=== PATIENT | male | born 1955 | race Caucasian/White ===

== ENCOUNTER → 2017-09-17 | Outpatient (CLI) | payer BC ==
[2017-09-17 13:16] LABS: ALANINE AMINOTRANSFERASE 39 U/L (21-72); ALBUMIN 4.4 g/dL (3.5-5.0); ALKALINE PHOSPHATASE 115 U/L (38-126); ANION GAP 11 (5-19); ASPARTATE AMINO TRANSFERASE 24 U/L (17-59); BILIRUBIN,DIRECT 0.5 mg/dL (0.0-0.4); BILIRUBIN,TOTAL 0.7 mg/dL (0.2-1.3); BLOOD UREA NITROGEN 19 mg/dL (7-20); CALCIUM 9.7 mg/dL (8.4-10.2); CARBON DIOXIDE 27 mmol/L (22-30); CHLORIDE 108 mmol/L (98-107); CREATININE RESULT 0.98 mg/dL (0.52-1.25); GLUCOSE 99 mg/dL (75-110); SODIUM 145.9 mmol/L (137-145); TOTAL PROTEIN 7.3 g/dL (6.3-8.2)
== END ==
LOC: LAB 12:18
PROVIDERS: ATTEND Registered Nurse
DX: E11.65 Type 2 diabetes mellitus with hyperglycemia (principal)
CPT/HCPCS: 36415; 80053; 83036

== ENCOUNTER 2017-10-19 07:54 | Emergency (ER) | payer BC ==
[2017-10-19] MEDS ORDERED: MORPHINE SULFATE 10 MG/ML INJ IV ONE ×2 (08:01→09:27)
[2017-10-19 08:31] LABS: ABSOLUTE BASOPHILS # (AUTO) 0.1 10^3/uL (0.0-0.2); ABSOLUTE EOSINOPHILS # (AUTO) 0.2 10^3/uL (0.0-0.6); ABSOLUTE LYMPHOCYTES (AUTO) 2.4 10^3/uL (0.5-4.7); ABSOLUTE MONOCYTES (AUTO) 0.9 10^3/uL (0.1-1.4); ABSOLUTE NEUT (AUTO) 3.8 10^3/uL (1.7-8.2); EOSINOPHILS % (AUTO) 2.3 % (0-6); HEMATOCRIT 43.4 % (37.9-51.0); HEMOGLOBIN 14.7 g/dL (13.5-17.0); LYMPHOCYTES % (AUTO) 32.7 % (13-45); MEAN CORPUSCULAR HEMOGLOBIN 31.6 pg (27.0-33.4); MEAN CORPUSCULAR HGB CONC 33.8 g/dL (32.0-36.0); MEAN CORPUSCULAR VOLUME 94 fl (80-97); MONOCYTES % (AUTO) 12.4 % (3-13); PLATELET COUNT 204 10^3/uL (150-450); RED BLOOD COUNT 4.64 10^6/uL (4.35-5.55); RED CELL DISTRIBUTION WIDTH 14.4 % (11.5-14.0); SEGMENTED NEUTROPHILS % (AUTO) 51.6 % (42-78); TOTAL CELLS COUNTED % (AUTO) 100 %; WHITE BLOOD COUNT 7.3 10^3/uL (4.0-10.5)
--- NOTE | 2017-10-19 08:52 | ER Document Report ---
ED General - General Chief Complaint: Fall Stated Complaint: FALL/BACK PAIN Time Seen by Provider: 10/19/17 08:00 Mode of Arrival: Ambulatory Information source: Patient Notes: 62-year-old male history of previous back fracture T11-T12 presents with complaints of slipping on ice falling on his back. Patient was found laying on the ice in the parking lot he states he was down for approximately 10 minutes. Patient's largest complaint is rib pain on the right side states he is able to move his extremities TRAVEL OUTSIDE OF THE [place] IN LAST 30 DAYS: No - HPI Onset: Just prior to arrival Onset/Duration: Sudden Quality of pain: Sharp Severity: Severe Pain Level: 5 Associated symptoms: Body/muscle aches Exacerbated by: Movement Relieved by: Denies Similar symptoms previously: No Recently seen / treated by doctor: No - Related Data Allergies/Adverse Reactions: butorphanol tartrate [From Stadol] Allergy (Unknown, Verified 10/19/17 08:33) nalbuphine HCl [From Nubain] Allergy (Unknown, Verified 10/19/17 08:33) pseudoephedrine HCl [From Sudafed] Allergy (Unknown, Verified 10/19/17 08:33) triprolidine HCl [From Actifed] Allergy (Unknown, Verified 10/19/17 08:33) Past Medical History - Social History Smoking Status: Never Smoker Cigarette use (# per day): No Chew tobacco use (# tins/day): No Smoking Education Provided: No Frequency of alcohol use: None Drug Abuse: None Family History: DM, Hypertension Patient has suicidal ideation: No Patient has homicidal ideation: No - Past Medical History Cardiac Medical History: Reports: Hx Coronary Artery Disease, Hx Hypercholesterolemia, Hx Hypertension Pulmonary Medical History: Denies: Hx Tuberculosis Endocrine Medical History: Reports: Hx Diabetes Mellitus Type 2 Renal/ Medical History: Reports: Hx Kidney Stones. Denies: Hx Peritoneal Dialysis GI Medical History: Reports: Hx Gastroesophageal Reflux Disease Psychiatric Medical History: Reports: Hx Depression Past Surgical History: Reports: Hx Appendectomy, Hx Cardiac Catheterization - 1 stent, Hx Coronary Stent, Hx Orthopedic Surgery - shoulder, knee, elbow - Immunizations Hx Diphtheria, Pertussis, Tetanus Vaccination: Yes Hx Pneumococcal Vaccination: 09/11/12 Review of Systems - Review of Systems Notes: REVIEW OF SYSTEMS: CONSTITUTIONAL : Denies fever, chills, or sweats. Denies recent illness. EENT: Denies eye, ear, throat, or mouth pain or symptoms. Denies nasal or sinus congestion or discharge. Denies throat, tongue, or mouth swelling or difficulty swallowing. CARDIOVASCULAR: Denies chest pain. Denies palpitations or racing or irregular heart beat. Denies ankle edema. RESPIRATORY: Denies cough, cold, or chest congestion. Denies shortness of breath, difficulty breathing, or wheezing. GASTROINTESTINAL: Denies abdominal pain or distention. Denies nausea, vomiting , or diarrhea. Denies blood in vomitus, stools, or per rectum. Denies black, tarry stools. Denies constipation. GENITOURINARY: Denies difficulty urinating, painful urination, burning, frequency, blood in urine, or discharge. MUSCULOSKELETAL: Admits to back pain right rib pain SKIN: Denies rash, lesions or sores. HEMATOLOGIC : Denies easy bruising or bleeding. LYMPHATIC: Denies swollen, enlarged glands. NEUROLOGICAL: Denies confusion or altered mental status. Denies passing out or loss of consciousness. Denies dizziness or lightheadedness. Denies headache. Denies weakness or paralysis or loss of use of either side. Denies problems with gait or speech. Denies sensory loss, numbness, or tingling. Denies seizures. PSYCHIATRIC: Denies anxiety or stress. Denies depression, suicidal ideation, or homicidal ideation. ALL OTHER SYSTEMS REVIEWED AND NEGATIVE. Dictation was performed using [employer] voice recognition software PHYSICAL EXAMINATION: GENERAL: Well-appearing, well-nourished and in no acute distress. HEAD: Atraumatic, normocephalic. EYES: Pupils equal round and reactive to light, extraocular movements intact, sclera anicteric, conjunctiva are normal. ENT: Nares patent, oropharynx clear without exudates. Moist mucous membranes. NECK: C-collar immediately placed LUNGS: Breath sounds clear to auscultation bilaterally and equal. No wheezes rales or rhonchi. HEART: Regular rate and rhythm without murmurs ABDOMEN: Soft, nontender, nondistended abdomen. No guarding, no rebound. No masses appreciated. Musculoskeletal: Patient is noted to have tenderness on palpation of the thoracic spine right-sided ribs NEUROLOGICAL: Cranial nerves grossly intact. Normal speech, normal gait. Normal sensory, motor exams PSYCH: Normal mood, normal affect. SKIN: Warm, Dry, normal turgor, no rashes or lesions noted. Course - Re-evaluation Re-evalutation: 10/19/17 08:51 Lab work imaging is pending patient was found by nurse tells leaving may have been down for approximately 10 minutes, the cold wet clothes were taken off the patient and multiple blankets were placed, trauma workup pending 10/19/17 10:02 CT imaging noted no significant abnormality, I discussed patient's pain, I will give him off from work for 1 week given his traumatic injury, he is otherwise well-appearing has no neurological deficits and stable for discharge After performing a Medical Screening Examination, I estimate there is LOW risk for INTRACRANIAL HEMORRHAGE, UNSTABLE SPINE FRACTURE, CENTRAL CORD SYNDROME, CAUDA EQUINA, THORACIC AORTIC DISSECTION, PNEUMOTHORAX, PERFORATED BOWEL, RUPTURED ABDOMINAL AORTIC ANEURYSM, ACUTE TENDON RUPTURE, COMPARTMENT SYNDROME, or OPEN FRACTURE, thus I consider the discharge disposition reasonable. Also, there is no evidence or peritonitis, sepsis, or toxicity. I have reevaluated this patient multiple times and no significant life threatening changes are noted. The patient and I have discussed the diagnosis and risks, and we agree with discharging home to follow-up with their primary doctor with the understanding that symptoms and presentations can change. We also discussed returning to the Emergency Department immediately if new or worsening symptoms occur. We have discussed the symptoms which are most concerning (e.g., bloody stool, fever, changing or worsening pain, vomiting) that necessitate immediate return. - Laboratory Result Diagrams: 10/19/17 08:18 10/19/17 08:18 Laboratory results interpreted by me: 10/19/17 10/19/17 08:18 08:18 RDW 14.4 H Chloride 108 H BUN 22 H - Diagnostic Test Radiology reviewed: Image reviewed, Reports reviewed Discharge - Discharge Clinical Impression: Rib pain on right side Fall Qualifiers: Encounter type: initial encounter Qualified Code(s): W19.XXXA - Unspecified fall, initial encounter Condition: Stable Disposition: HOME, SELF-CARE Instructions: Rib Contusion ([facility]) Additional Instructions: Follow up with your physician tomorrow for further care or return to the ED IMMEDIATELY if symptoms worsen or new concerns occur. If you cannot afford to follow up with your primary care physician a list of low cost clinics have been provided at the end of your discharge papers as well. Prescriptions: Oxycodone HCl/Acetaminophen [Percocet 5-325 mg Tablet] 1 - 2 tab PO Q4H PRN #20 tablet PRN Reason:
[2017-10-19 08:54] LABS: ALANINE AMINOTRANSFERASE 37 U/L (21-72); ALBUMIN 4.2 g/dL (3.5-5.0); ALKALINE PHOSPHATASE 102 U/L (38-126); ANION GAP 9 (5-19); ASPARTATE AMINO TRANSFERASE 29 U/L (17-59); BILIRUBIN,DIRECT 0.3 mg/dL (0.0-0.4); BILIRUBIN,TOTAL 0.4 mg/dL (0.2-1.3); BLOOD UREA NITROGEN 22 mg/dL (7-20); CALCIUM 9.7 mg/dL (8.4-10.2); CARBON DIOXIDE 28 mmol/L (22-30); CHLORIDE 108 mmol/L (98-107); GLUCOSE 100 mg/dL (75-110); POTASSIUM 4.1 mmol/L (3.6-5.0); SODIUM 144.8 mmol/L (137-145); TOTAL PROTEIN 7.2 g/dL (6.3-8.2)
--- NOTE | 2017-10-19 09:31 | RADIOLOGY REPORT (SQ) ---
EXAM DESCRIPTION: CT CERVICAL SPINE WITHOUT COMPLETED DATE/TIME: 10/19/2017 9:21 am REASON FOR STUDY: fall COMPARISON: CT cervical spine 09/29/2013 TECHNIQUE: Axial images acquired through the cervical spine without intravenous contrast. Images re viewed with lung, soft tissue and bone windows. Reconstructed coronal and sagittal MPR images review ed. Images stored on PACS. All CT scanners at this facility use dose modulation, iterative reconstruction, and/or weight based d osing when appropriate to reduce radiation dose to as low as reasonably achievable (ALARA). [facility]: Dose Right [facility]: CareDose [facility]: Dose Right [facility]: Teradose 4D [facility]: Smart [employer] RADIATION DOSE: CT Rad equipment meets quality standard of care and radiation dose reduction techniq ues were employed. CTDIvol: 25.3 mGy. DLP: 519 mGy-cm. mGy. LIMITATIONS: None. FINDINGS: ALIGNMENT: Anatomic. MINERALIZATION: Normal. VERTEBRAL BODIES: No fractures or dislocation. DISCS: No high-grade central canal narrowing. FACETS, LATERAL MASSES, POSTERIOR ELEMENTS: No fractures. No dislocation. No acute findings.There i s multilevel foraminal narrowing from facet and uncovertebral hypertrophy. HARDWARE: None in the spine. VISUALIZED RIBS: No fractures. LUNG APICES AND SOFT TISSUES: No significant or acute findings. OTHER: No other significant finding. IMPRESSION: NO ACUTE FINDINGS IN THE CERVICAL SPINE. TECHNICAL DOCUMENTATION: JOB ID: [id number] Quality ID # [id number]: Final reports with documentation of one or more dose reduction techniques (e.g., Au tomated exposure control, adjustment of the mA and/or kV according to patient size, use of iterative reconstruction technique) 2010 [employer]- All Rights Reserved
--- NOTE | 2017-10-19 09:42 | RADIOLOGY REPORT (SQ) ---
EXAM DESCRIPTION: CT CHEST WITH; CT ABD/PELVIS WITH IV ONLY COMPLETED DATE/TIME: 10/19/2017 9:21 am REASON FOR STUDY: fall injury, pain right-sided chest and abdomen COMPARISON: CT abdomen pelvis 01/08/2016 CT chest 04/27/2014 CONTRAST TYPE AND DOSE: contrast/concentration: Isovue 370.00 mg/ml; Total Contrast Delivered: 99.0 ml; Total Saline Delivered: 48.3 ml RENAL FUNCTION: Creatinine 0.98 TECHNIQUE: CT scan of the chest performed using helical scanning technique with dynamic intravenous contrast injection. Images reviewed with lung, soft tissue and bone windows. Reconstructed coronal a nd sagittal MPR images reviewed. All images stored on PACS. CT scan of the abdomen and pelvis performed with intravenous and without oral contrastusing helical s radha technique with dynamic intravenous contrast injection. Images reviewed with lung, soft tissu e and bone windows. Reconstructed coronal and sagittal MPR images reviewed. Delayed images for eval uation of the urinary system also acquired and evaluated. All images stored on PACS. All CT scanners at this facility use dose modulation, iterative reconstruction, and/or weight based d osing when appropriate to reduce radiation dose to as low as reasonably achievable (ALARA). [facility]: Dose Right [facility]: CareDose [facility]: Dose Right [facility]: Teradose 4D [facility]: [employer] RADIATION DOSE: CT Rad equipment meets quality standard of care and radiation dose reduction techniq ues were employed. CTDIvol: 20.4 - 21.0 mGy. DLP: 2721 mGy-cm. . LIMITATIONS: None. FINDINGS: CHEST: LUNGS AND PLEURA: No opacities, nodules, masses. No pneumothorax. No effusions. HILAR AND MEDIASTINAL STRUCTURES: No identified masses or abnormal nodes. HEART AND VASCULAR STRUCTURES: No aneurysm or dissection. No central pulmonary emboli. No pericardi al effusion. LAD stent versus very heavy [place] coronary artery calcification HARDWARE: None. THYROID AND OTHER SOFT TISSUES: No masses. No adenopathy. BONES: No significant finding. OTHER: No other significant finding. ABDOMEN AND PELVIS: LIVER: Normal size. No masses. No dilated ducts. SPLEEN: Normal size. No focal lesions. PANCREAS: No masses. No significant calcifications. No adjacent inflammation or peripancreatic fluid collections. Pancreatic duct not dilated. GALLBLADDER: No identified stones by CT criteria. No inflammatory changes to suggest cholecystitis. ADRENAL GLANDS: No significant masses or asymmetry. RIGHT KIDNEY AND URETER: No solid masses. 8 to 9 mm right midpole intrarenal nonobstructive stone, 8 10 Hounsfield units. No hydronephrosis or hydroureter. LEFT KIDNEY AND URETER: No solid masses. No significant calcification. No hydronephrosis or hydrouret er. AORTA AND VESSELS: No aneurysm. No dissection. Renal arteries, SMA, celiac without stenosis. Duplica franci inferior vena cava. RETROPERITONEUM: No retroperitoneal adenopathy, hemorrhage or masses. BOWEL AND PERITONEAL CAVITY: No masses or inflammatory changes. No free fluid or peritoneal masses. APPENDIX: Surgically absent ABDOMINAL WALL: No masses. No hernias. BONES: No significant or acute findings. PELVIS: No other significant finding. No free fluid. Urinary bladder unremarkable. No masses or ad enopathy. IMPRESSION: NORMAL CT OF THE CHEST WITH IV CONTRAST. NORMAL CT OF THE ABDOMEN AND PELVIS WITH ORAL AND INTRAVENOUS CONTRAST. TECHNICAL DOCUMENTATION: JOB ID: [id number] Quality ID # [id number]: Final reports with documentation of one or more dose reduction techniques (e.g., Au tomated exposure control, adjustment of the mA and/or kV according to patient size, use of iterative reconstruction technique) 2010 [employer]- All Rights Reserved
[2017-10-19 12:12] VITALS: BP 157/60
== END 2017-10-19 12:12 | disposition home or self-care (01) ==
LOC: ER 07:54
DX: T14.90XA Injury, unspecified, initial encounter (principal); R07.81 Pleurodynia; M54.9 Dorsalgia, unspecified; W00.0XXA Fall on same level due to ice and snow, initial encounter; Y92.481 Parking lot as the place of occurrence of the external cause; I25.10 Atherosclerotic heart disease of native coronary artery without angina pectoris; I10 Essential (primary) hypertension; E11.9 Type 2 diabetes mellitus without complications; Z88.5 Allergy status to narcotic agent; Z88.8 Allergy status to other drugs, medicaments and biological substances; Z95.5 Presence of coronary angioplasty implant and graft
CPT/HCPCS: 96376; 99283; 96374; 36415; 85025; 80053; 71260; 72125; 74177; J2270

== ENCOUNTER → 2018-01-20 | Outpatient (CLI) | payer BC ==
[2018-01-20 13:31] LABS: ALANINE AMINOTRANSFERASE 40 U/L (21-72); ALBUMIN 4.3 g/dL (3.5-5.0); ALKALINE PHOSPHATASE 98 U/L (38-126); ANION GAP 10 (5-19); ASPARTATE AMINO TRANSFERASE 26 U/L (17-59); BILIRUBIN,DIRECT 0.2 mg/dL (0.0-0.4); BILIRUBIN,TOTAL 0.5 mg/dL (0.2-1.3); BLOOD UREA NITROGEN 24 mg/dL (7-20); CALCIUM 9.9 mg/dL (8.4-10.2); CARBON DIOXIDE 31 mmol/L (22-30); CHLORIDE 106 mmol/L (98-107); CHOLESTEROL 141.56 mg/dL (0-200); GLUCOSE 97 mg/dL (75-110); SODIUM 147.2 mmol/L (137-145); TOTAL PROTEIN 6.8 g/dL (6.3-8.2); TRIGLYCERIDES 213 mg/dL (<150)
[2018-01-20 13:42] LABS: DIRECT LDL 68 mg/dL (<100)
[2018-01-20 13:44] LABS: VLDL CHOLESTEROL 42.6 mg/dL (10-31)
[2018-01-21 11:40] LABS: CREATININE URINE 194.3 mg/dL (Not Estab.)
[2018-01-21 12:07] LABS: MICROALBUMIN URINE <3.0 ug/mL (Not Estab.)
== END ==
LOC: LAB 12:24
PROVIDERS: ATTEND Registered Nurse
DX: E11.65 Type 2 diabetes mellitus with hyperglycemia (principal); E55.9 Vitamin D deficiency, unspecified
CPT/HCPCS: 36415; 80053; 80061; 82043; 82306; 82570; 83036

== ENCOUNTER → 2018-02-17 | Outpatient (CLI) | payer BC ==
[2018-02-17 20:18] LABS: HEMATOCRIT 48.4 % (37.9-51.0); HEMOGLOBIN 16.7 g/dL (13.5-17.0); MEAN CORPUSCULAR HEMOGLOBIN 32.8 pg (27.0-33.4); MEAN CORPUSCULAR HGB CONC 34.5 g/dL (32.0-36.0); MEAN CORPUSCULAR VOLUME 95 fl (80-97); PLATELET COUNT 254 10^3/uL (150-450); RED BLOOD COUNT 5.08 10^6/uL (4.35-5.55); RED CELL DISTRIBUTION WIDTH 14.6 % (11.5-14.0)
[2018-02-17 20:23] LABS: APPEARANCE,URINE CLEAR; BILIRUBIN,URINE NEGATIVE (NEGATIVE); COLOR,URINE YELLOW; GLUCOSE, URINE >=500 mg/dL (NEGATIVE); KETONES,URINE NEGATIVE (NEGATIVE); LEUKOCYTE ESTERASE,URINE NEGATIVE (NEGATIVE); NITRITE,URINE NEGATIVE (NEGATIVE); PROTEIN,URINE NEGATIVE (NEGATIVE); URINE SPECIFIC GRAVITY 1.025; UROBILINOGEN,URINE NEGATIVE mg/dL (<2.0)
[2018-02-17 20:24] LABS: ANION GAP 15 (5-19); BLOOD UREA NITROGEN 24 mg/dL (7-20); CALCIUM 10.3 mg/dL (8.4-10.2); CARBON DIOXIDE 29 mmol/L (22-30); CHLORIDE 104 mmol/L (98-107); GLUCOSE 104 mg/dL (75-110); POTASSIUM 4.8 mmol/L (3.6-5.0)
== END ==
LOC: LAB 19:43
PROVIDERS: ATTEND Internal Medicine Nephrology
DX: I12.9 Hypertensive chronic kidney disease with stage 1 through stage 4 chronic kidney disease, or unspecified chronic kidney disease (principal); N18.2 Chronic kidney disease, stage 2 (mild); E11.9 Type 2 diabetes mellitus without complications; M10.00 Idiopathic gout, unspecified site
CPT/HCPCS: 36415; 80048; 81001; 85027

== ENCOUNTER → 2018-03-10 | Outpatient (CLI) | payer BC ==
[2018-03-10 15:37] LABS: ANION GAP 15 (5-19); BLOOD UREA NITROGEN 18 mg/dL (7-20); CARBON DIOXIDE 29 mmol/L (22-30); CHLORIDE 102 mmol/L (98-107); GLUCOSE 162 mg/dL (75-110); POTASSIUM 4.7 mmol/L (3.6-5.0); SODIUM 145.5 mmol/L (137-145)
== END ==
LOC: LAB 15:02
PROVIDERS: ATTEND Internal Medicine Nephrology
DX: E87.6 Hypokalemia (principal); N18.2 Chronic kidney disease, stage 2 (mild)
CPT/HCPCS: 36415; 80048

== ENCOUNTER → 2018-03-24 | Outpatient (CLI) | payer BC | LOC: HHS 10:11 | DX: Z12.83 Encounter for screening for malignant neoplasm of skin (principal) ==

== ENCOUNTER → 2018-06-03 | Outpatient (CLI) | payer BC ==
[2018-06-03 19:28] LABS: ALANINE AMINOTRANSFERASE 42 U/L (21-72); ALBUMIN 4.2 g/dL (3.5-5.0); ALKALINE PHOSPHATASE 105 U/L (38-126); ANION GAP 15 (5-19); ASPARTATE AMINO TRANSFERASE 29 U/L (17-59); BILIRUBIN,DIRECT 0.2 mg/dL (0.0-0.4); BILIRUBIN,TOTAL 0.6 mg/dL (0.2-1.3); BLOOD UREA NITROGEN 24 mg/dL (7-20); CALCIUM 9.6 mg/dL (8.4-10.2); CARBON DIOXIDE 25 mmol/L (22-30); CHLORIDE 106 mmol/L (98-107); CHOLESTEROL 193.15 mg/dL (0-200); GLUCOSE 110 mg/dL (75-110); POTASSIUM 4.1 mmol/L (3.6-5.0); SODIUM 145.9 mmol/L (137-145); TOTAL PROTEIN 7.3 g/dL (6.3-8.2); TRIGLYCERIDES 179 mg/dL (<150)
[2018-06-03 19:39] LABS: DIRECT LDL 123 mg/dL (<100)
[2018-06-03 19:44] LABS: VLDL CHOLESTEROL 35.8 mg/dL (10-31)
== END ==
LOC: LAB 18:28
PROVIDERS: ATTEND Internal Medicine Endocrinology, Diabetes & Metabolism
DX: E11.65 Type 2 diabetes mellitus with hyperglycemia (principal)
CPT/HCPCS: 36415; 80053; 80061; 83036

== ENCOUNTER → 2018-08-30 | Outpatient (CLI) | payer BC ==
[2018-08-30 12:27] LABS: HEMATOCRIT 44.6 % (37.9-51.0); HEMOGLOBIN 15.3 g/dL (13.5-17.0); MEAN CORPUSCULAR HEMOGLOBIN 32.4 pg (27.0-33.4); MEAN CORPUSCULAR HGB CONC 34.3 g/dL (32.0-36.0); MEAN CORPUSCULAR VOLUME 94 fl (80-97); PLATELET COUNT 231 10^3/uL (150-450); RED BLOOD COUNT 4.73 10^6/uL (4.35-5.55); RED CELL DISTRIBUTION WIDTH 14.5 % (11.5-14.0); WHITE BLOOD COUNT 6.9 10^3/uL (4.0-10.5)
[2018-08-30 12:35] LABS: APPEARANCE,URINE CLEAR; BILIRUBIN,URINE NEGATIVE (NEGATIVE); COLOR,URINE YELLOW; GLUCOSE, URINE >=500 mg/dL (NEGATIVE); KETONES,URINE NEGATIVE (NEGATIVE); LEUKOCYTE ESTERASE,URINE NEGATIVE (NEGATIVE); NITRITE,URINE NEGATIVE (NEGATIVE); PROTEIN,URINE NEGATIVE (NEGATIVE)
[2018-08-30 12:45] LABS: ANION GAP 11 (5-19); BLOOD UREA NITROGEN 25 mg/dL (7-20); CALCIUM 9.7 mg/dL (8.4-10.2); CARBON DIOXIDE 26 mmol/L (22-30); CHLORIDE 109 mmol/L (98-107); GLUCOSE 83 mg/dL (75-110); POTASSIUM 4.6 mmol/L (3.6-5.0); SODIUM 145.5 mmol/L (137-145)
[2018-08-31 12:38] LABS: CREATININE URINE 139.5 mg/dL (Not Estab.); MICROALBUMIN URINE <3.0 ug/mL (Not Estab.)
== END ==
LOC: LAB 12:10
PROVIDERS: ATTEND Internal Medicine Nephrology
DX: I12.9 Hypertensive chronic kidney disease with stage 1 through stage 4 chronic kidney disease, or unspecified chronic kidney disease (principal); N18.2 Chronic kidney disease, stage 2 (mild); E87.6 Hypokalemia; M10.00 Idiopathic gout, unspecified site
CPT/HCPCS: 36415; 80048; 81001; 82043; 82570; 83735; 85027

== ENCOUNTER → 2018-09-16 | Outpatient (CLI) | payer BC ==
[2018-09-16 13:16] LABS: ALANINE AMINOTRANSFERASE 30 U/L (21-72); ALBUMIN 4.6 g/dL (3.5-5.0); ALKALINE PHOSPHATASE 100 U/L (38-126); ASPARTATE AMINO TRANSFERASE 26 U/L (17-59); BILIRUBIN,DIRECT 0.3 mg/dL (0.0-0.4); BILIRUBIN,TOTAL 0.5 mg/dL (0.2-1.3); TOTAL PROTEIN 7.5 g/dL (6.3-8.2); URIC ACID 5.3 mg/dL (3.5-8.5)
== END ==
LOC: LAB 12:19
PROVIDERS: ATTEND Nurse Practitioner
DX: E55.9 Vitamin D deficiency, unspecified (principal); E78.5 Hyperlipidemia, unspecified; M10.09 Idiopathic gout, multiple sites
CPT/HCPCS: 36415; 80076; 82306; 84153; 84550

== ENCOUNTER 2018-10-07 10:16 | Day surgery (SDC) | payer BC ==
[~2018-10-07 10:16] MED LIST: BALANCED SALT IRRIG SOLN COMB2 15 ML BOTTLE ONE; POVIDONE-IODINE 5% OPH PREP SOLN 30 ML ONE; TOBRAMYCIN SULFATE/DEXAMETH OPH OINTMENT 3.5 GM ONE
[2018-10-07] MEDS ORDERED: MIDAZOLAM 2 MG/2 ML INJ ONE ×2 (10:58→11:25)
[2018-10-07] MEDS ORDERED: PROPOFOL INJ 200 MG/20 ML VIAL IV ONE (10:58)
[2018-10-07] MEDS ORDERED: FENTANYL CITRATE INJ/PF 100 MCG/2 ML AMPUL ONE (10:58)
[2018-10-07] MEDS: BUPIVACAINE HCL 0.75% INJ/PF (7.5 MG/1 ML) 10 ML SDV ONE ×2 (11:27)
[2018-10-07] MEDS: LIDOCAINE 2% INJ-PF (20 MG/ML) 10 ML AMPUL ONE ×2 (11:27)
[2018-10-07] MEDS: THROMBIN (BOVINE) TOPICAL 5000 UNIT VIAL ONE ×2 (11:27)
[2018-10-07] MEDS: TETRACAINE HCL 0.5% OPH SOLN 4 ML ONE ×2 (11:27)
[2018-10-07] MEDS: NEO/POLYMYX B SULF/DEXAMETH OPH OINTMENT 3.5 GM ONE ×2 (12:04→12:25)
[2018-10-07] MEDS ORDERED: ACETAMINOPHEN 325 MG TABLET ONE (12:54)
--- NOTE | 2018-10-07 23:08 | [facility] OPERATIVE REPORT E ---
[facility] Operative Report NAME: CINTHYA CARR AGE: 63Y DATE OF SURGERY: 10/07/2018 ROOM: PREOPERATIVE DIAGNOSIS: BILATERAL UPPER LID DERMATOCHALASIA, FUNCTIONAL. OPERATION: Bilateral upper lid blepharoplasty, functional. ESTIMATED BLOOD LOSS: Less than 10 mL. SURGEON: PAUL CRAMER M.D. ANESTHESIA: 2% lidocaine with epinephrine as well as MAC. COMPLICATIONS: None. PROCEDURE: After obtaining appropriate informed consent, appropriate visual rankin were taken and the skin was found to be resting on the lashes, restricting his superior visual field. Photos were taken. The patient was brought back to the operating room, where the face was prepped with Betadine and sterile technique was used. The appropriate amount of skin was marked using a marking pen following the lid crease which was approximately 6 mm from the lash line, and then drawn out so the excess skin could be removed, being careful not to remove too much to cause any lag. After the appropriate markings were done, 2% lidocaine with epinephrine was injected into the lids to help with anesthesia. Following this, a 15 blade was used to cut along these pre-marked skin markings. Bleph scissors was used to excise the skin and part of the orbicularis. Hemostasis was achieved with cautery. Thrombin soaked sponges were applied to the incision. This was repeated on both upper lids. 6-0 silk was used to approximate the orbicularis skin in simple interrupted technique for 3 sutures across the wound. Following this, a 6-0 Nylon was used to run suture through the skin to approximate the incision. The appropriate amount of skin was taken. The patient tolerated the procedure well. Maxitrol ointment was placed on the incisions and the patient was brought back to postop recovery, where an ice pack was applied. DICTATING PHYSICIAN: PAUL CRAMER M.D. [id number] PHY#: [id number] ID: [id number] JOB#: [id number] ACCT: [id number] cc:PAUL CRAMER M.D. > MTDD
--- NOTE | 2018-10-07 23:08 | [facility] DISCHARGE SUMMARY E ---
[facility] Discharge Summary NAME: CINTHYA CARR AGE: 63Y ADMITTED: 10/07/2018 DISCHARGED: This 63-year-old male underwent bilateral upper lid blepharoplasty, functional. DIAGNOSIS: Bilateral upper lid dermatochalasis blocking his vision. He should be on a regular diet. No bending at the waist and no heavy lifting. He should apply his Maxitrol ointment to his lids twice daily and ice to his upper lids for 10 minutes every hour for the first 6 hours, followed by four times daily. I am going to see him for a 1-week postop and he is to call me if he has any questions or concerns. DICTATING PHYSICIAN: PAUL CRAMER M.D. [id number] Y#: 2013 [id number] ID: [id number] JOB#: [id number] ACCT: [id number] cc:PAUL CRAMER M.D. >
== END 2018-10-07 13:35 | disposition home or self-care (01) ==
LOC: SC 10:16
PROVIDERS: ATTEND Internal Medicine
DX: H02.831 Dermatochalasis of right upper eyelid (principal); H02.834 Dermatochalasis of left upper eyelid; H53.453 Other localized visual field defect, bilateral; E11.9 Type 2 diabetes mellitus without complications; I10 Essential (primary) hypertension; M19.90 Unspecified osteoarthritis, unspecified site; E78.00 Pure hypercholesterolemia, unspecified; M10.9 Gout, unspecified; Z87.891 Personal history of nicotine dependence; Z88.8 Allergy status to other drugs, medicaments and biological substances; Z79.82 Long term (current) use of aspirin; Z79.899 Other long term (current) drug therapy; Z79.02 Long term (current) use of antithrombotics/antiplatelets; Z79.84 Long term (current) use of oral hypoglycemic drugs
CPT/HCPCS: 15823; 82962; J2250; J3490 ×7; J3010; J2704; 103

== ENCOUNTER → 2019-01-19 | Outpatient (CLI) | payer BC ==
[2019-01-19 12:51] LABS: HEMOGLOBIN 15.9 g/dL (13.5-17.0); MEAN CORPUSCULAR HEMOGLOBIN 31.7 pg (27.0-33.4); MEAN CORPUSCULAR HGB CONC 33.9 g/dL (32.0-36.0); MEAN CORPUSCULAR VOLUME 94 fl (80-97); PLATELET COUNT 244 10^3/uL (150-450); RED BLOOD COUNT 5.02 10^6/uL (4.35-5.55); RED CELL DISTRIBUTION WIDTH 14.4 % (11.5-14.0); WHITE BLOOD COUNT 8.2 10^3/uL (4.0-10.5)
[2019-01-19 13:13] LABS: ALANINE AMINOTRANSFERASE 41 U/L (21-72); ALBUMIN 4.3 g/dL (3.5-5.0); ALKALINE PHOSPHATASE 88 U/L (38-126); ANION GAP 7 (5-19); ASPARTATE AMINO TRANSFERASE 29 U/L (17-59); BILIRUBIN,DIRECT 0.2 mg/dL (0.0-0.4); BILIRUBIN,TOTAL 0.8 mg/dL (0.2-1.3); BLOOD UREA NITROGEN 26 mg/dL (7-20); CALCIUM 10.3 mg/dL (8.4-10.2); CARBON DIOXIDE 26 mmol/L (22-30); CHLORIDE 108 mmol/L (98-107); CHOLESTEROL 212.24 mg/dL (0-200); GLUCOSE 79 mg/dL (75-110); POTASSIUM 4.4 mmol/L (3.6-5.0); SODIUM 140.8 mmol/L (137-145); TOTAL PROTEIN 7.3 g/dL (6.3-8.2); TRIGLYCERIDES 129 mg/dL (<150)
[2019-01-19 13:24] LABS: DIRECT LDL 137 mg/dL (<100)
== END ==
LOC: LAB 12:16
PROVIDERS: ATTEND Internal Medicine Endocrinology, Diabetes & Metabolism
DX: E11.65 Type 2 diabetes mellitus with hyperglycemia (principal)
CPT/HCPCS: 36415; 80053; 80061; 83036; 84443; 85027

== ENCOUNTER 2019-01-25 09:55 | Emergency (ER) | payer BC ==
[2019-01-25] MEDS ORDERED: ONDANSETRON HCL INJ/PF 4 MG/2 ML SDV ONE (10:18)
[2019-01-25] MEDS ORDERED: ONDANSETRON HCL INJ/PF 4 MG/2 ML SDV IV ONE (10:19)
--- NOTE | 2019-01-25 10:20 | ER Document Report ---
ED General - General Chief Complaint: Flank Pain Stated Complaint: FLANK PAIN/VOMITING Time Seen by Provider: 01/25/19 10:19 Primary Care Provider: GIBSON AGUILAR MD [Primary Care Provider] - Follow up as needed Mode of Arrival: Ambulatory Information source: Patient TRAVEL OUTSIDE OF THE [place] IN LAST 30 DAYS: No - HPI Notes: 63-year-old male presents to the ED with complaints of right flank pain that radiates down to right testicular area that started this morning around 2 AM, the pain comes and goes. When pain is severe, pain is 9 out of 10. Does have a history nephrolithiasis. Does not currently see a silver miner or urologist. Denies any trauma worse with time, nothing makes better. Denies fevers, chills, chest pain,palpitations, shortness of breath, dyspnea, nausea, vomiting, diarrhea, abdominal pain, hematuria,blurred vision, double vision, loss of vision, speech changes, LH, dizziness, syncope, headaches, wheezing, ST, URI, neck pain, weakness, bowel or bladder dysfunction, saddle anesthesia, numbness or tingling in bilateral upper or lower extremities equally, muscle paralysis, weakness in bilateral upper or lower extremities equally or rash. Denies IV drug use., is not tried any [id number] medication. - Related Data Allergies/Adverse Reactions: butorphanol tartrate [From Stadol] Allergy (Severe, Verified 01/25/19 09:57) Anaphylaxis pseudoephedrine HCl [From Sudafed] Allergy (Intermediate, Verified 01/25/19 09:57) Hives triprolidine HCl [From Actifed] Allergy (Intermediate, Verified 01/25/19 09:57) Hives nalbuphine HCl [From Nubain] Allergy (Unknown, Verified 01/25/19 09:57) Anaphylaxis TOMATO Allergy (Intermediate, Uncoded 01/25/19 09:57) Hives Past Medical History - General Information source: Patient - Social History Smoking Status: Never Smoker Family History: Reviewed & Not Pertinent, DM, Hypertension Patient has suicidal ideation: No Patient has homicidal ideation: No - Past Medical History Cardiac Medical History: Reports: Hx Coronary Artery Disease, Hx Hypercholesterolemia, Hx Hypertension - MEDICATED Denies: Hx Heart Attack Pulmonary Medical History: Denies: Hx Asthma, Hx Tuberculosis Neurological Medical History: Denies: Hx Cerebrovascular Accident, Hx Seizures Endocrine Medical History: Reports: Hx Diabetes Mellitus Type 2 Renal/ Medical History: Reports: Hx Kidney Stones. Denies: Hx Peritoneal Dialysis GI Medical History: Reports: Hx Gastroesophageal Reflux Disease, Hx Ulcer - YEARS AGO. Denies: Hx Hepatitis, Hx Hiatal Hernia Psychiatric Medical History: Reports: Hx Depression Infectious Medical History: Denies: Hx Hepatitis Past Surgical History: Reports: Hx Appendectomy, Hx Cardiac Catheterization - 1 stent, Hx Coronary Stent, Hx Orthopedic Surgery - shoulder, knee, elbow. Denies: Hx Open Heart Surgery, Hx Pacemaker - Immunizations Hx Diphtheria, Pertussis, Tetanus Vaccination: Yes Hx Pneumococcal Vaccination: 09/11/12 Review of Systems - Review of Systems Constitutional: No symptoms reported EENT: No symptoms reported Cardiovascular: No symptoms reported Respiratory: No symptoms reported Gastrointestinal: See HPI Genitourinary: No symptoms reported Male Genitourinary: No symptoms reported Musculoskeletal: No symptoms reported Skin: No symptoms reported Hematologic/Lymphatic: No symptoms reported Neurological/Psychological: No symptoms reported Physical Exam - Vital signs Vitals: Temp Pulse Resp BP Pulse Ox 98.1 F 68 20 153/84 H 99 01/25/19 10:00 01/25/19 10:00 01/25/19 10:00 01/25/19 10:00 01/25/19 10:00 - Notes Notes: PHYSICAL EXAMINATION: GENERAL: Well-appearing, well-nourished and in no acute distress. HEAD: Atraumatic, normocephalic. EYES: Pupils equal round and reactive to light, extraocular movements intact, sclera anicteric, conjunctiva are normal. ENT: Nares patent, oropharynx clear without exudates. Moist mucous membranes. NECK: Normal range of motion, supple without lymphadenopathy LUNGS: Breath sounds clear to auscultation bilaterally and equal. No wheezes rales or rhonchi. HEART: Regular rate and rhythm without murmurs ABDOMEN: Soft, nontender, nondistended abdomen. No guarding, no rebound. No masses appreciated. Right CVA tenderness appreciated. Both testicles descended Musculoskeletal: Normal range of motion, no pitting or edema. No cyanosis. NEUROLOGICAL: Cranial nerves grossly intact. Normal speech, normal gait. Normal sensory, motor exams PSYCH: Normal mood, normal affect. SKIN: Warm, Dry, normal turgor, no rashes or lesions noted. Course - Re-evaluation Re-evalutation: 01/25/19 10:51 Afebrile vitals stable and in moderate distress due to pain. Presents with findings consistent with acute nephrolithiasis. Urinalysis does show hematuria. Laboratory otherwise unremarkable. Pain was able to be controlled here in the emergency department. Patient is tolerating oral intake. Clinical history is not consistent with an acute abdominal aneurysm or dissection, [place], or pulmonary embolus. Patient unable to give a urine this time. C negative for anemia, no hepatic or renal dysfunction, electrolytes normal vitals have remained within normal limits. CT abdomen pelvis with IV contrast does show a 6 mm stone which is obstructive in the right ureteropelvic junction measuring 6 mm with mild associated right hydronephrosis. Dr. Mansoor Licea, silver miner on-call was consulted at 1415, discussed pertinent radiological, diagnostic and clinical findings, patient CMP unremarkable, creatinine within normal range, and patient is able to tolerate p.o. medication, states that patient would be appropriate to go home follow-up with nephrology as well as PCP for further management of his nephrolithiasis, will discharge home with Zofran, patient cannot drive, drink or operate machinery while taking [place] as it can cause sedation and impairment of cognitive function. patient will be discharged with recommendations to follow-up with urology, pain medications, and return precautions. They are in agreement with this plan and verbalized indications return to emergency department. - Vital Signs Vital signs: Temp Pulse Resp BP Pulse Ox 98.1 F 68 16 119/75 100 01/25/19 10:00 01/25/19 10:00 01/25/19 13:00 01/25/19 12:00 01/25/19 13:00 - Laboratory Result Diagrams: 01/25/19 10:14 01/25/19 10:14 Laboratory results interpreted by me: 01/25/19 01/25/19 10:14 10:14 RDW 14.3 H BUN 24 H Glucose 156 H Discharge - Discharge Clinical Impression: Right nephrolithiasis, Hydrocele, Hydronephrosis Condition: Stable Disposition: HOME, SELF-CARE Instructions: Kidney Stone ([facility]), Hydrocele ([facility]), Oral Narcotic Medication ([facility]), Flomax ([facility]), Ciprofloxacin ([facility]) Additional Instructions: Kidney Stone You are passing or have passed a kidney stone. These stones are usually du e to increased calcium or uric acid concentrations in your urine. Stones within the kidney itself are not painful. The pain occurs as the stone leaves the kidney to pass down the long tube, called the ureter, leading to the bladder. If the stone is small, it will usually pass by itself. Most patients can pass the stone at home. You will usually receive medications for pain, nausea or vomiting, and sometimes a medication to assist in passing the kidney stone. However, if the pain is very severe or if vomiting prevents you from taking oral pain medications, you may need to return for further treatment. Drink three or four quarts of fluids per day. You will be given pain medication (if needed) and urine strainers. Strain all your urine to see if the stone passes. If your doctor has asked you to bring the stone in for analysis, return with the stone once it has passed. Return if pain or vomiting become severe, if you develop a high fever, if you are unable to pass your urine, or if other unusual symptoms occur. Follow-up with primary care provider as well as urologist next 24-48 hours, do not drive, drink or operate heavy machinery while taking medication as it can cause sedation and impairment of cognitive function. Take Flomax as directed, please use strainer to urinate to see if he passed stone increase oral hydration. Your symptoms should improve over the course of the next one week. If you continue to have pain for greater than one week or your pain is not controlled with the pain medications that you have been sent home with you need to return to the emergency department. Please also return if you develop fever, persistent vomiting, or any other symptoms that are concerning to you. You should take ibuprofen 600 mg every 6 hours and use the oral norco as prescribed only for pain not controlled by ibuprofen. You are also been sent home with a medication called Flomax to help pass the stone. You've been given Zofran to assist with nausea. Please follow-up with urology in the next 2-3 days. Prescriptions: Hydrocodone/Acetaminophen [[place] 5-325 Tablet] 1 each PO Q6HP PRN #12 tablet PRN Reason: Ciprofloxacin HCl [Cipro 500 mg Tablet] 500 mg PO BID #14 tablet Ondansetron [Zofran Odt 4 mg Tablet] 1 - 2 tab PO Q4H PRN #15 tab.rapdis PRN Reason: For Nausea/Vomiting Tamsulosin HCl [Flomax 0.4 mg Cap.sr] 0.4 mg PO DAILY #20 cap.sr.24h Forms: Return to Work Referrals: GIBSON AGUILAR MD [Primary Care Provider] - Follow up as needed MANSOOR LICEA MD [ACTIVE STAFF] - Follow up in 3-5 days PRISCILLA JEFFERS MD [COMMUNITY BASED STAFF] - Follow up in 3-5 days
[2019-01-25] MEDS ORDERED: FENTANYL CITRATE INJ/PF 100 MCG/2 ML AMPUL IV ONE (10:25)
[2019-01-25] MEDS ORDERED: KETOROLAC TROMETHAMINE INJ/PF 30 MG/1 ML SDV IV ONE (10:25)
[2019-01-25 10:36] LABS: ABSOLUTE EOSINOPHILS # (AUTO) 0.1 10^3/uL (0.0-0.6); ABSOLUTE MONOCYTES (AUTO) 0.7 10^3/uL (0.1-1.4); ABSOLUTE NEUT (AUTO) 4.4 10^3/uL (1.7-8.2); BASOPHILS % (AUTO) 0.7 % (0-2); EOSINOPHILS % (AUTO) 1.5 % (0-6); HEMATOCRIT 45.2 % (37.9-51.0); HEMOGLOBIN 15.4 g/dL (13.5-17.0); LYMPHOCYTES % (AUTO) 27.6 % (13-45); MEAN CORPUSCULAR HEMOGLOBIN 32.5 pg (27.0-33.4); MEAN CORPUSCULAR HGB CONC 34.2 g/dL (32.0-36.0); MEAN CORPUSCULAR VOLUME 95 fl (80-97); MONOCYTES % (AUTO) 9.3 % (3-13); PLATELET COUNT 247 10^3/uL (150-450); RED BLOOD COUNT 4.76 10^6/uL (4.35-5.55); RED CELL DISTRIBUTION WIDTH 14.3 % (11.5-14.0); SEGMENTED NEUTROPHILS % (AUTO) 60.9 % (42-78); TOTAL CELLS COUNTED % (AUTO) 100 %; WHITE BLOOD COUNT 7.2 10^3/uL (4.0-10.5)
[2019-01-25] MEDS ORDERED: NORMAL SALINE 1000 ML 1,000 ML IV ONE (10:50)
[2019-01-25 10:59] LABS: ALANINE AMINOTRANSFERASE 32 U/L (21-72); ALBUMIN 4.2 g/dL (3.5-5.0); ALKALINE PHOSPHATASE 119 U/L (38-126); ANION GAP 11 (5-19); ASPARTATE AMINO TRANSFERASE 23 U/L (17-59); BILIRUBIN,DIRECT 0.3 mg/dL (0.0-0.4); BILIRUBIN,TOTAL 0.5 mg/dL (0.2-1.3); BLOOD UREA NITROGEN 24 mg/dL (7-20); CALCIUM 9.9 mg/dL (8.4-10.2); CARBON DIOXIDE 25 mmol/L (22-30); CHLORIDE 107 mmol/L (98-107); GLUCOSE 156 mg/dL (75-110); LIPASE 134.1 U/L (23-300); POTASSIUM 4.4 mmol/L (3.6-5.0); SODIUM 142.5 mmol/L (137-145); TOTAL PROTEIN 7.1 g/dL (6.3-8.2)
--- NOTE | 2019-01-25 12:06 | RADIOLOGY REPORT (SQ) ---
EXAM DESCRIPTION: U/S SCROTUM W/DOPPLER COMPLETED DATE/TIME: 01/25/2019 11:45 am REASON FOR STUDY: pain to right testicle from flank COMPARISON: None. TECHNIQUE: Static and realtime hamlin scale imaging of the scrotum and testes. Selected color Doppler and spectral images recorded to document blood flow. LIMITATIONS: None. FINDINGS: RIGHT: TESTICLE: Normal size. Normal echotexture. Normal blood flow. No mass. EPIDIDYMIS: Normal. HYDROCELE OR VARICOCELE: Small hydrocele. HERNIA OR EXTRA-TESTICULAR MASS: No. OTHER: No other significant finding. LEFT: TESTICLE: Normal size. Normal echotexture. Normal blood flow. No mass. EPIDIDYMIS: Normal. HYDROCELE OR VARICOCELE: Small hydrocele. HERNIA OR EXTRA-TESTICULAR MASS: No. OTHER: No other significant finding. IMPRESSION: SMALL HYDROCELES. OTHERWISE UNREMARKABLE SCROTAL ULTRASOUND. NO EVIDENCE OF TESTICULAR MASS OR TORSION. TECHNICAL DOCUMENTATION: JOB ID: [id number] [employer]- All Rights Reserved Reading location - IP/workstation name: [email or web address]
[2019-01-25] MEDS ORDERED: PROCHLORPERAZINE EDISYLATE INJ 10 MG/2 ML VIAL IV ONE (13:11)
[2019-01-25] MEDS ORDERED: HYDROMORPHONE HCL INJ/PF 2 MG/ML AMPULE IV ONE ×2 (13:12→18:04)
[2019-01-25] MEDS ORDERED: NORMAL SALINE 1000 ML 1,000 ML IV PRN ×2 (13:12→14:39)
--- NOTE | 2019-01-25 13:16 | RADIOLOGY REPORT (SQ) ---
EXAM DESCRIPTION: CT ABD/PELVIS WITH IV ONLY COMPLETED DATE/TIME: 01/25/2019 12:58 pm REASON FOR STUDY: right flank/RLQ pain, radiates to right testicular COMPARISON: 10/19/2017 TECHNIQUE: CT scan of the abdomen and pelvis performed using helical scanning technique with dynamic intravenous contrast injection. No oral contrast. Images reviewed with lung, soft tissue, and bone windows. Reconstructed coronal and sagittal MPR images reviewed. Delayed images for evaluation of the urinary system also acquired. All images stored on PACS. All CT scanners at this facility use dose modulation, iterative reconstruction, and/or weight based d osing when appropriate to reduce radiation dose to as low as reasonably achievable (ALARA). [facility]: Dose Right [facility]: CareDose [facility]: Dose Right [facility]: Teradose 4D [facility]: [employer] CONTRAST TYPE AND DOSE: Contrast dose not reported. Please see written technologist documentation. RENAL FUNCTION: GFR > 60. RADIATION DOSE: CT Rad equipment meets quality standard of care and radiation dose reduction techniq ues were employed. CTDIvol: 19.8 - 20.8 mGy. DLP: 2357 mGy-cm.. LIMITATIONS: None. FINDINGS: LOWER CHEST: No significant findings. No nodules or infiltrates. LIVER: Normal size. No masses. No dilated ducts. SPLEEN: Normal size. No focal lesions. PANCREAS: No masses. No significant calcifications. No adjacent inflammation or peripancreatic fluid collections. Pancreatic duct not dilated. GALLBLADDER: No identified stones by CT criteria. No inflammatory changes to suggest cholecystitis. ADRENAL GLANDS: No significant masses or asymmetry. RIGHT KIDNEY AND URETER: No solid masses. There is an obstructive calculus at the right ureteropelvi c junction measuring 6 mm with mild associated right hydronephrosis. LEFT KIDNEY AND URETER: No solid masses. No significant calcifications. No hydronephrosis or hydr oureter. AORTA AND VESSELS: No aneurysm. No dissection. Renal arteries, SMA, celiac without stenosis. RETROPERITONEUM: No retroperitoneal adenopathy, hemorrhage or masses. BOWEL AND PERITONEAL CAVITY: No masses or inflammatory changes. No free fluid or peritoneal masses. APPENDIX: Surgically absent. PELVIS: No mass. No free fluid. Normal bladder. ABDOMINAL WALL: No masses. No hernias. BONES: No significant or acute findings. OTHER: No other significant finding. IMPRESSION: There is an obstructive calculus at the right ureteropelvic junction measuring 6 mm with mild associated right hydronephrosis. TECHNICAL DOCUMENTATION: JOB ID: [id number] Quality ID # [id number]: Final reports with documentation of one or more dose reduction techniques (e.g., Au tomated exposure control, adjustment of the mA and/or kV according to patient size, use of iterative reconstruction technique) 2010 [employer]- All Rights Reserved Reading location - IP/workstation name: [email or web address]
[2019-01-25 16:46] LABS: APPEARANCE,URINE CLOUDY; BILIRUBIN,URINE NEGATIVE (NEGATIVE); COLOR,URINE YELLOW; GLUCOSE, URINE NEGATIVE (NEGATIVE); KETONES,URINE NEGATIVE (NEGATIVE); LEUKOCYTE ESTERASE,URINE NEGATIVE (NEGATIVE); NITRITE,URINE NEGATIVE (NEGATIVE); PROTEIN,URINE NEGATIVE (NEGATIVE); URINE SPECIFIC GRAVITY 1.055; UROBILINOGEN,URINE NEGATIVE mg/dL (<2.0)
[2019-01-25 18:28] VITALS: BP 124/99
== END 2019-01-25 18:28 | disposition home or self-care (01) ==
LOC: ER 09:55
DX: N13.2 Hydronephrosis with renal and ureteral calculous obstruction (principal); R31.9 Hematuria, unspecified; N43.3 Hydrocele, unspecified; I25.10 Atherosclerotic heart disease of native coronary artery without angina pectoris; I10 Essential (primary) hypertension; E11.9 Type 2 diabetes mellitus without complications; Z95.5 Presence of coronary angioplasty implant and graft; Z95.0 Presence of cardiac pacemaker; Z88.5 Allergy status to narcotic agent; Z88.8 Allergy status to other drugs, medicaments and biological substances; Z91.018 Allergy to other foods
CPT/HCPCS: 96376; 99284; 96361; 96374; 96375; 36415; 83690; 85025; 80053; 81001; 76870; 93976; 74177; J3010; J1885; J1170; J0780; J2405; J7030

== ENCOUNTER → 2019-02-28 | Outpatient (CLI) | payer BC ==
[2019-02-28 08:45] LABS: APPEARANCE,URINE CLEAR; BILIRUBIN,URINE NEGATIVE (NEGATIVE); COLOR,URINE YELLOW; GLUCOSE, URINE NEGATIVE (NEGATIVE); KETONES,URINE NEGATIVE (NEGATIVE); LEUKOCYTE ESTERASE,URINE NEGATIVE (NEGATIVE); NITRITE,URINE NEGATIVE (NEGATIVE); PROTEIN,URINE NEGATIVE (NEGATIVE); URINE SPECIFIC GRAVITY 1.021; UROBILINOGEN,URINE NEGATIVE mg/dL (<2.0)
[2019-02-28 08:46] LABS: ABSOLUTE BASOPHILS # (AUTO) 0.1 10^3/uL (0.0-0.2); ABSOLUTE EOSINOPHILS # (AUTO) 0.1 10^3/uL (0.0-0.6); ABSOLUTE LYMPHOCYTES (AUTO) 1.8 10^3/uL (0.5-4.7); ABSOLUTE MONOCYTES (AUTO) 0.8 10^3/uL (0.1-1.4); ABSOLUTE NEUT (AUTO) 5.3 10^3/uL (1.7-8.2); BASOPHILS % (AUTO) 0.7 % (0-2); EOSINOPHILS % (AUTO) 1.6 % (0-6); HEMATOCRIT 40.4 % (37.9-51.0); HEMOGLOBIN 13.9 g/dL (13.5-17.0); LYMPHOCYTES % (AUTO) 22.7 % (13-45); MEAN CORPUSCULAR HEMOGLOBIN 31.6 pg (27.0-33.4); MEAN CORPUSCULAR HGB CONC 34.4 g/dL (32.0-36.0); MEAN CORPUSCULAR VOLUME 92 fl (80-97); MONOCYTES % (AUTO) 9.9 % (3-13); PLATELET COUNT 230 10^3/uL (150-450); RED CELL DISTRIBUTION WIDTH 13.9 % (11.5-14.0); SEGMENTED NEUTROPHILS % (AUTO) 65.1 % (42-78); TOTAL CELLS COUNTED % (AUTO) 100 %; WHITE BLOOD COUNT 8.1 10^3/uL (4.0-10.5)
[2019-02-28 09:12] LABS: ALANINE AMINOTRANSFERASE 25 U/L (21-72); ALBUMIN 4.3 g/dL (3.5-5.0); ALKALINE PHOSPHATASE 72 U/L (38-126); ANION GAP 12 (5-19); ASPARTATE AMINO TRANSFERASE 21 U/L (17-59); BILIRUBIN,DIRECT 0.3 mg/dL (0.0-0.4); BILIRUBIN,TOTAL 0.9 mg/dL (0.2-1.3); BLOOD UREA NITROGEN 22 mg/dL (7-20); CALCIUM 9.7 mg/dL (8.4-10.2); CARBON DIOXIDE 25 mmol/L (22-30); CHLORIDE 105 mmol/L (98-107); GLUCOSE 94 mg/dL (75-110); POTASSIUM 4.1 mmol/L (3.6-5.0); SODIUM 142.1 mmol/L (137-145); TOTAL PROTEIN 7.3 g/dL (6.3-8.2)
== END ==
LOC: LAB 08:05
PROVIDERS: ATTEND Internal Medicine Nephrology
DX: E11.22 Type 2 diabetes mellitus with diabetic chronic kidney disease (principal); I12.9 Hypertensive chronic kidney disease with stage 1 through stage 4 chronic kidney disease, or unspecified chronic kidney disease; N18.3 Chronic kidney disease, stage 3 (moderate)
CPT/HCPCS: 36415; 80053; 81001; 84550; 85025

== ENCOUNTER → 2019-03-25 | Outpatient (CLI) | payer BC ==
--- NOTE | 2019-03-25 08:29 | RADIOLOGY REPORT (SQ) ---
EXAM DESCRIPTION: U/S RETROPERITON (RENAL/AORTA) COMPLETED DATE/TIME: 03/25/2019 7:41 am REASON FOR STUDY: HTN (I10), UNSPEC HYDRONEPHROSIS (N13.30) N13.30 UNSPECIFIED HYDRONEPHROSIS COMPARISON: CT abdomen pelvis dated 01/25/2019 TECHNIQUE: Dynamic and static grayscale images acquired of the kidneys and bladder and recorded on P ACS. Additional selected color Doppler and spectral images recorded. LIMITATIONS: None. FINDINGS: RIGHT KIDNEY: The right kidney measures 10.3 cm in length. Normal echogenicity. No so lid or suspicious masses. No hydronephrosis. No calcifications. LEFT KIDNEY: The left kidney measures 11.3 cm in length. Normal echogenicity. No solid or suspic ious masses. No hydronephrosis or hydroureter. There is a parapelvic cyst. No calcifications. BLADDER: No masses. OTHER FINDINGS: No other significant finding. IMPRESSION: Normal renal bladder ultrasound. Small left parapelvic cyst. No stones or hydronephros is on current study. TECHNICAL DOCUMENTATION: JOB ID: [id number] [employer]- All Rights Reserved Reading location - IP/workstation name: [email or web address]
== END ==
LOC: RAD 07:18
PROVIDERS: ATTEND Internal Medicine Nephrology
DX: N13.30 Unspecified hydronephrosis (principal)
CPT/HCPCS: 76770

== ENCOUNTER → 2019-07-21 | Outpatient (CLI) | payer BC ==
[2019-07-21 16:43] LABS: ALBUMIN 4.6 g/dL (3.5-5.0); ALKALINE PHOSPHATASE 79 U/L (38-126); ANION GAP 10 (5-19); ASPARTATE AMINO TRANSFERASE 27 U/L (17-59); BILIRUBIN,DIRECT 0.2 mg/dL (0.0-0.4); BILIRUBIN,TOTAL 0.7 mg/dL (0.2-1.3); BLOOD UREA NITROGEN 22 mg/dL (7-20); CALCIUM 9.6 mg/dL (8.4-10.2); CARBON DIOXIDE 26 mmol/L (22-30); CHLORIDE 107 mmol/L (98-107); CHOLESTEROL 190.62 mg/dL (0-200); GLUCOSE 98 mg/dL (75-110); POTASSIUM 4.5 mmol/L (3.6-5.0); TOTAL PROTEIN 7.5 g/dL (6.3-8.2); TRIGLYCERIDES 79 mg/dL (<150)
[2019-07-21 16:54] LABS: DIRECT LDL 123 mg/dL (<100)
== END ==
LOC: LAB 15:52
PROVIDERS: ATTEND Nurse Practitioner
DX: E11.65 Type 2 diabetes mellitus with hyperglycemia (principal)
CPT/HCPCS: 36415; 80053; 80061; 83036

== ENCOUNTER → 2019-08-30 | Outpatient (CLI) | payer BC ==
[2019-08-30 07:59] LABS: ABSOLUTE BASOPHILS # (AUTO) 0.1 10^3/uL (0.0-0.2); ABSOLUTE EOSINOPHILS # (AUTO) 0.2 10^3/uL (0.0-0.6); ABSOLUTE LYMPHOCYTES (AUTO) 2.3 10^3/uL (0.5-4.7); ABSOLUTE MONOCYTES (AUTO) 0.9 10^3/uL (0.1-1.4); BASOPHILS % (AUTO) 0.7 % (0-2); EOSINOPHILS % (AUTO) 2.5 % (0-6); HEMATOCRIT 44.4 % (37.9-51.0); HEMOGLOBIN 15.5 g/dL (13.5-17.0); LYMPHOCYTES % (AUTO) 30.6 % (13-45); MEAN CORPUSCULAR HEMOGLOBIN 33.5 pg (27.0-33.4); MEAN CORPUSCULAR HGB CONC 34.8 g/dL (32.0-36.0); MEAN CORPUSCULAR VOLUME 96 fl (80-97); PLATELET COUNT 204 10^3/uL (150-450); RED BLOOD COUNT 4.61 10^6/uL (4.35-5.55); RED CELL DISTRIBUTION WIDTH 13.7 % (11.5-14.0); SEGMENTED NEUTROPHILS % (AUTO) 54.2 % (42-78); TOTAL CELLS COUNTED % (AUTO) 100 %; WHITE BLOOD COUNT 7.4 10^3/uL (4.0-10.5)
[2019-08-30 08:12] LABS: APPEARANCE,URINE CLEAR; BILIRUBIN,URINE NEGATIVE (NEGATIVE); COLOR,URINE YELLOW; GLUCOSE, URINE NEGATIVE (NEGATIVE); KETONES,URINE NEGATIVE (NEGATIVE); LEUKOCYTE ESTERASE,URINE NEGATIVE (NEGATIVE); NITRITE,URINE NEGATIVE (NEGATIVE); PROTEIN,URINE NEGATIVE (NEGATIVE); URINE SPECIFIC GRAVITY 1.017; UROBILINOGEN,URINE NEGATIVE mg/dL (<2.0)
[2019-08-30 08:23] LABS: ALBUMIN 4.6 g/dL (3.5-5.0); ALKALINE PHOSPHATASE 82 U/L (38-126); ANION GAP 9 (5-19); ASPARTATE AMINO TRANSFERASE 28 U/L (17-59); BILIRUBIN,DIRECT 0.2 mg/dL (0.0-0.4); BILIRUBIN,TOTAL 0.7 mg/dL (0.2-1.3); BLOOD UREA NITROGEN 23 mg/dL (7-20); CALCIUM 9.8 mg/dL (8.4-10.2); CARBON DIOXIDE 26 mmol/L (22-30); CHLORIDE 108 mmol/L (98-107); GLUCOSE 74 mg/dL (75-110); POTASSIUM 4.7 mmol/L (3.6-5.0); TOTAL PROTEIN 7.7 g/dL (6.3-8.2)
== END ==
LOC: LB 07:41
PROVIDERS: ATTEND Internal Medicine Nephrology
DX: I12.9 Hypertensive chronic kidney disease with stage 1 through stage 4 chronic kidney disease, or unspecified chronic kidney disease (principal); N18.3 Chronic kidney disease, stage 3 (moderate); E11.22 Type 2 diabetes mellitus with diabetic chronic kidney disease
CPT/HCPCS: 36415; 80053; 81001; 84550; 85025

== ENCOUNTER → 2019-09-24 | Outpatient (CLI) | payer BC ==
[2019-09-24 06:52] LABS: APPEARANCE,URINE CLEAR; BILIRUBIN,URINE NEGATIVE (NEGATIVE); COLOR,URINE YELLOW; GLUCOSE, URINE NEGATIVE (NEGATIVE); KETONES,URINE NEGATIVE (NEGATIVE); LEUKOCYTE ESTERASE,URINE NEGATIVE (NEGATIVE); NITRITE,URINE NEGATIVE (NEGATIVE); PROTEIN,URINE NEGATIVE (NEGATIVE); UROBILINOGEN,URINE NEGATIVE mg/dL (<2.0)
[2019-09-25 08:37] LABS: CREATININE URINE 107.8 mg/dL (Not Estab.); MICROALBUMIN URINE <3.0 ug/mL (Not Estab.)
== END ==
LOC: LAB 05:38
PROVIDERS: ATTEND Nurse Practitioner
DX: E11.9 Type 2 diabetes mellitus without complications (principal); E78.5 Hyperlipidemia, unspecified; E55.9 Vitamin D deficiency, unspecified; K21.9 Gastro-esophageal reflux disease without esophagitis
CPT/HCPCS: 36415; 81001; 82043; 82306; 82550; 82570; 83735

== ENCOUNTER 2020-02-09 02:07 | Emergency (ER) | payer OTHER, BC ==
[2020-02-09] MEDS ORDERED: DIPHENHYDRAMINE HCL 50 MG/ML VIAL IV ONE (02:32)
[2020-02-09] MEDS ORDERED: FAMOTIDINE INJ/PF 20 MG/2 ML SDV IV ONE (02:32)
[2020-02-09] MEDS ORDERED: METOPROLOL TARTRATE PF/INJ 5 MG/5 ML SDV IV ONE (02:32)
--- NOTE | 2020-02-09 02:36 | ER Document Report ---
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 Patient took his Benadryl both pill and liquid form and Proventil inhaler and then he began to have 3 out of 10 left-sided chest pain on and off for the last +1-hour. He now has a 1 out of 10 chest pain upon my exam at 0 230 patient reports he is severely allergic to Sudafed Nubain Stadol and tomatoes. Patient also takes lisinopril 10 and metoprolol 12.5 orally daily. He also took tonight 1000 mg of Excedrin and Zofran and Rolaids because of headache symptoms. Patient's blood pressure was 195/126 on my exam in the room. Patient reports she had stents placed in 2010 and in 1978 was intubated at [facility] after receiving Stadol TRAVEL OUTSIDE OF THE [place] IN LAST 30 DAYS: No - HPI Onset: Just prior to arrival - Related Data Allergies/Adverse Reactions: butorphanol tartrate [From Stadol] Allergy (Severe, Verified 01/25/19 09:57) Anaphylaxis pseudoephedrine HCl [From Sudafed] Allergy (Intermediate, Verified 01/25/19 09:57) Hives triprolidine HCl [From Actifed] Allergy (Intermediate, Verified 01/25/19 09:57) Hives nalbuphine HCl [From Nubain] Allergy (Unknown, Verified 01/25/19 09:57) Anaphylaxis TOMATO Allergy (Intermediate, Uncoded 01/25/19 09:57) Hives Past Medical History - General Information source: Patient - Social History Smoking Status: Former Smoker - Quit in 1985 Cigarette use (# per day): No Chew tobacco use (# tins/day): No Smoking Education Provided: No Frequency of alcohol use: None Drug Abuse: None Lives with: Family Family History: Reviewed & Not Pertinent, DM, Hypertension Patient has suicidal ideation: No Patient has homicidal ideation: No - Past Medical History Cardiac Medical History: Reports: Hx Coronary Artery Disease, Hx Hypercholesterolemia, Hx Hypertension - MEDICATED Denies: Hx Heart Attack Pulmonary Medical History: Denies: Hx Asthma, Hx Tuberculosis Neurological Medical History: Denies: Hx Cerebrovascular Accident, Hx Seizures Endocrine Medical History: Reports: Hx Diabetes Mellitus Type 2 Renal/ Medical History: Reports: Hx Kidney Stones. Denies: Hx Peritoneal Dialysis GI Medical History: Reports: Hx Gastroesophageal Reflux Disease, Hx Ulcer - YEARS AGO. Denies: Hx Hepatitis, Hx Hiatal Hernia Psychiatric Medical History: Reports: Hx Depression Infectious Medical History: Denies: Hx Hepatitis Past Surgical History: Reports: Hx Appendectomy, Hx Cardiac Catheterization - 1 stent, Hx Coronary Stent, Hx Orthopedic Surgery - shoulder, knee, elbow. Denies: Hx Open Heart Surgery, Hx Pacemaker - Immunizations Hx Diphtheria, Pertussis, Tetanus Vaccination: Yes Hx Pneumococcal Vaccination: 09/11/12 Review of Systems - Review of Systems Constitutional: See HPI, Weakness EENT: See HPI, Nose congestion Cardiovascular: See HPI, Chest pain Respiratory: No symptoms reported Gastrointestinal: No symptoms reported Genitourinary: No symptoms reported Male Genitourinary: No symptoms reported Musculoskeletal: No symptoms reported Skin: No symptoms reported Hematologic/Lymphatic: No symptoms reported Neurological/Psychological: No symptoms reported Physical Exam - Vital signs Vitals: Resp Pulse Ox 18 100 02/09/20 02:21 02/09/20 02:21 Interpretation: Hypertensive - General General appearance: Alert - HEENT Head: Normocephalic, Atraumatic Eyes: Normal Pupils: PERRL Ears: Normal Nasal: Normal Mucous membranes: Normal Pharynx: Normal Neck: Normal - Respiratory Respiratory status: No respiratory distress Chest status: Nontender Breath sounds: Normal Chest palpation: Normal - Cardiovascular Rhythm: Regular Heart sounds: Normal auscultation Murmur: No - Abdominal Inspection: Normal Distension: No distension Bowel sounds: Normal Tenderness: Nontender Organomegaly: No organomegaly - Genitourinary Scrotum: Other - deferred - Back Back: Normal - Extremities General upper extremity: Normal inspection General lower extremity: Edema - Bilateral lower extremities; patient reports this is typical for him - Neurological Neuro grossly intact: Yes Cognition: Normal Orientation: AAOx4 Dina Coma Scale Eye Opening: Spontaneous Dina Coma Scale Verbal: Oriented [place] Coma Scale Motor: Obeys Commands Dina Coma Scale Total: 15 Speech: Normal Motor strength normal: LUE, RUE, LLE, RLE Sensory: Normal - Psychological Associated symptoms: Normal affect - Skin Skin Temperature: Warm Course - Vital Signs Vital signs: Temp Pulse Resp BP Pulse Ox 97.5 F 17 151/86 H 98 02/09/20 03:01 02/09/20 04:01 02/09/20 04:01 02/09/20 04:01 - Laboratory Result Diagrams: 02/09/20 02:57 02/09/20 02:57 Laboratory results interpreted by me: 02/09/20 02/09/20 02:57 03:57 Creatine Kinase 186 H Urine Ascorbic Acid 20 H - Diagnostic Test Radiology reviewed: Reports reviewed - EKG Interpretation by Me EKG shows normal: Sinus rhythm Rate: Normal Rhythm: NSR Critical Care Note - Critical Care Note Total time excluding time spent on procedures (mins): 90 Comments: I advised patient of his lab and x-ray findings Discharge - Discharge Clinical Impression: Chest pain at rest Allergic rhinitis Qualifiers: Allergic rhinitis trigger: unspecified Allergic rhinitis seasonality: unspecified Qualified Code(s): J30.9 - Allergic rhinitis, unspecified HTN (hypertension) Qualifiers: Hypertension type: unspecified Qualified Code(s): I10 - Essential (primary) hypertension Clinical Impression: (Ruled Out): CAD (coronary artery disease) Condition: Good Disposition: HOME, SELF-CARE Additional Instructions: Follow-up with your bail bondsman and personal doctor today return to ER as needed take medicines as directed and avoid odors if possible that cause similar symptoms. Referrals: GIBSON AGUILAR MD [Primary Care Provider] - Follow up as needed
[2020-02-09 03:09] LABS: ABSOLUTE BASOPHILS # (AUTO) 0.1 10^3/uL (0.0-0.2); ABSOLUTE EOSINOPHILS # (AUTO) 0.1 10^3/uL (0.0-0.6); ABSOLUTE LYMPHOCYTES (AUTO) 2.5 10^3/uL (0.5-4.7); ABSOLUTE MONOCYTES (AUTO) 0.8 10^3/uL (0.1-1.4); ABSOLUTE NEUT (AUTO) 4.9 10^3/uL (1.7-8.2); BASOPHILS % (AUTO) 0.6 % (0-2); EOSINOPHILS % (AUTO) 1.3 % (0-6); HEMATOCRIT 40.8 % (37.9-51.0); HEMOGLOBIN 14.1 g/dL (13.5-17.0); MEAN CORPUSCULAR HEMOGLOBIN 32.2 pg (27.0-33.4); MEAN CORPUSCULAR HGB CONC 34.5 g/dL (32.0-36.0); MEAN CORPUSCULAR VOLUME 93 fl (80-97); MONOCYTES % (AUTO) 9.9 % (3-13); PLATELET COUNT 219 10^3/uL (150-450); RED BLOOD COUNT 4.37 10^6/uL (4.35-5.55); RED CELL DISTRIBUTION WIDTH 13.9 % (11.5-14.0); SEGMENTED NEUTROPHILS % (AUTO) 58.2 % (42-78); TOTAL CELLS COUNTED % (AUTO) 100 %; WHITE BLOOD COUNT 8.3 10^3/uL (4.0-10.5)
--- NOTE | 2020-02-09 03:13 | RADIOLOGY REPORT (SQ) ---
EXAM DESCRIPTION: XR CHEST 1 VIEW COMPLETED DATE/TME: 02/09/2020 02:31 CLINICAL HISTORY: 65 years, Male, cp COMPARISON: 05/23/2016 chest NUMBER OF VIEWS: 1 TECHNIQUE: Portable chest LIMITATIONS: None. FINDINGS: The heart size is normal. Osteopenia. The lungs are clear. There is no pneumothorax. Postsurgical change right shoulder IMPRESSION: No acute cardiopulmonary process copyright 2010 [employer]- All Rights Reserved
[2020-02-09 03:17] LABS: INTERNATIONAL RATION (INR) 1.02; PROTHROMBIN TIME 13.4 SEC (11.4-15.4)
[2020-02-09 03:23] LABS: ALBUMIN 4.1 g/dL (3.5-5.0); ALKALINE PHOSPHATASE 77 U/L (38-126); ANION GAP 6 (5-19); ASPARTATE AMINO TRANSFERASE 30 U/L (17-59); BILIRUBIN,TOTAL 0.5 mg/dL (0.2-1.3); BLOOD UREA NITROGEN 20 mg/dL (7-20); CALCIUM 10.1 mg/dL (8.4-10.2); CARBON DIOXIDE 29 mmol/L (22-30); CHLORIDE 107 mmol/L (98-107); CREATINE KINASE 186 U/L (55-170); GLUCOSE 90 mg/dL (75-110); POTASSIUM 4.2 mmol/L (3.6-5.0); TOTAL PROTEIN 6.8 g/dL (6.3-8.2)
[2020-02-09 04:20] LABS: APPEARANCE,URINE CLEAR; BILIRUBIN,URINE NEGATIVE (NEGATIVE); COLOR,URINE YELLOW; GLUCOSE, URINE NEGATIVE (NEGATIVE); KETONES,URINE NEGATIVE (NEGATIVE); LEUKOCYTE ESTERASE,URINE NEGATIVE (NEGATIVE); NITRITE,URINE NEGATIVE (NEGATIVE); PROTEIN,URINE NEGATIVE (NEGATIVE); URINE SPECIFIC GRAVITY 1.023; UROBILINOGEN,URINE NEGATIVE mg/dL (<2.0)
[2020-02-09 07:06] VITALS: BP 137/80
--- NOTE | 2020-02-09 18:24 | EKG REPORT ---
SEVERITY:- NORMAL ECG - SINUS RHYTHM : Confirmed by: Zahida Deluca MD 09-Feb-2020 18:24:26
== END 2020-02-09 07:18 | disposition home or self-care (01) ==
LOC: ER 02:07
DX: J30.9 Allergic rhinitis, unspecified (principal); R07.9 Chest pain, unspecified; I10 Essential (primary) hypertension; Z79.899 Other long term (current) drug therapy; Z88.8 Allergy status to other drugs, medicaments and biological substances; Z87.891 Personal history of nicotine dependence; I25.10 Atherosclerotic heart disease of native coronary artery without angina pectoris; E11.9 Type 2 diabetes mellitus without complications
CPT/HCPCS: 99291; 99292; 96374; 96375; 36415; 82550; 85025; 85610; 80053; 81001; 84484; 71045; 93005; 93010; J1200; J3490; S0028

== ENCOUNTER → 2020-04-05 | Outpatient (CLI) | payer BC ==
--- NOTE | 2020-04-05 09:16 | RADIOLOGY REPORT (SQ) ---
EXAM DESCRIPTION: CT HEAD WITHOUT IMAGES COMPLETED DATE/TIME: 04/05/2020 7:42 am REASON FOR STUDY: HEADACHE (R51) R51 HEADACHE M79.662 PAIN IN LEFT LOWER LEG COMPARISON: 02/14/2014 TECHNIQUE: Axial images acquired through the brain without intravenous contrast. Images reviewed wi th bone, brain and subdural windows. Additional sagittal and coronal reconstructions were generated. Images stored on PACS. All CT scanners at this facility use dose modulation, iterative reconstruction, and/or weight based d osing when appropriate to reduce radiation dose to as low as reasonably achievable (ALARA). [facility]: Dose Right [facility]: CareDose [facility]: Dose Right [facility]: Teradose 4D [facility]: [employer] RADIATION DOSE: CT Rad equipment meets quality standard of care and radiation dose reduction techniq ues were employed. CTDIvol: 48.6 mGy. DLP: 954 mGy-cm. mGy. LIMITATIONS: None. FINDINGS: VENTRICLES: Prominent. CEREBRUM: No masses. No hemorrhage. No midline shift. Areas of low density in the white matter mos t likely due to chronic micro-vascular ischemic change. No evidence for acute infarction. CEREBELLUM: No masses. No hemorrhage. No alteration of density. No evidence for acute infarction. EXTRAAXIAL SPACES: Mild age-related involutional change. No fluid collections. No masses. ORBITS AND GLOBE: No intra- or extraconal masses. Normal contour of globe without masses. CALVARIUM: No fracture. PARANASAL SINUSES: No fluid or mucosal thickening. SOFT TISSUES: No mass or hematoma. OTHER: No other significant finding. IMPRESSION: MILD CHRONIC CHANGES OF ATROPHY AND MICROVASCULAR ISCHEMIA. NO ACUTE PROCESS. EVIDENCE OF ACUTE STROKE: NO. TECHNICAL DOCUMENTATION: JOB ID: [id number] Quality ID # [id number]: Final reports with documentation of one or more dose reduction techniques (e.g., Au tomated exposure control, adjustment of the mA and/or kV according to patient size, use of iterative reconstruction technique) 2010 [employer]- All Rights Reserved Reading location - IP/workstation name: [email or web address]
--- NOTE | 2020-04-05 13:53 | RADIOLOGY REPORT (SQ) ---
EXAM DESCRIPTION: VENOUS UNILATERAL LOWER IMAGES COMPLETED DATE/TIME: 04/05/2020 8:54 am REASON FOR STUDY: LLE PAIN R51 HEADACHE M79.662 PAIN IN LEFT LOWER LEG COMPARISON: 04/22/2014 TECHNIQUE: Dynamic and static hamlin scale and color images acquired of the left leg venous system. Se lected spectral images acquired with additional compression and augmentation maneuvers. The contralat eral common femoral vein and saphenofemoral junction were also imaged. Images stored on PACS. LIMITATIONS: None. FINDINGS: COMMON FEMORAL: Normal phasicity, compression and augmentation. No visualized echogenic ma terial on hamlin scale. No defects on color images. FEMORAL: Normal compression and augmentation. No visualized echogenic material on hamlin scale. No defe cts on color images. POPLITEAL: Normal compression, augmentation. No visualized echogenic material on hamlin scale. No defec ts on color images. CALF VESSELS: Normal compression, augmentation. No visualized echogenic material on hamlin scale. No de fects on color images. GSV and SSV: Normal compression, augmentation. No visualized echogenic material on hamlin scale. No def ects on color images. ANY DEEP VENOUS INSUFFICIENCY: Not evaluated. ANY EVIDENCE OF POPLITEAL CYST: No. OTHER: No other significant finding. CONTRALATERAL COMMON FEMORAL VEIN AND SAPHENOFEMORAL JUNCTION: Normal phasicity, compression and augmentation. No visualized echogenic material on hamlin scale. No de fects on color images. IMPRESSION: NO EVIDENCE OF DVT OR SVT IN THE LEFT LEG. TECHNICAL DOCUMENTATION: JOB ID: [id number] 2010 [employer]- All Rights Reserved Reading location - IP/workstation name: [email or web address]
== END ==
LOC: RAD 07:20
PROVIDERS: ATTEND Nurse Practitioner
DX: M79.662 Pain in left lower leg (principal); R51 Headache
CPT/HCPCS: 70450; 93971

== ENCOUNTER → 2020-07-17 | Outpatient (CLI) | payer BC ==
[2020-07-17 09:18] LABS: CREATINE KINASE 173 U/L (55-170)
[2020-07-17 09:29] LABS: DIRECT LDL 72 mg/dL (<100)
--- NOTE | 2020-07-17 14:12 | RADIOLOGY REPORT (SQ) ---
EXAM DESCRIPTION: C SP 3 VWS OR LESS IMAGES COMPLETED DATE/TIME: 07/17/2020 8:54 am REASON FOR STUDY: CERVICALGIA E78.5 HYPERLIPIDEMIA, UNSPECIFIED M54.2 CERVICALGIA COMPARISON: None. NUMBER OF VIEWS: Three views. TECHNIQUE: AP, lateral and odontoid radiographic images acquired of the cervical spine. LIMITATIONS: None. FINDINGS: MINERALIZATION: Normal. ALIGNMENT: Anatomic. VERTEBRAE: Vertebral bodies of normal height. DISCS: Mild multilevel disc space narrowing. No large osteophytes. HARDWARE: None in the spine. SOFT TISSUES: No masses or calcifications. Lung apices clear. OTHER: No other significant finding. IMPRESSION: NO SIGNIFICANT RADIOGRAPHIC FINDING IN THE CERVICAL SPINE. TECHNICAL DOCUMENTATION: JOB ID: [id number] [place]-72 2010 [employer]- All Rights Reserved Reading location - IP/workstation name: [email or web address]
--- NOTE | 2020-07-17 14:13 | RADIOLOGY REPORT (SQ) ---
EXAM DESCRIPTION: T SPINE AP/LAT IMAGES COMPLETED DATE/TIME: 07/17/2020 8:54 am REASON FOR STUDY: THORACALGIA/RADICULOPATHY E78.5 HYPERLIPIDEMIA, UNSPECIFIED M54.2 CERVICALGIA COMPARISON: None. NUMBER OF VIEWS: Two views. TECHNIQUE: AP and lateral radiographic images acquired of the thoracic spine. LIMITATIONS: None. FINDINGS: MINERALIZATION: Normal. ALIGNMENT: Normal. No scoliosis. VERTEBRAE: No fracture or bone lesion. Maintained height, normal segmentation. DISCS: Multilevel disc space narrowing with osteophytes. HARDWARE: None in the spine. MEDIASTINUM AND SOFT TISSUES: Normal heart size and aortic contour. No soft tissue abnormality. VISUALIZED LUNG BARBOUR: Clear. OTHER: No other significant finding. IMPRESSION: SPONDYLOSIS WITHOUT BONE LESION OR FRACTURE. TECHNICAL DOCUMENTATION: JOB ID: [id number] [place]-72 2010 [employer]- All Rights Reserved Reading location - IP/workstation name: [email or web address]
[2020-07-19 11:36] LABS: ABSOLUTE EOSINOPHILS # (AUTO) 0.1 10^3/uL (0.0-0.6); ABSOLUTE LYMPHOCYTES (AUTO) 2.2 10^3/uL (0.5-4.7); ABSOLUTE MONOCYTES (AUTO) 0.7 10^3/uL (0.1-1.4); ABSOLUTE NEUT (AUTO) 2.5 10^3/uL (1.7-8.2); BASOPHILS % (AUTO) 0.7 % (0-2); EOSINOPHILS % (AUTO) 2.1 % (0-6); HEMATOCRIT 41.7 % (37.9-51.0); HEMOGLOBIN 14.5 g/dL (13.5-17.0); LYMPHOCYTES % (AUTO) 39.9 % (13-45); MEAN CORPUSCULAR HEMOGLOBIN 32.4 pg (27.0-33.4); MEAN CORPUSCULAR HGB CONC 34.7 g/dL (32.0-36.0); MEAN CORPUSCULAR VOLUME 93 fl (80-97); MONOCYTES % (AUTO) 13.3 % (3-13); PLATELET COUNT 194 10^3/uL (150-450); RED BLOOD COUNT 4.47 10^6/uL (4.35-5.55); TOTAL CELLS COUNTED % (AUTO) 100 %; WHITE BLOOD COUNT 5.6 10^3/uL (4.0-10.5)
[2020-07-19 12:00] LABS: ALBUMIN 4.5 g/dL (3.5-5.0); ALKALINE PHOSPHATASE 106 U/L (38-126); ANION GAP 11 (5-19); ASPARTATE AMINO TRANSFERASE 32 U/L (17-59); BILIRUBIN,DIRECT 0.3 mg/dL (0.0-0.4); BILIRUBIN,TOTAL 0.5 mg/dL (0.2-1.3); BLOOD UREA NITROGEN 29 mg/dL (7-20); CALCIUM 9.6 mg/dL (8.4-10.2); CARBON DIOXIDE 27 mmol/L (22-30); CHLORIDE 104 mmol/L (98-107); GLUCOSE 90 mg/dL (75-110); POTASSIUM 4.6 mmol/L (3.6-5.0); TOTAL PROTEIN 7.2 g/dL (6.3-8.2)
== END ==
LOC: OD 08:12
PROVIDERS: ATTEND Pediatrics
DX: R51.9 Headache, unspecified (principal); M47.24 Other spondylosis with radiculopathy, thoracic region; R53.1 Weakness; H55.00 Unspecified nystagmus; E78.5 Hyperlipidemia, unspecified
CPT/HCPCS: 36415; 72040; 72070; 80053; 82550; 83721; 84443; 85025

== ENCOUNTER → 2020-07-24 | Outpatient (CLI) | payer BC ==
--- NOTE | 2020-07-24 12:53 | RADIOLOGY REPORT (SQ) ---
EXAM DESCRIPTION: SHOULDER LEFT 2 OR MORE VIEWS IMAGES COMPLETED DATE/TIME: 07/24/2020 12:08 pm REASON FOR STUDY: PAIN IN LEFT SHOULDER R20.2 PARESTHESIA OF SKIN M25.512 PAIN IN LEFT SHOULDER COMPARISON: None. NUMBER OF VIEWS: Three view. TECHNIQUE: Internal rotation, external rotation, and Y view images acquired of the left shoulder. LIMITATIONS: None. FINDINGS: MINERALIZATION: Normal. BONES: No acute fracture. No worrisome bone lesions. No significant osteophytes. GLENOHUMERAL JOINT: No significant findings. ACROMIOCLAVICULAR JOINT: No large osteophytes. SOFT TISSUES: No calcifications. VISUALIZED RIBS, SPINE, AND LUNG: No other significant finding. OTHER: No other significant finding. IMPRESSION: NEGATIVE STUDY OF THE LEFT SHOULDER. NO EXPLANATION FOR PAIN. TECHNICAL DOCUMENTATION: JOB ID: [id number] 2010 [employer]- All Rights Reserved Reading location - IP/workstation name: [email or web address]
== END ==
LOC: OD 11:36
PROVIDERS: ATTEND Nurse Practitioner
DX: M25.512 Pain in left shoulder (principal); R20.2 Paresthesia of skin

== ENCOUNTER → 2020-08-01 | Outpatient (CLI) | payer BC | LOC: OD 08:35 | PROVIDERS: ATTEND Nurse Practitioner | DX: Z53.29 Procedure and treatment not carried out because of patient's decision for other reasons (principal) ==

== ENCOUNTER → 2020-08-04 | Outpatient (CLI) | payer BC ==
[2020-08-04 10:19] LABS: ABSOLUTE EOSINOPHILS # (AUTO) 0.1 10^3/uL (0.0-0.6); ABSOLUTE LYMPHOCYTES (AUTO) 1.5 10^3/uL (0.5-4.7); ABSOLUTE MONOCYTES (AUTO) 0.6 10^3/uL (0.1-1.4); ABSOLUTE NEUT (AUTO) 4.1 10^3/uL (1.7-8.2); BASOPHILS % (AUTO) 0.6 % (0-2); EOSINOPHILS % (AUTO) 1.7 % (0-6); HEMATOCRIT 39.1 % (37.9-51.0); HEMOGLOBIN 13.4 g/dL (13.5-17.0); LYMPHOCYTES % (AUTO) 23.4 % (13-45); MEAN CORPUSCULAR HGB CONC 34.3 g/dL (32.0-36.0); MEAN CORPUSCULAR VOLUME 94 fl (80-97); MONOCYTES % (AUTO) 9.8 % (3-13); PLATELET COUNT 230 10^3/uL (150-450); RED BLOOD COUNT 4.19 10^6/uL (4.35-5.55); RED CELL DISTRIBUTION WIDTH 13.9 % (11.5-14.0); SEGMENTED NEUTROPHILS % (AUTO) 64.5 % (42-78); TOTAL CELLS COUNTED % (AUTO) 100 %; WHITE BLOOD COUNT 6.3 10^3/uL (4.0-10.5)
[2020-08-04 10:52] LABS: URIC ACID 3.4 mg/dL (3.5-8.5)
[2020-08-04 10:55] LABS: C-REACTIVE PROTEIN < 5.0 mg/L (<10.0)
[2020-08-04 11:04] LABS: ERYTHROCYTE SEDIMENTATION RATE 13 mm/hr (0-20)
== END ==
LOC: OD 09:23
PROVIDERS: ATTEND Nurse Practitioner
DX: M25.512 Pain in left shoulder (principal); E55.9 Vitamin D deficiency, unspecified; K21.9 Gastro-esophageal reflux disease without esophagitis
CPT/HCPCS: 36415; 82306; 83735; 84550; 85025; 85652; 86038; 86060; 86140; 86431

== ENCOUNTER → 2020-08-22 | Outpatient (CLI) | payer BC ==
--- NOTE | 2020-08-22 12:42 | RADIOLOGY REPORT (SQ) ---
EXAM DESCRIPTION: MRI LT UPPER JOINT WITHOUT IMAGES COMPLETED DATE/TIME: 08/22/2020 8:30 am REASON FOR STUDY: M75.122 COMPLETE ROTATR-CUFF TEAR/RUPTR OF LEFT SHOULDER, NOT TRAUMA M75.122 COMP LETE ROTATR-CUFF TEAR/RUPTR OF LEFT SHOULDER, NO COMPARISON: None. TECHNIQUE: Left shoulder images acquired and stored on PACS. Multiplanar imaging to include fat sens itive sequences such as T1, water sensitive sequences such as FST2/STIR, cartilage sensitive sequence s such as FSPD/gradient-echo sequences. LIMITATIONS: Motion artifact. Claustrophobia. Unable to complete all sequences. FINDINGS: BONE MARROW AND CORTEX: Subchondral cyst formation humeral head. JOINT OR BURSAL EFFUSION: No significant joint or bursal fluid. No suggestion of loose bodies. GLENO-HUMERAL ARTICULATION: Intact. ACROMION AND AC JOINT: Type 2 acromion. Moderate AC joint arthropathy. ROTATOR CUFF AND INTERVAL: Diffuse tendinosis. Partial-thickness intrasubstance tears of the posteri or supraspinatus/ anterior infraspinatus. No full-thickness tear. No rotator interval tear. No rotator interval thickening to suggest adhesive capsulitis. LABRUM AND BICEPS LABRAL COMPLEX: Intact as visualized. REMAINDER OF LABRUM AND IGHL : Intact as visualized. PERIARTICULAR AND ADJACENT SOFT TISSUES: No masses or abnormal nodes. OTHER: No other significant finding. IMPRESSION: Technical limitations. Partial-thickness intrasubstance tears of the posterior supraspi natus and anterior infraspinatus. AC joint arthropathy. TECHNICAL DOCUMENTATION: JOB ID: [id number] 2010 [employer]- All Rights Reserved Reading location - IP/workstation name: [email or web address]
--- OUTSIDE RECORDS SUMMARY | 2020-08-23 18:00 | XMS REPORT ---
:1955 [facility] [address] [place] [address] Care Team Providers Name Role Phone Amadeo PEPE Attending Clinician Unavailable Tiffanie JAMES Attending Clinician Unavailable Allergies, Adverse Reactions, Alerts Allergy Name Allergy Status Severity Reaction(s) Onset Inactive Treat ing Comments Type Date Date Clinician PSEUDOEPHEDRI Drug Active U Rash 2016- NE HCL allergy - 00:00: 00 Actifed Allergy to Active Hives substance Nubain Allergy to Active Anaphylaxis substance Stadol Allergy to Active Anaphylaxis substance Sudafed Allergy to Active Rash substance Tomato Allergy to Active Hives substance Medications Ordered Filled Start Stop Current Ordering Indication Dosage Frequency Signature Comments Components Medication Medication Date Date Medication? Clinician (SIG) Name Name Aspir-Marly No 1 Q1D Aspir-Marly 325 mg 325 mg tablet,lacey tablet,del yed release ayed Take 1 release tablet Take 1 every day tablet by oral every day route. by oral route. Carafate 1 No 1 Q1D Carafate 1 gram tablet gram Take 1 tablet tablet Take 1 every day tablet by oral every day route. by oral route. Dexilant 60 No 1capsul Q1D Dexilant mg capsule, e(s) 60 mg delayed capsule, release delayed Take 1 release capsule Take 1 every day capsule by oral every day route for by oral 56 days. route for 56 days. gabapentin No 1capsul TID gabapentin 100 mg e(s) 100 mg capsule capsule Take 1 Take 1 capsule 3 capsule 3 times a day times a by oral day by route. oral route. Lasix 20 mg No Lasix 20 tablet Take mg tablet one tab Take one , tab , , , Thursday. Thursday. Take 1/2 Take 1/2 tab Thursday, tab Thursday, Thursday, Thursday, Thursday, Thursday, Thursday Lipitor 80 No 1 Q1D Lipitor 80 mg tablet mg tablet Take 1 Take 1 tablet tablet every day every day by oral by oral route. route. lisinopril No 1 Q1D lisinopril 20 mg 20 mg tablet Take tablet 1 tablet Take 1 every day tablet by oral every day route. by oral route. metoprolol No 1 Q1D metoprolol succinate succinate ER 25 mg ER 25 mg tablet,exte tablet,ext nded ended release 24 release 24 hr Take 1 hr Take 1 tablet tablet every day every day by oral by oral route. route. nifedipine No 1capsul TID nifedipine 10 mg e(s) 10 mg capsule capsule Take 1 Take 1 capsule 3 capsule 3 times a day times a by oral day by route. oral route. Plavix 75 No 1 Q1D Plavix 75 mg tablet mg tablet Take 1 Take 1 tablet tablet every day every day by oral by oral route. route. Ranexa 500 No 1 Q1D Ranexa 500 mg mg tablet,exte tablet,ext nded ended release release Take 1 Take 1 tablet tablet every day every day by oral by oral route. route. Robaxin 500 No 2 TID Robaxin mg tablet 500 mg Take 2 tablet tablets 3 Take 2 times a day tablets 3 by oral times a route. day by oral route. tizanidine No 1 TID tizanidine 4 mg tablet 4 mg Take 1 tablet tablet 3 Take 1 times a day tablet 3 by oral times a route as day by needed. oral route as needed. Trulicity No Trulicity 1.5 mg/0.5 1.5 mg/0.5 mL mL subcutaneou subcutaneo s pen us pen injector injector INJECT 0.5 INJECT 0.5 MILLILITER MILLILITER (1.5 MG) BY (1.5 MG) SUBCUTANEOU BY S ROUTE SUBCUTANEO ONCE WEEKLY US ROUTE IN THE ONCE ABDOMEN, WEEKLY IN THIGH, OR THE UPPER ARM ABDOMEN, ROTATING THIGH, OR INJECTION UPPER ARM SITES ROTATING INJECTION SITES Uloric 40 No 1 Q1D Uloric 40 mg tablet mg tablet Take 1 Take 1 tablet tablet every day every day by oral by oral route. route. Vitamin D2 No 1capsul Q1D Vitamin D2 1,250 mcg e(s) 1,250 mcg (50,000 (50,000 unit) unit) capsule capsule Take 1 Take 1 capsule capsule every day every day by oral by oral route. route. Zofran 4 mg No 2 BID Zofran 4 tablet Take mg tablet 2 tablets Take 2 twice a day tablets by oral twice a route. day by oral route. Problems Condition Condition Condition Status Onset Resolution Last Treatin g Comments Name Details Category Date Date Treatment Clinician Date Pain of Pain of Problem Active 2019-10 left Left 1-03 shoulder Shoulder 00:00: joint Joint 00 Degeneratio Degeneratio Problem Active 2016-10 n of n of 2-06 thoracic Thoracic 00:00: interverteb Interverteb 00 ral disc ral Disc Thoracic Thoracic Problem Active 2016-10 back pain Back Pain 2- 00:00: 00 Burst Burst Problem Active 2016-10 fracture of Fracture of 0-19 vertebra Vertebra 00:00: 00 Hypercholes Hypercholes Problem Active terolemia terolemia Gout Gout Problem Active Nuclear Nuclear Problem Active sclerosis Sclerosis Hypertensiv Hypertensiv Problem Active e disorder e Disorder 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 Kidney Kidney Problem Active disease Disease Osteoarthri Osteoarthri Problem Active tis of knee tis of Knee Knee pain Knee Pain Problem Active Lower back Lower Back Problem Active injury Injury Diabetes Diabetes Problem Active mellitus Mellitus Procedures Procedure Date / Time Performed Performing Clinician Devic e RADIOLOGIC EXAM SHOULDER 2 VIEWS 2020-08-17 00:00:00 MRI, shoulder, w/o contrast 2020-08-17 00:00:00 OFFICE/OUTPATIENT VISIT, EST 2017-05-12 09:00:00 ROUTINE VENIPUNCTURE 2017-05-12 09:00:00 ASSAY OF BLOOD/URIC ACID 2017-05-12 09:00:00 OFFICE/OUTPATIENT VISIT, EST 2017-03-19 08:30:00 OFFICE/OUTPATIENT VISIT, EST 2017-01-28 10:00:00 GLYCOSYLATED HEMOGLOBIN TEST 2017-01-28 10:00:00 ROUTINE VENIPUNCTURE 2017-01-28 10:00:00 COMPREHEN METABOLIC PANEL 2017-01-28 10:00:00 URINALYSIS, AUTO, W/O SCOPE 2016-05-22 08:45:00 GLYCOSYLATED HEMOGLOBIN TEST 2016-05-22 08:45:00 OFFICE/OUTPATIENT VISIT, EST 2016-05-22 08:45:00 ROUTINE VENIPUNCTURE 2016-05-22 08:45:00 COMPREHEN METABOLIC PANEL 2016-05-22 08:45:00 ASSAY OF CK (CPK) 2016-01-15 08:45:00 ROUTINE VENIPUNCTURE 2016-01-15 08:45:00 ASSAY OF VITAMIN D 2016-01-15 08:45:00 Transitional Care Mgmt - W/in 7 2016-01-15 08:45:00 Days Of Discharge COMPREHEN METABOLIC PANEL 2016-01-15 08:45:00 ASSAY OF BLOOD LIPOPROTEIN 2016-01-15 08:45:00 RHEUMATOID FACTOR TEST 2015-07-24 12:30:00 OFFICE/OUTPATIENT VISIT, EST 2015-07-24 12:30:00 COMPLETE CBC W/AUTO DIFF WBC 2015-07-24 12:30:00 COMPREHEN METABOLIC PANEL 2015-07-24 12:30:00 ROUTINE VENIPUNCTURE 2015-07-24 12:30:00 RBC SED RATE, NONAUTOMATED 2015-07-24 12:30:00 APPLICATION OF PASTE BOOT 2015-07-04 08:30:00 OFFICE/OUTPATIENT VISIT, EST 2015-07-04 08:30:00 OFFICE/OUTPATIENT VISIT, EST 2015-06-27 08:15:00 GLYCOSYLATED HEMOGLOBIN TEST 2015-06-15 10:30:00 OFFICE/OUTPATIENT VISIT, EST 2015-06-15 10:30:00 ASSAY OF VITAMIN D 2015-06-15 10:30:00 GLUCOSE BLOOD TEST 2015-06-15 10:30:00 LIPID PANEL 2015-06-15 10:30:00 ROUTINE VENIPUNCTURE 2015-06-15 10:30:00 COMPREHEN METABOLIC PANEL 2015-06-15 10:30:00 ASSAY OF VITAMIN D 2015-02-16 08:30:00 ROUTINE VENIPUNCTURE 2015-02-16 08:30:00 ASSAY OF MAGNESIUM 2015-02-16 08:30:00 ASSAY OF CK (CPK) 2015-02-16 08:30:00 ASSAY OF SERUM POTASSIUM 2015-02-16 08:30:00 OFFICE/OUTPATIENT VISIT, EST 2014-12-11 08:30:00 ROUTINE VENIPUNCTURE 2014-09-27 13:30:00 ASSAY ALKALINE PHOSPHATASE 2014-09-27 13:30:00 COMPREHEN METABOLIC PANEL 2014-09-11 09:00:00 ASSAY OF BLOOD/URIC ACID 2014-09-11 09:00:00 GLYCOSYLATED HEMOGLOBIN TEST 2014-09-11 09:00:00 ASSAY OF PSA, TOTAL 2014-09-11 09:00:00 ROUTINE VENIPUNCTURE 2014-09-11 09:00:00 URINALYSIS, AUTO, W/O SCOPE 2014-09-11 09:00:00 OFFICE/OUTPATIENT VISIT, EST 2014-09-11 09:00:00 LIPID PANEL 2014-09-11 09:00:00 ASSAY OF VITAMIN D 2014-09-11 09:00:00 ASSAY OF CK (CPK) 2014-09-11 09:00:00 OFFICE/OUTPATIENT VISIT, EST 2014-08-24 12:30:00 OFFICE/OUTPATIENT VISIT, EST 2014-08-09 08:00:00 URINALYSIS, AUTO W/SCOPE 2014-07-24 11:00:00 ROUTINE VENIPUNCTURE 2014-07-24 11:00:00 ASSAY OF MAGNESIUM 2014-07-24 11:00:00 COMPLETE CBC, AUTOMATED 2014-07-24 11:00:00 BASIC METABOLIC PANEL 2014-07-24 11:00:00 ROUTINE VENIPUNCTURE 2014-06-09 09:15:00 OFFICE/OUTPATIENT VISIT, EST 2014-06-01 13:45:00 ROUTINE VENIPUNCTURE 2014-06-01 13:45:00 COMPREHEN METABOLIC PANEL 2014-06-01 13:45:00 ASSAY TEST FOR BLOOD, FECAL 2014-06-01 13:45:00 ASSAY OF SERUM POTASSIUM 2014-05-11 11:28:00 ROUTINE VENIPUNCTURE 2014-05-11 11:28:00 COMPLETE CBC, AUTOMATED 2014-05-11 11:28:00 BASIC METABOLIC PANEL 2014-05-10 10:45:00 APPLICATION OF PASTE BOOT 2014-05-10 10:45:00 OFFICE/OUTPATIENT VISIT, EST 2014-05-10 10:45:00 COMPLETE CBC W/AUTO DIFF WBC 2014-05-10 10:45:00 ROUTINE VENIPUNCTURE 2014-05-10 10:45:00 COMPREHEN METABOLIC PANEL 2014-02-07 09:00:00 OFFICE/OUTPATIENT VISIT, EST 2014-02-07 09:00:00 ROUTINE VENIPUNCTURE 2014-02-07 09:00:00 Colonoscopy 2011-10-12 00:00:00 Cardiac Surgery 2011-05-23 00:00:00 Hernia Repair 1986-10-12 00:00:00 Knee Surgery 1980-10-12 00:00:00 Shoulder Surgery 1979-10-12 00:00:00 Carpal Tunnel Surgery 1973-10-12 00:00:00 Elbow Surgery 1972-10-12 00:00:00 Carpal Tunnel Surgery 1971-10-12 00:00:00 Appendectomy 1963-10-12 00:00:00 Results Test Description Test Time Test Comments Text Results Atomic Results Result Comments LYTES PLUS 2017-05-26 09:20:00 Test Item Value Reference Range Comments K (test code = K) 4.4 MMOL/L 3.5-5.1 BUN (test code = BUN) 28 MG/DL 7-18 EGFRAA (test code = EGFRAA) 65.66 >60.00 CR (test code = CR) 1.4 MG/DL 0.4-1.3 ION GAP (test code = ION GAP) 15 4-16 CA (test code = CA) 9.1 MG/DL 8.5-10.1 EGFR (test code = EGFR) 54.18 >60.00 BUN/CREAT RATIO (test code = BUN/CREAT RATIO) 20 10 -14 CO2 (test code = CO2) 25.1 MMOL/L 21.0-32.0 CL (test code = CL) 104 MMOL/L 98-110 NA (test code = NA) 140 MMOL/L 135-145 GLU (test code = GLU) 160 MG/DL 70-110 25 OH VITAMIN D [id number] 09:43:00 Test Item Value Reference Range Comments VIT D (test code = VIT D) 41 NG/ML 30-100 DIRECT [id number] 09:43:00 Test Item Value Reference Range Comments DLDL (test code = DLDL) 72 MG/DL 100-130 URIC [id number] 09:43:00 Test Item Value Reference Range Comments URIC (test code = URIC) 3.6 MG/DL 2.6-7.2 [id number] 09:43:00 Test Item Value Reference Range Comments HA1C (test code = HA1C) 6.7 % 4.8-6.0 [id number] 09:43:00 Test Item Value Reference Range Comments MAG (test code = MAG) 2.3 MG/DL 1.8-2.4 CHEM [id number] 09:43:00 Test Item Value Reference Range Comments BILT (test code = BILT) 0.4 MG/DL 0.1-1.0 K (test code = K) 5.4 MMOL/L 3.5-5.1 CO2 (test code = CO2) 26.8 MMOL/L 21.0-32.0 BUN/CREAT RATIO (test code = BUN/CREAT RATIO) 13 10 -14 ALK PHOS (test code = ALK PHOS) 114 U/L 50-136 EGFRAA (test code = EGFRAA) 65.67 >60.00 TP (test code = TP) 7.6 G/DL 6.9-8.5 CR (test code = CR) 1.4 MG/DL 0.4-1.3 ALT (test code = ALT) 51 U/L 9-61 ION GAP (test code = ION GAP) 16 4-16 CA (test code = CA) 9.3 MG/DL 8.5-10.1 EGFR (test code = EGFR) 54.18 >60.00 CL (test code = CL) 110 MMOL/L 98-110 NA (test code = NA) 147 MMOL/L 135-145 GLU (test code = GLU) 134 MG/DL 70-110 ALB (test code = ALB) 4.1 G/DL 3.2-4.7 AST (test code = AST) 35 U/L 9-37 BUN (test code = BUN) 18 MG/DL 7-18 GLOB (test code = GLOB) 3.5 1.9-4.5 [id number] 09:43:00 Test Item Value Reference Range Comments CHOL (test code = CHOL) 133 MG/DL 140-200 CHEM [id number] 13:39:00 Test Item Value Reference Range Comments ALT (test code = ALT) 55 U/L 9-61 BILT (test code = BILT) 0.5 MG/DL 0.1-1.0 ION GAP (test code = ION GAP) 13 4-16 GLOB (test code = GLOB) 3.4 1.9-4.5 GLU (test code = GLU) 106 MG/DL 70-110 ALB (test code = ALB) 4.0 G/DL 3.2-4.7 K (test code = K) 4.9 MMOL/L 3.5-5.1 ALK PHOS (test code = ALK PHOS) 113 U/L 50-136 CA (test code = CA) 8.9 MG/DL 8.5-10.1 TP (test code = TP) 7.4 G/DL 6.9-8.5 EGFR (test code = EGFR) 59.04 >60.00 EGFRAA (test code = EGFRAA) 71.55 >60.00 AST (test code = AST) 33 U/L 9-37 CR (test code = CR) 1.3 MG/DL 0.4-1.3 CO2 (test code = CO2) 26.9 MMOL/L 21.0-32.0 NA (test code = NA) 144 MMOL/L 135-145 BUN/CREAT RATIO (test code = BUN/CREAT RATIO) 13 10 -14 BUN (test code = BUN) 17 MG/DL 7-18 CL (test code = CL) 109 MMOL/L 98-110 CHEM [id number] 09:19:00 Test Item Value Reference Range Comments AST (test code = AST) 32 U/L 9-37 BUN (test code = BUN) 20 MG/DL 7-18 EGFR (test code = EGFR) 54.20 >60.00 GLU (test code = GLU) 181 MG/DL 70-110 K (test code = K) 4.7 MMOL/L 3.5-5.1 ALK PHOS (test code = ALK PHOS) 144 U/L 50-136 EGFRAA (test code = EGFRAA) 65.69 >60.00 BILT (test code = BILT) 0.3 MG/DL 0.1-1.0 CO2 (test code = CO2) 26.0 MMOL/L 21.0-32.0 NA (test code = NA) 142 MMOL/L 135-145 GLOB (test code = GLOB) 3.3 1.9-4.5 BUN/CREAT RATIO (test code = BUN/CREAT RATIO) 14 10 -14 ALT (test code = ALT) 51 U/L 9-61 TP (test code = TP) 7.0 G/DL 6.9-8.5 CR (test code = CR) 1.4 MG/DL 0.4-1.3 CA (test code = CA) 9.3 MG/DL 8.5-10.1 ALB (test code = ALB) 3.7 G/DL 3.2-4.7 ION GAP (test code = ION GAP) 15 4-16 CL (test code = CL) 106 MMOL/L 98-110 Gamma Glutamyl [id number] 11:54:00 Test Item Value Reference Range Comments GGT (test code = 232108) 48 IU/L 0-65 LIVER [id number] 11:54:00 Test Item Value Reference Range Comments ALT (test code = ALT) 95 U/L 9-61 BILD (test code = BILD) 0.2 MG/DL 0.0-0.2 BILT (test code = BILT) 0.7 MG/DL 0.1-1.0 ALB (test code = ALB) 3.7 G/DL 3.2-4.7 TP (test code = TP) 7.1 G/DL 6.9-8.5 AST (test code = AST) 52 U/L 9-37 ALK PHOS (test code = ALK PHOS) 124 U/L 50-136 25 OH VITAMIN D [id number] 11:13:00 Test Item Value Reference Range Comments VIT D (test code = VIT D) 26 NG/ML 30-100 TOTAL [id number] 11:13:00 Test Item Value Reference Range Comments TT3 (test code = TT3) 1.05 NG/ML 0.70-1.70 LIPID [id number] 11:13:00 Test Item Value Reference Range Comments CHD (test code = CHD) 24.88 HDL (test code = HDL) 50 MG/DL 32-96 TGL (test code = TGL) 58 MG/DL 30-200 CHOL (test code = CHOL) 201 MG/DL 140-200 DLDL (test code = DLDL) 141 MG/DL 100-130 [id number] 11:13:00 Test Item Value Reference Range Comments TSH (test code = TSH) 1.87 UIU/ML 0.50-5.80 [id number] 11:13:00 Test Item Value Reference Range Comments HA1C (test code = HA1C) 8.0 % 4.8-6.0 FREE [id number] 11:13:00 Test Item Value Reference Range Comments FT4 (test code = FT4) 1.00 NG/DL 0.75-1.54 CK [id number] 11:13:00 Test Item Value Reference Range Comments CKT (test code = CKT) 191 U/L 39-308 CHEM [id number] 11:13:00 Test Item Value Reference Range Comments CO2 (test code = CO2) 23.9 MMOL/L 21.0-32.0 EGFRAA (test code = EGFRAA) 96.91 >60.00 CA (test code = CA) 9.1 MG/DL 8.5-10.1 GLOB (test code = GLOB) 3.5 1.9-4.5 ALK PHOS (test code = ALK PHOS) 102 U/L 50-136 ALT (test code = ALT) 90 U/L 9-61 CR (test code = CR) 1.0 MG/DL 0.4-1.3 K (test code = K) 4.8 MMOL/L 3.5-5.1 AST (test code = AST) 49 U/L 9-37 ALB (test code = ALB) 4.0 G/DL 3.2-4.7 BUN/CREAT RATIO (test code = BUN/CREAT RATIO) 22 10 -14 TP (test code = TP) 7.5 G/DL 6.9-8.5 CL (test code = CL) 107 MMOL/L 98-110 BUN (test code = BUN) 22 MG/DL 7-18 NA (test code = NA) 143 MMOL/L 135-145 BILT (test code = BILT) 0.4 MG/DL 0.1-1.0 GLU (test code = GLU) 129 MG/DL 70-110 EGFR (test code = EGFR) 79.96 >60.00 ION GAP (test code = ION GAP) 17 4-16 FLU A & [id number] 09:13:00 Test Item Value Reference Range Comments FLU AB (test code = FLU AB) Negative A&B\X0D0A\ Negative STREP (RAPID SCREEN)2016-11-25 09:13:00 Test Item Value Reference Range Comments RSS (test code = RSS) POSITIVE NEGATIVE TESTOSTERONE, [id number] 16:00:00 Test Item Value Reference Range Comments TEST (test code = TEST) 237.4 NG/DL 199.0-1586.0 PSA [id number] 09:14:00 Test Item Value Reference Range Comments PSA (test code = PSA) 0.4 NG/ML 0.0-4.0 URINALYSIS([id number])2016-05-22 09:14:00 Test Item Value Reference Range Comments UKET (test code = UKET) Negative Negative CLAR (test code = CLAR) Clear Clear COLOR (test code = COLOR) Yellow Yellow BRANDON (test code = BRANDON) Negative Negative UBIL (test code = UBIL) Negative MG/DL Negative TPU (test code = TPU) Negative Negative UUROBIL (test code = UUROBIL) 0.2 E.U./dL 0.2, 1.0 PH (test code = PH) 5.5 SPGR (test code = SPGR) 1.025 1.010-1.030 NIT (test code = NIT) Negative Negative UGLU (test code = UGLU) Negative Negative UBLD (test code = UBLD) Negative Negative CHEM [id number] 09:14:00 Test Item Value Reference Range Comments CL (test code = CL) 104 MMOL/L 98-110 ION GAP (test code = ION GAP) 12 4-16 ALT (test code = ALT) 57 U/L 9-61 GLU (test code = GLU) 138 MG/DL 70-110 K (test code = K) 4.3 MMOL/L 3.5-5.1 ALB (test code = ALB) 4.0 G/DL 3.2-4.7 BUN (test code = BUN) 21 MG/DL 7-18 EGFR (test code = EGFR) 80.14 >60.00 CO2 (test code = CO2) 28.8 MMOL/L 21.0-32.0 NA (test code = NA) 140 MMOL/L 135-145 ALK PHOS (test code = ALK PHOS) 106 U/L 50-136 BILT (test code = BILT) 0.5 MG/DL 0.1-1.0 GLOB (test code = GLOB) 3.1 1.9-4.5 CR (test code = CR) 1.0 MG/DL 0.4-1.3 TP (test code = TP) 7.1 G/DL 6.9-8.5 BUN/CREAT RATIO (test code = BUN/CREAT RATIO) 21 10 -14 CA (test code = CA) 9.2 MG/DL 8.5-10.1 EGFRAA (test code = EGFRAA) 97.13 >60.00 AST (test code = AST) 35 U/L 9-37 URIC [id number] 09:14:00 Test Item Value Reference Range Comments URIC (test code = URIC) 7.0 MG/DL 2.6-7.2 25 OH VITAMIN D [id number] 09:14:00 Test Item Value Reference Range Comments VIT D (test code = VIT D) 29 L NG/ML 30-100 [id number] 09:14:00 Test Item Value Reference Range Comments HA1C (test code = HA1C) 7.3 % 4.8-6.0 DIRECT [id number] 09:14:00 Test Item Value Reference Range Comments DLDL (test code = DLDL) 151 MG/DL 100-130 [id number] 09:14:00 Test Item Value Reference Range Comments MAG (test code = MAG) 2.2 MG/DL 1.8-2.4 [id number] 09:14:00 Test Item Value Reference Range Comments TSH (test code = TSH) 2.38 UIU/ML 0.50-5.80 DIRECT [id number] 09:49:00 Test Item Value Reference Range Comments DLDL (test code = DLDL) 96 MG/DL 100-130 CK [id number] 09:49:00 Test Item Value Reference Range Comments CKT (test code = CKT) 103 U/L 39-308 25 OH VITAMIN D [id number] 09:49:00 Test Item Value Reference Range Comments VIT D (test code = VIT D) 26 L NG/ML 30-100 [id number] [id number] 09:49:00 Test Item Value Reference Range Comments ION GAP (test code = ION GAP) 12 4-16 CR (test code = CR) 1.0 MG/DL 0.4-1.3 BILT (test code = BILT) 0.3 MG/DL 0.1-1.0 K (test code = K) 4.3 MMOL/L 3.5-5.1 GLU (test code = GLU) 163 MG/DL 70-110 EGFRAA (test code = EGFRAA) 97.23 >60.00 CA (test code = CA) 9.0 MG/DL 8.5-10.1 ALT (test code = ALT) 64 U/L 9-61 EGFR (test code = EGFR) 80.23 >60.00 TP (test code = TP) 6.9 G/DL 6.9-8.5 GLOB (test code = GLOB) 3.3 1.9-4.5 BUN/CREAT RATIO (test code = BUN/CREAT RATIO) 15 10 -14 ALB (test code = ALB) 3.6 G/DL 3.2-4.7 NA (test code = NA) 141 MMOL/L 135-145 AST (test code = AST) 25 U/L 9-37 CL (test code = CL) 107 MMOL/L 98-110 CO2 (test code = CO2) 26.0 MMOL/L 21.0-32.0 BUN (test code = BUN) 15 MG/DL 7-18 ALK PHOS (test code = ALK PHOS) 108 U/L 50-136 Uric A+ESTEVAN+RA Qn+CRP+[id number] 12:48:00 Test Item Value Reference Range Comments ESTEVAN Direct (test code = 179795) Negative Negative Antistreptolysin O Ab (test code = 672227) 135.8 IU/mL 0.0-2 00.0 C-Reactive Protein, Quant (test code = 197506) 1.3 mg/L 0 .0-4.9 Uric Acid, Serum (test code = 242677) 6.8 mg/dL 3.7-8.6 ESTEVAN Direct (test code = 7227078) Negative Negative RA Latex Turbid. (test code = 606888) 10.2 IU/mL 0.0-13.9 ESTEVAN Direct (test code = 14858346) Negative Negative CHEM 12:48:00 Test Item Value Reference Range Comments K (test code = K) 4.9 MMOL/L 3.5-5.1 GLOB (test code = GLOB) 3.4 1.9-4.5 ION GAP (test code = ION GAP) 12 4-16 ALT (test code = ALT) 47 U/L 9-61 ALB (test code = ALB) 3.5 G/DL 3.2-4.7 NA (test code = NA) 144 MMOL/L 135-145 AST (test code = AST) 24 U/L 9-37 EGFR (test code = EGFR) 65.11 >60.00 GLU (test code = GLU) 160 MG/DL 70-110 TP (test code = TP) 6.9 G/DL 6.9-8.5 CA (test code = CA) 9.1 MG/DL 8.5-10.1 CL (test code = CL) 108 MMOL/L 98-110 BILT (test code = BILT) 0.3 MG/DL 0.1-1.0 EGFRAA (test code = EGFRAA) 78.91 >60.00 CO2 (test code = CO2) 28.7 MMOL/L 21.0-32.0 ALK PHOS (test code = ALK PHOS) 110 U/L 50-136 BUN (test code = BUN) 17 MG/DL 7-18 CR (test code = CR) 1.2 MG/DL 0.4-1.3 BUN/CREAT RATIO (test code = BUN/CREAT RATIO) 14 10 -14 CBC W/DIFF [id number] 12:48:00 Test Item Value Reference Range Comments MCV (test code = MCV) 90 FL 79-95 BA# (test code = BA#) 0.0 K/uL 0.0-0.1 MPV (test code = MPV) 8.8 FL 7.5-10.7 LY# (test code = LY#) 2.1 # 1.1-2.7 MO% (test code = MO%) 9.7 % 4.6-12.4 EO# (test code = EO#) 0.1 K/uL 0.0-0.5 MCHC (test code = MCHC) 31.9 L G/DL 33.5-35.5 HCT (test code = HCT) 43.0 % 37.7-46.5 HGB (test code = HGB) 13.7 G/DL 12.9-16.1 MCH (test code = MCH) 28.7 PQ 26.8-33.2 PLT (test code = PLT) 220 K/UL 165-353 EO% (test code = EO%) 2.4 % 0.0-7.8 LY% (test code = LY%) 35.2 % 16.8-43.5 RDW (test code = RDW) 19.5 H % 12.0-15.1 NE% (test code = NE%) 52.2 % 43.3-71.9 RBC (test code = RBC) 4.77 CU/MM 4.27-5.49 MO# (test code = MO#) 0.6 # 0.3-0.8 WBC (test code = WBC) 6.0 K/UL 3.6-11.1 NE# (test code = NE#) 3.2 # 1.9-7.2 BA% (test code = BA%) 0.5 % 0.0-1.1 ESR (1090)2015-07-24 12:48:00 Test Item Value Reference Range Comments ESR (test code = ESR) 11 MM/HR 0-10 MRSA Screening [id number] 09:16:00 Test Item Value Reference Range Comments MRSA Screening Culture (test code = 249218) Negative LIPID [id number] 11:46:00 Test Item Value Reference Range Comments CHOL (test code = CHOL) 190 MG/DL 140-200 HDL (test code = HDL) 44 MG/DL 32-96 DLDL (test code = DLDL) 123 MG/DL 100-130 TGL (test code = TGL) 121 MG/DL 30-200 CHD (test code = CHD) 23.16 [id number] 11:46:00 Test Item Value Reference Range Comments HA1C (test code = HA1C) 7.2 % 4.8-6.0 CHEM [id number] 11:46:00 Test Item Value Reference Range Comments GLOB (test code = GLOB) 3.4 1.9-4.5 CO2 (test code = CO2) 26.6 MMOL/L 21.0-32.0 BUN (test code = BUN) 20 MG/DL 7-18 K (test code = K) 4.8 MMOL/L 3.5-5.1 AST (test code = AST) 21 U/L 9-37 GLU (test code = GLU) 132 MG/DL 70-110 BUN/CREAT RATIO (test code = BUN/CREAT RATIO) 20 10 -14 CL (test code = CL) 110 MMOL/L 98-110 BILT (test code = BILT) 0.4 MG/DL 0.1-1.0 ALB (test code = ALB) 3.8 G/DL 3.2-4.7 TP (test code = TP) 7.2 G/DL 6.9-8.5 ION GAP (test code = ION GAP) 15 4-16 CR (test code = CR) 1.0 MG/DL 0.4-1.3 EGFR (test code = EGFR) 80.38 >60.00 ALK PHOS (test code = ALK PHOS) 102 U/L 50-136 EGFRAA (test code = EGFRAA) 97.42 >60.00 NA (test code = NA) 147 MMOL/L 135-145 ALT (test code = ALT) 32 U/L 9-61 CA (test code = CA) 9.0 MG/DL 8.5-10.1 [id number] 11:46:00 Test Item Value Reference Range Comments GLU-G (test code = GLU-G) 120 70.00-115.00 25 OH VITAMIN D [id number] 11:46:00 Test Item Value Reference Range Comments VIT D (test code = VIT D) 33 N NG/ML 30-100 25 OH VITAMIN D [id number] 08:05:00 Test Item Value Reference Range Comments VIT D (test code = VIT D) 23 L NG/ML 30-100 CK [id number] 08:05:00 Test Item Value Reference Range Comments CKT (test code = CKT) 123 U/L 39-308 [id number] 08:05:00 Test Item Value Reference Range Comments MAG (test code = MAG) 2.1 MG/DL 1.8-2.4 [id number] 08:05:00 Test Item Value Reference Range Comments K (test code = K) 4.3 MMOL/L 3.5-5.1 ALK [id number] 13:51:00 Test Item Value Reference Range Comments ALK PHOS (test code = ALK PHOS) 102 U/L 50-136 CHEM [id number] 09:04:00 Test Item Value Reference Range Comments CA (test code = CA) 9.1 MG/DL 8.5-10.1 CR (test code = CR) 1.1 MG/DL 0.4-1.3 CL (test code = CL) 107 MMOL/L 98-110 AST (test code = AST) 24 U/L 9-37 BILT (test code = BILT) 0.4 MG/DL 0.1-1.0 EGFR (test code = EGFR) 72.19 >60.00 NA (test code = NA) 143 MMOL/L 135-145 TP (test code = TP) 7.2 G/DL 6.9-8.5 BUN/CREAT RATIO (test code = BUN/CREAT RATIO) 18 10 -14 GLOB (test code = GLOB) 3.6 1.9-4.5 ALK PHOS (test code = ALK PHOS) 169 U/L 50-136 CO2 (test code = CO2) 27.5 MMOL/L 21.0-32.0 K (test code = K) 4.3 MMOL/L 3.5-5.1 GLU (test code = GLU) 208 MG/DL 70-110 BUN (test code = BUN) 20 MG/DL 7-18 EGFRAA (test code = EGFRAA) 87.49 >60.00 ALB (test code = ALB) 3.6 G/DL 3.2-4.7 ION GAP (test code = ION GAP) 13 4-16 ALT (test code = ALT) 33 U/L 9-61 CK [id number] 09:04:00 Test Item Value Reference Range Comments CKT (test code = CKT) 103 U/L 39-308 LIPID [id number] 09:04:00 Test Item Value Reference Range Comments DLDL (test code = DLDL) 58 MG/DL 100-130 CHOL (test code = CHOL) 112 MG/DL 140-200 CHD (test code = CHD) 45.54 TGL (test code = TGL) 112 MG/DL 30-200 HDL (test code = HDL) 51 MG/DL 32-96 25 OH VITAMIN D [id number] 09:04:00 Test Item Value Reference Range Comments VIT D (test code = VIT D) 32 N NG/ML 30-100 [id number] 09:04:00 Test Item Value Reference Range Comments HA1C (test code = HA1C) 6.8 % 4.8-6.0 URINALYSIS([id number])2014-09-11 09:04:00 Test Item Value Reference Range Comments NIT (test code = NIT) Negative Negative PH (test code = PH) 5.0 COLOR (test code = COLOR) Yellow Yellow UBIL (test code = UBIL) Negative MG/DL Negative CLAR (test code = CLAR) Clear Clear UGLU (test code = UGLU) Negative Negative BRANDON (test code = BRANDON) Negative Negative UKET (test code = UKET) Negative Negative UUROBIL (test code = UUROBIL) 0.2 E.U./dL 0.2, 1.0 UBLD (test code = UBLD) Negative Negative SPGR (test code = SPGR) 1.025 1.010-1.030 TPU (test code = TPU) Negative Negative PSA [id number] 09:04:00 Test Item Value Reference Range Comments PSA (test code = PSA) 0.4 NG/ML 0.0-4.0 URIC [id number] 09:04:00 Test Item Value Reference Range Comments URIC (test code = URIC) 4.6 MG/DL 2.6-7.2 [id number] 11:10:00 Test Item Value Reference Range Comments MAG (test code = MAG) 2.2 MG/DL 1.8-2.4 LYTES [id number] 11:10:00 Test Item Value Reference Range Comments BUN (test code = BUN) 13 MG/DL 7-18 BUN/CREAT RATIO (test code = BUN/CREAT RATIO) 13 10 -14 CO2 (test code = CO2) 25.1 MMOL/L 21.0-32.0 CL (test code = CL) 108 MMOL/L 98-110 CA (test code = CA) 8.8 MG/DL 8.5-10.1 GLU (test code = GLU) 141 MG/DL 70-110 ION GAP (test code = ION GAP) 16 4-16 NA (test code = NA) 145 MMOL/L 135-145 K (test code = K) 4.4 MMOL/L 3.5-5.1 CR (test code = CR) 1.0 MG/DL 0.4-1.3 [id number] 11:10:00 Test Item Value Reference Range Comments MCV (test code = MCV) 93 FL 79-95 WBC (test code = WBC) 5.3 K/UL 3.6-11.1 MCHC (test code = MCHC) 33.5 G/DL 33.5-35.5 RBC (test code = RBC) 4.11 L CU/MM 4.27-5.49 HGB (test code = HGB) 12.7 L G/DL 12.9-16.1 PLT (test code = PLT) 219 K/UL 165-353 MCH (test code = MCH) 31.0 PQ 26.8-33.2 HCT (test code = HCT) 38.1 % 37.7-46.5 RDW (test code = RDW) 15.4 H % 12.0-15.1 [id number] 11:10:00 Test Item Value Reference Range Comments UCR (test code = UCR) 348.3 MG/DL 30.0-125.0 UALB (test code = UALB) 16.9 MG/L 1.3-20.0 UALB/UCR RATIO (test code = UALB/UCR RATIO) 5 MG/DL URINALYSIS([id number])2014-07-24 11:10:00 Test Item Value Reference Range Comments SPGR (test code = SPGR) 1.020 1.010-1.030 NIT (test code = NIT) Negative Negative CLAR (test code = CLAR) Clear Clear UGLU (test code = UGLU) Negative Negative PH (test code = PH) 7.0 UBLD (test code = UBLD) 3+ Negative UKET (test code = UKET) Trace Negative BRANDON (test code = BRANDON) Negative Negative UUROBIL (test code = UUROBIL) 1.0 E.U./dL 0.2, 1.0 COLOR (test code = COLOR) Yellow Yellow TPU (test code = TPU) Negative Negative UBIL (test code = UBIL) 1+ MG/DL Negative CBC, Platelet; No [id number] 09:56:00 Test Item Value Reference Range Comments Sendouts (test code = Sendouts) Sent to [facility] Sendouts (test code = Sendouts6) Sent to [facility] [id number] [id number] 14:35:00 Test Item Value Reference Range Comments CL (test code = CL) 104 MMOL/L 98-110 TP (test code = TP) 7.8 G/DL 6.9-8.5 ALT (test code = ALT) 18 U/L 9-61 EGFRAA (test code = EGFRAA) 56.83 >60.00 BUN/CREAT RATIO (test code = BUN/CREAT RATIO) 14 10 -14 ION GAP (test code = ION GAP) 14 4-16 CA (test code = CA) 8.9 MG/DL 8.5-10.1 BILT (test code = BILT) 0.6 MG/DL 0.1-1.0 EGFR (test code = EGFR) 46.89 >60.00 GLU (test code = GLU) 134 MG/DL 70-110 K (test code = K) 4.1 MMOL/L 3.5-5.1 AST (test code = AST) 29 U/L 9-37 CO2 (test code = CO2) 26.2 MMOL/L 21.0-32.0 ALK PHOS (test code = ALK PHOS) 128 U/L 50-136 ALB (test code = ALB) 4.1 G/DL 3.2-4.7 GLOB (test code = GLOB) 3.7 1.9-4.5 BUN (test code = BUN) 23 MG/DL 7-18 NA (test code = NA) 140 MMOL/L 135-145 CR (test code = CR) 1.6 MG/DL 0.4-1.3 OCCULT BLOOD AUTO [id number] 14:35:00 Test Item Value Reference Range Comments OCBS (test code = OCBS) Positive Negative [id number] 14:39:00 Test Item Value Reference Range Comments HGB (test code = HGB) 12.4 L G/DL 12.9-16.1 WBC (test code = WBC) 11.1 K/UL 3.6-11.1 MCHC (test code = MCHC) 32.7 G/DL 33.5-35.5 MCH (test code = MCH) 30.8 PQ 26.8-33.2 RDW (test code = RDW) 15.4 H % 12.0-15.1 PLT (test code = PLT) 470 H K/UL 165-353 HCT (test code = HCT) 38.0 % 37.7-46.5 MCV (test code = MCV) 94 FL 79-95 RBC (test code = RBC) 4.04 L CU/MM 4.27-5.49 [id number] 14:39:00 Test Item Value Reference Range Comments K (test code = K) 4.7 MMOL/L 3.5-5.1 CBC W/DIFF 11:12:00 Test Item Value Reference Range Comments HGB (test code = HGB) 12.9 L G/DL 12.9-16.1 MCHC (test code = MCHC) 32.5 G/DL 33.5-35.5 RBC (test code = RBC) 4.17 L CU/MM 4.27-5.49 MO% (test code = MO%) 8.5 % 4.6-12.4 LY# (test code = LY#) 3.0 H # 1.1-2.7 MPV (test code = MPV) 7.9 FL 7.5-10.7 PLT (test code = PLT) 595 H K/UL 165-353 BA% (test code = BA%) 0.5 % 0.0-1.1 EO% (test code = EO%) 1.9 % 0.0-7.8 NE# (test code = NE#) 6.9 # 1.9-7.2 NE% (test code = NE%) 61.8 % 43.3-71.9 MO# (test code = MO#) 0.9 H # 0.3-0.8 MCV (test code = MCV) 95 H FL 79-95 RDW (test code = RDW) 15.7 H % 12.0-15.1 HCT (test code = HCT) 39.7 % 37.7-46.5 EO# (test code = EO#) 0.2 K/uL 0.0-0.5 LY% (test code = LY%) 27.3 % 16.8-43.5 MCH (test code = MCH) 30.8 PQ 26.8-33.2 WBC (test code = WBC) 11.1 H K/UL 3.6-11.1 BA# (test code = BA#) 0.1 K/uL 0.0-0.1 LYTES [id number] 11:12:00 Test Item Value Reference Range Comments BUN/CREAT RATIO (test code = BUN/CREAT RATIO) 18 10 -14 GLU (test code = GLU) 116 MG/DL 70-110 CL (test code = CL) 105 MMOL/L 98-110 NA (test code = NA) 140 MMOL/L 135-145 K (test code = K) 5.2 MMOL/L 3.5-5.1 BUN (test code = BUN) 23 MG/DL 7-18 CR (test code = CR) 1.3 MG/DL 0.4-1.3 CA (test code = CA) 9.6 MG/DL 8.5-10.1 ION GAP (test code = ION GAP) 9 4-16 CO2 (test code = CO2) 30.8 MMOL/L 21.0-32.0 CHEM [id number] 10:00:00 Test Item Value Reference Range Comments EGFR (test code = EGFR) 65.42 >60.00 BUN/CREAT RATIO (test code = BUN/CREAT RATIO) 12 10 -14 CR (test code = CR) 1.2 MG/DL 0.4-1.3 K (test code = K) 4.3 MMOL/L 3.5-5.1 ALK PHOS (test code = ALK PHOS) 151 U/L 50-136 AST (test code = AST) 42 U/L 9-37 ALB (test code = ALB) 3.8 G/DL 3.2-4.7 GLOB (test code = GLOB) 4.5 1.9-4.5 EGFRAA (test code = EGFRAA) 79.29 >60.00 TP (test code = TP) 8.3 G/DL 6.9-8.5 CA (test code = CA) 9.6 MG/DL 8.5-10.1 BUN (test code = BUN) 14 MG/DL 7-18 ION GAP (test code = ION GAP) 13 4-16 CO2 (test code = CO2) 26.9 MMOL/L 21.0-32.0 BILT (test code = BILT) 0.5 MG/DL 0.1-1.0 GLU (test code = GLU) 170 MG/DL 70-110 CL (test code = CL) 104 MMOL/L 98-110 NA (test code = NA) 140 MMOL/L 135-145 ALT (test code = ALT) 67 U/L 9-61 Assessments Condition Name Status Diagnosis Date Treating Clinici an Full thickness rotator cuff tear Active 2020-08-17 09:3 8:15 Pain of left shoulder joint Active 2020-08-17 08:54:55 Cellulitis of left lower limb Active Type 2 diabetes mellitus without Active complications Essential (primary) hypertension Active Hyperlipidemia, unspecified Active Cellulitis of right lower limb Active Type 2 diabetes mellitus without Active complications Vitamin D deficiency, unspecified Active Abnormal results of liver function Active studies Type 2 diabetes mellitus without Active complications Hyperlipidemia, unspecified Active Idiopathic gout, multiple sites Active Essential (primary) hypertension Active Type 2 diabetes mellitus without Active complications Essential (primary) hypertension Active Hyperlipidemia, unspecified Active 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 Essential (primary) hypertension Active Syncope and collapse Active Dehydration Active Type 2 diabetes mellitus with Active unspecified complications Pain in right hip Active Abscess/Cellulitis - Leg (Except Foot) Active Abscess/Cellulitis - Leg (Except Foot) Active Pain - Knee/Lower Leg Active Diabetes Mellitus - Type II Active (Controlled) Deficiency - Vitamin D Active Hyperlipidemia (Unspecified) Active Hypertension - Benign (Essential) Active Onychomycosis Active Deficiency - Vitamin D Active Cramp - Limb Active Diabetes Mellitus - Type II Active (Controlled) Hypertension - Benign (Essential) Active Hyperlipidemia (Unspecified) Active Bronchitis - Unspecified Active Abnormal - Clinical Findings Active Diabetes Mellitus - Type II Active (Controlled) Long-Term Use - Other Medications Active (Current) Screening - Ca (Prostate) Active Hyperlipidemia (Unspecified) Active Deficiency - Vitamin D Active Hypertension - Benign (Essential) Active Pain - Limb Active Congestion - Nasal Active Pain - Limb Active Failure - Renal (Chronic)(Unspecified) Active Abnormal - Clinical Findings Active Abnormal - Liver Function Study Active Diabetes - Type II (Unspecified Active Complication) Screening - Ca (Colon) Active Pain - Limb Active Abnormal - Clinical Findings Active Abscess/Cellulitis - Leg (Except Foot) Active Pneumonia - Organism Unspecified Active Insufficiency - Renal Active Diabetes Mellitus - Type II Active (Controlled) Nuclear senile cataract Active Nuclear senile cataract Active Nuclear senile cataract Active Nuclear senile cataract Active Nuclear senile cataract Active Nuclear senile cataract Active Nuclear senile cataract Active Nuclear senile cataract Active Nuclear senile cataract Active Nuclear senile cataract Active Nuclear senile cataract Active Nuclear senile cataract Active Nuclear senile cataract Active Nuclear senile cataract Active Nuclear senile cataract Active Nuclear senile cataract Active Nuclear senile cataract Active Nuclear senile cataract Active Type 2 diabetes mellitus Active Type 2 diabetes mellitus Active Type 2 diabetes mellitus Active Type 2 diabetes mellitus Active Type 2 diabetes mellitus Active Type 2 diabetes mellitus Active Type 2 diabetes mellitus Active Type 2 diabetes mellitus Active Type 2 diabetes mellitus Active Type 2 diabetes mellitus Active Type 2 diabetes mellitus Active Type 2 diabetes mellitus Active Type 2 diabetes mellitus Active Type 2 diabetes mellitus Active Type 2 diabetes mellitus Active Type 2 diabetes mellitus Active Kidney disease Active Hyperlipidemia Active Coronary arteriosclerosis Active Kidney disease Active Hyperlipidemia Active Coronary arteriosclerosis Active Kidney disease Active Hyperlipidemia Active Coronary arteriosclerosis Active Kidney disease Active Hyperlipidemia Active Coronary arteriosclerosis Active Kidney disease Active Hyperlipidemia Active Coronary arteriosclerosis Active Kidney disease Active Hyperlipidemia Active Coronary arteriosclerosis Active Kidney disease Active Hyperlipidemia Active Coronary arteriosclerosis Active Kidney disease Active Hyperlipidemia Active Coronary arteriosclerosis Active Kidney disease Active Hyperlipidemia Active Coronary arteriosclerosis Active Kidney disease Active Hyperlipidemia Active Coronary arteriosclerosis Active Kidney disease Active Hyperlipidemia Active Coronary arteriosclerosis Active Kidney disease Active Hyperlipidemia Active Coronary arteriosclerosis Active Kidney disease Active Hyperlipidemia Active Coronary arteriosclerosis Active Kidney disease Active Hyperlipidemia Active Coronary arteriosclerosis Active Kidney disease Active Hyperlipidemia Active Coronary arteriosclerosis Active Kidney disease Active Hyperlipidemia Active Coronary arteriosclerosis Active Hyperlipidemia Active Kidney disease Active Hyperlipidemia Active Coronary arteriosclerosis Active long term care social worker methotrexate user Active Gouty arthropathy Active Hypertensive disorder Active long term care social worker methotrexate user Active Gouty arthropathy Active Hypertensive disorder Active shelter methotrexate user Active Gouty arthropathy Active Hypertensive disorder Active shelter methotrexate user Active Gouty arthropathy Active Hypertensive disorder Active long term care social worker methotrexate user Active Gouty arthropathy Active Hypertensive disorder Active long term care social worker methotrexate user Active Gouty arthropathy Active Hypertensive disorder Active shelter methotrexate user Active Gouty arthropathy Active Hypertensive disorder Active long term care social worker methotrexate user Active Gouty arthropathy Active Hypertensive disorder Active long term care social worker methotrexate user Active Gouty arthropathy Active Hypertensive disorder Active long term care social worker methotrexate user Active Gouty arthropathy Active Hypertensive disorder Active shelter methotrexate user Active Gouty arthropathy Active Hypertensive disorder Active long term care social worker methotrexate user Active Gouty arthropathy Active Hypertensive disorder Active shelter methotrexate user Active Gouty arthropathy Active Hypertensive disorder Active shelter methotrexate user Active Gouty arthropathy Active Hypertensive disorder Active shelter methotrexate user Active Gouty arthropathy Active Hypertensive disorder Active shelter methotrexate user Active Gouty arthropathy Active Hypertensive disorder Active Gouty arthropathy Active Gouty arthropathy Active Encounters Start End Encounter Admission Attending Care Care Encounter Date/Time Date/Time Type Type Clinicians Facility Department ID 2020-08-17 2020-08-17 Tawanda Herman [id number] 00:00:00 00:00:00 DO Leonel: [facility] [id number] [place] [address], Ph. 2017-05-12 2017-05-12 Outpatient Amadeo Arana [id number] 09:00:00 09:00:00 FNPC, [facility] [id number] Health [id number] Center, [id number] Inc. 2017-03-19 2017-03-19 Outpatient Amadeo Arana [id number] 08:30:00 08:30:00 FN, Formerly [facility] [id number] Health [id number] Center, [id number] Inc. 2017-01-28 2017-01-28 Outpatient Amadeo Arana [id number] 10:00:00 10:00:00 FNPC, [facility] [id number] Health [id number] Center, [id number] Inc. 2016-05-22 2016-05-22 Outpatient Amadeo Arana [id number] 08:45:00 08:45:00 FN, [facility]ly [facility] [id number] Health [id number] Center, [id number] Inc. 2016-01-15 2016-01-15 Outpatient Amadeo Arana [id number] 08:45:00 08:45:00 [facility], [facility] [id number] Health [id number] Center, [id number] Inc. 2015-07-24 2015-07-24 Outpatient Amadeo Arana [id number] 12:30:00 12:30:00 FN, [facility] [id number] Health [id number] Center, [id number] Inc. 2015-07-04 2015-07-04 Outpatient Amadeo Arana [id number] 08:30:00 08:30:00 [facility], [facility] [id number] Health [id number] Center, [id number] Inc. 2015-06-27 2015-06-27 Outpatient Amadeo Arana [id number] 08:15:00 08:15:00 FN[facility], [facility] [id number] Health [id number] Center, [id number] Inc. 2015-06-15 2015-06-15 Outpatient Amadeo Arana [id number] 10:30:00 10:30:00 [facility], [facility] [id number] Health [id number] Center, [id number] Inc. 2015-02-16 2015-02-16 Outpatient Amadeo Arana [id number] 08:30:00 08:30:00 FNPC, [facility] [id number] Health [id number] Center, [id number] Inc. 2014-12-11 2014-12-11 Outpatient Amadeo Arana [id number] 08:30:00 08:30:00 [facility], [facility] [id number] Health [id number] Center, [id number] Inc. 2014-09-27 2014-09-27 Outpatient Amadeo Arana [id number] 13:30:00 13:30:00 [facility], [facility] [id number] Health [id number] Center, [id number] Inc. 2014-09-11 2014-09-11 Outpatient Amadeo Arana [id number] 09:00:00 09:00:00 [facility], [facility] [id number] A Health [id number] Center, [id number] Inc. 2014-08-24 2014-08-24 Outpatient Amadeo Arana [id number] 12:30:00 12:30:00 [facility], [facility] [id number] Health [id number] [place], [id number] Inc. 2014-08-09 2014-08-09 Outpatient Amadeo Arana [id number] 08:00:00 08:00:00 [facility], [facility] [id number]- B Health [id number] Center, [id number] Inc. 2014-07-24 2014-07-24 Outpatient Amadeo Arana [id number] 11:00:00 11:00:00 [facility] [id number] Health [id number] [place], [id number] Inc. 2014-06-09 2014-06-09 Outpatient Amadeo Arana [id number] 09:15:00 09:15:00 [facility] [id number] [facility] [id number] [place], [id number] Inc. 2014-06-01 2014-06-01 Outpatient Tiffanie JAMES, JOANIE Arana [id number] 13:45:00 13:45:00 [facility] [id number] [facility] [id number] [employer], [id number] Inc. 2014-05-11 2014-05-11 Outpatient Amadeo Arana [id number] 11:28:00 11:28:00 [facility] [id number]- A [facility] [id number] [place], [id number] Inc. 2014-05-10 2014-05-10 Outpatient Amadeo Arana [id number] 10:45:00 10:45:00 [facility] [id number]- [id number] [facility] [id number] [place], [id number] Inc. 2014-02-07 2014-02-07 Outpatient Tiffanie JAMES, JOANIE Arana [id number] 09:00:00 09:00:00 [facility] [id number] [facility] [id number] [place], [id number] Inc. Immunizations Ordered Immunization Filled Immunization Date Status Commen ts Refusal Reason Name Name influenza, 2016-07-12 Completed unspecified 00:00:00 formulation influenza, 2014-07-12 Completed unspecified 00:00:00 formulation Plan of Treatment Planned Activity Planned Date Details Comments Future Appointment 2020-09-17 08:10:00 Vince Pop, [address] [place] [address]; [address], [place] [address] Social History Smoking Status Start Date Stop Date Former Smoker Vital Signs Vital Name Observation Time Observation Value Comments Height 2020-08-17 00:00:00 66 [in_i] BMI (Body Mass Index) 2020-08-17 00:00:00 38.1 kg/m2 Body Weight 2020-08-17 00:00:00 236 [lb_av] Hospital Discharge Instructions 1. Pain of left shoulder joint XR, shoulder 2. Full thickness rotator cuff tear tizanidine 4mg tablet MRI, shoulder, w/o contrast Discussion Note: None recorded. Patient educational handouts: No information available.
== END ==
LOC: RAD 07:55
PROVIDERS: ATTEND Family Medicine
DX: M75.112 Incomplete rotator cuff tear or rupture of left shoulder, not specified as traumatic (principal)

== ENCOUNTER → 2020-08-22 | Outpatient (CLI) | payer BC ==
--- OUTSIDE RECORDS SUMMARY | 2020-08-23 18:22 | XMS REPORT ---
:1955 [facility] [address] [place] [address] Care Team Providers Name Role Phone Amadeo [...] 00:00:00 MRI, shoulder, w/o contrast 2020-08-17 00:00:00 ROUTINE VENIPUNCTURE 2017-05-12 09:00:00 ASSAY OF BLOOD/URIC ACID 2017-05-12 09:00:00 OFFICE/OUTPATIENT VISIT, EST 2017-05-12 09:00:00 OFFICE/OUTPATIENT VISIT, EST 2017-03-19 08:30:00 [...] 160 MG/DL 70-110 25 [place] VITAMIN D [id number] 09:43:00 Test Item Value Reference Range Comments VIT D (test code = VIT D) 41 NG/ML 30-100 DIRECT [id number] 09:43:00 Test Item Value Reference Range Comments DLDL (test code = DLDL) 72 MG/DL 100-130 URIC [id number] 09:43:00 Test Item Value Reference Range Comments URIC (test code = URIC) 3.6 MG/DL 2.6-7.2 GLY.[id number] 09:43:00 Test Item Value Reference Range Comments HA1C (test code = HA1C) 6.7 % 4.8-6.0 [id number] 09:43:00 Test Item Value Reference Range Comments MAG (test code = MAG) 2.3 MG/DL 1.8-2.4 CHEM [id number] 09:43:00 Test Item Value Reference Range Comments [...] GLOB (test code = GLOB) 3.5 1.9-4.5 [id number] 09:43:00 Test Item Value Reference Range Comments CHOL (test code = CHOL) 133 MG/DL 140-200 CHEM [id number] 13:39:00 Test Item Value Reference Range Comments [...] code = CL) 109 MMOL/L 98-110 CHEM [id number] 09:19:00 Test Item Value Reference Range Comments [...] = CL) 106 MMOL/L 98-110 Gamma Glutamyl [id number] 11:54:00 Test Item Value Reference Range Comments GGT (test code = 053531) 48 IU/L 0-65 LIVER [id number] 11:54:00 Test Item Value Reference Range Comments [...] 124 U/L 50-136 25 OH VITAMIN D [id number] 11:13:00 Test Item Value Reference Range Comments VIT D (test code = VIT D) 26 NG/ML 30-100 TOTAL [id number] 11:13:00 Test Item Value Reference Range Comments TT3 (test code = TT3) 1.05 NG/ML 0.70-1.70 LIPID [id number] 11:13:00 Test Item Value Reference Range Comments CHD (test code = CHD) 24.88 HDL (test code = HDL) 50 MG/DL 32-96 TGL (test code = TGL) 58 MG/DL 30-200 CHOL (test code = CHOL) 201 MG/DL 140-200 DLDL (test code = DLDL) 141 MG/DL 100-130 [id number] 11:13:00 Test Item Value Reference Range Comments TSH (test code = TSH) 1.87 UIU/ML 0.50-5.80 GLY.[id number] 11:13:00 Test Item Value Reference Range Comments HA1C (test code = HA1C) 8.0 % 4.8-6.0 FREE T4.2017-01-28 11:13:00 Test Item Value Reference Range Comments FT4 (test code = FT4) 1.00 NG/DL 0.75-1.54 CK [id number] 11:13:00 Test Item Value Reference Range Comments CKT (test code = CKT) 191 U/L 39-308 CHEM [id number] 11:13:00 Test Item Value Reference Range Comments [...] ION GAP) 17 4-16 FLU A & [id number] 09:13:00 Test Item Value Reference Range Comments FLU AB (test code = FLU AB) Negative A&B\X0D0A\ Negative STREP (RAPID SCREEN)2016-11-25 09:13:00 Test Item Value Reference Range Comments RSS (test code = RSS) POSITIVE NEGATIVE TESTOSTERONE, [id number] 16:00:00 Test Item Value Reference Range Comments TEST (test code = TEST) 237.4 NG/DL 199.0-1586.0 PSA [id number] 09:14:00 Test Item Value Reference Range Comments PSA (test code = PSA) 0.4 NG/ML 0.0-4.0 URINALYSIS([id number])2016-05-22 09:14:00 Test Item Value Reference Range Comments [...] (test code = UBLD) Negative Negative CHEM [id number] 09:14:00 Test Item Value Reference Range Comments [...] code = AST) 35 U/L 9-37 URIC [id number] 09:14:00 Test Item Value Reference Range Comments URIC (test code = URIC) 7.0 MG/DL 2.6-7.2 25 OH VITAMIN D [id number] 09:14:00 Test Item Value Reference Range Comments VIT D (test code = VIT D) 29 L NG/ML 30-100 GLY.[id number] 09:14:00 Test Item Value Reference Range Comments HA1C (test code = HA1C) 7.3 % 4.8-6.0 DIRECT [id number] 09:14:00 Test Item Value Reference Range Comments DLDL (test code = DLDL) 151 MG/DL 100-130 [id number] 09:14:00 Test Item Value Reference Range Comments MAG (test code = MAG) 2.2 MG/DL 1.8-2.4 [id number] 09:14:00 Test Item Value Reference Range Comments TSH (test code = TSH) 2.38 UIU/ML 0.50-5.80 DIRECT [id number] 09:49:00 Test Item Value Reference Range Comments DLDL (test code = DLDL) 96 MG/DL 100-130 CK [id number] 09:49:00 Test Item Value Reference Range Comments CKT (test code = CKT) 103 U/L 39-308 25 OH VITAMIN D [id number] 09:49:00 Test Item Value Reference Range Comments VIT D (test code = VIT D) 26 L NG/ML 30-100 CHEM [id number] 09:49:00 Test Item Value Reference Range Comments [...] ALK PHOS) 108 U/L 50-136 Uric A+ESTEVAN+RA Qn+CRP+[id number] 12:48:00 Test Item Value Reference Range Comments ESTEVAN Direct (test code = 521418) Negative Negative Antistreptolysin O Ab (test code = 369848) 135.8 IU/mL 0.0-2 00.0 C-Reactive Protein, Quant (test code = 379295) 1.3 mg/L 0 .0-4.9 Uric Acid, Serum (test code = 892092) 6.8 mg/dL 3.7-8.6 ESTEVAN Direct (test code = 2635386) Negative Negative RA Latex Turbid. (test code = 163119) 10.2 IU/mL 0.0-13.9 ESTEVAN Direct (test code = 72604590) Negative Negative CHEM 12:48:00 Test Item Value [...] BUN/CREAT RATIO) 14 10 -14 CBC W/DIFF [id number] 12:48:00 Test Item Value Reference Range Comments [...] = ESR) 11 MM/HR 0-10 MRSA Screening [id number] 09:16:00 Test Item Value Reference Range Comments MRSA Screening Culture (test code = 536771) Negative LIPID [id number] 11:46:00 Test Item Value Reference Range Comments CHOL (test code = CHOL) 190 MG/DL 140-200 HDL (test code = HDL) 44 MG/DL 32-96 DLDL (test code = DLDL) 123 MG/DL 100-130 TGL (test code = TGL) 121 MG/DL 30-200 CHD (test code = CHD) 23.16 GLY.[id number] 11:46:00 Test Item Value Reference Range Comments HA1C (test code = HA1C) 7.2 % 4.8-6.0 CHEM [id number] 11:46:00 Test Item Value Reference Range Comments [...] (test code = CA) 9.0 MG/DL 8.5-10.1 PFCPCGM-[id number] 11:46:00 Test Item Value Reference Range Comments GLU-G (test code = GLU-G) 120 70.00-115.00 25 OH VITAMIN D [id number] 11:46:00 Test Item Value Reference Range Comments VIT D (test code = VIT D) 33 N NG/ML 30-100 25 OH VITAMIN D [id number] 08:05:00 Test Item Value Reference Range Comments VIT D (test code = VIT D) 23 L NG/ML 30-100 CK [id number] 08:05:00 Test Item Value Reference Range Comments CKT (test code = CKT) 123 U/L 39-308 [id number] 08:05:00 Test Item Value Reference Range Comments MAG (test code = MAG) 2.1 MG/DL 1.8-2.4 [id number] 08:05:00 Test Item Value Reference Range Comments K (test code = K) 4.3 MMOL/L 3.5-5.1 ALK [id number] 13:51:00 Test Item Value Reference Range Comments ALK PHOS (test code = ALK PHOS) 102 U/L 50-136 CHEM [id number] 09:04:00 Test Item Value Reference Range Comments [...] code = ALT) 33 U/L 9-61 CK [id number] 09:04:00 Test Item Value Reference Range Comments CKT (test code = CKT) 103 U/L 39-308 LIPID [id number] 09:04:00 Test Item Value Reference Range Comments DLDL (test code = DLDL) 58 MG/DL 100-130 CHOL (test code = CHOL) 112 MG/DL 140-200 CHD (test code = CHD) 45.54 TGL (test code = TGL) 112 MG/DL 30-200 HDL (test code = HDL) 51 MG/DL 32-96 25 OH VITAMIN D [id number] 09:04:00 Test Item Value Reference Range Comments VIT D (test code = VIT D) 32 N NG/ML 30-100 GLY.[id number] 09:04:00 Test Item Value Reference Range Comments HA1C (test code = HA1C) 6.8 % 4.8-6.0 URINALYSIS([id number])2014-09-11 09:04:00 Test Item Value Reference Range Comments [...] (test code = TPU) Negative Negative PSA [id number] 09:04:00 Test Item Value Reference Range Comments PSA (test code = PSA) 0.4 NG/ML 0.0-4.0 URIC [id number] 09:04:00 Test Item Value Reference Range Comments URIC (test code = URIC) 4.6 MG/DL 2.6-7.2 [id number] 11:10:00 Test Item Value Reference Range Comments MAG (test code = MAG) 2.2 MG/DL 1.8-2.4 LYTES [id number] 11:10:00 Test Item Value Reference Range Comments [...] (test code = CR) 1.0 MG/DL 0.4-1.3 [id number] 11:10:00 Test Item Value Reference Range Comments [...] code = RDW) 15.4 H % 12.0-15.1 [id number] 11:10:00 Test Item Value Reference Range Comments UCR (test code = UCR) 348.3 MG/DL 30.0-125.0 UALB (test code = UALB) 16.9 MG/L 1.3-20.0 UALB/UCR RATIO (test code = UALB/UCR RATIO) 5 MG/DL URINALYSIS([id number])2014-07-24 11:10:00 Test Item Value Reference Range Comments SPGR (test code = SPGR) 1.020 1.010-1.030 NIT (test code = NIT) Negative Negative CLAR (test code = CLAR) Clear Clear UGLU (test code = UGLU) Negative Negative PH (test code = PH) 7.0 UBLD (test code = UBLD) 3+ Negative UKET (test code = UKET) Trace Negative RBANDON (test code = BRANDON) Negative Negative UUROBIL (test code = UUROBIL) 1.0 E.U./dL 0.2, 1.0 COLOR (test code = COLOR) Yellow Yellow TPU (test code = TPU) Negative Negative UBIL (test code = UBIL) 1+ MG/DL Negative CBC, Platelet; No [id number] 09:56:00 Test Item Value Reference Range Comments Sendouts (test code = Sendouts) Sent to Reference [facility] Sendouts (test code = Sendouts6) Sent to Reference Lab CHEM [id number] 14:35:00 Test Item Value Reference Range Comments [...] CR) 1.6 MG/DL 0.4-1.3 OCCULT BLOOD AUTO [id number] 14:35:00 Test Item Value Reference Range Comments OCBS (test code = OCBS) Positive Negative [id number] 14:39:00 Test Item Value Reference Range Comments [...] code = RBC) 4.04 L CU/MM 4.27-5.49 [id number] 14:39:00 Test Item Value Reference Range Comments [...] code = BA#) 0.1 K/uL 0.0-0.1 LYTES [id number] 11:12:00 Test Item Value Reference Range Comments [...] code = CO2) 30.8 MMOL/L 21.0-32.0 CHEM [id number] 10:00:00 Test Item Value Reference Range Comments [...] Hyperlipidemia, unspecified Active Athscl heart disease of [place] coronary Active artery w/o ang pctrs Essential [...] Vitamin D Active Cramp - Limb Active Bronchitis - Unspecified Active Diabetes Mellitus - Type II Active (Controlled) Hypertension - Benign (Essential) Active Hyperlipidemia (Unspecified) Active Abnormal - Clinical Findings Active Diabetes [...] disease Active Hyperlipidemia Active Coronary arteriosclerosis Active terminal worker methotrexate user Active Gouty arthropathy Active Hypertensive disorder Active terminal worker methotrexate user Active Gouty arthropathy Active Hypertensive disorder Active snf methotrexate user Active Gouty arthropathy Active Hypertensive disorder Active snf methotrexate user Active Gouty arthropathy Active Hypertensive disorder Active terminal worker methotrexate user Active Gouty arthropathy Active Hypertensive disorder Active terminal worker methotrexate user Active Gouty arthropathy Active Hypertensive disorder Active snf methotrexate user Active Gouty arthropathy Active Hypertensive disorder Active terminal worker methotrexate user Active Gouty arthropathy Active Hypertensive disorder Active terminal worker methotrexate user Active Gouty arthropathy Active Hypertensive disorder Active terminal worker methotrexate user Active Gouty arthropathy Active Hypertensive disorder Active snf methotrexate user Active Gouty arthropathy Active Hypertensive disorder Active terminal worker methotrexate user Active Gouty arthropathy Active Hypertensive disorder Active snf methotrexate user Active Gouty arthropathy Active Hypertensive disorder Active snf methotrexate user Active Gouty arthropathy Active Hypertensive disorder Active snf methotrexate user Active Gouty arthropathy Active Hypertensive disorder Active snf methotrexate user Active Gouty arthropathy Active Hypertensive disorder Active Gouty arthropathy Active Gouty arthropathy Active Encounters Start End Encounter Admission Attending Care Care Encounter Date/Time Date/Time Type Type Clinicians Facility Department ID 2020-08-17 2020-08-17 Tawanda Herman [id number] 00:00:00 00:00:00 DO Leonel: [facility] [id number] [place] [address], Ph. 2017-05-12 2017-05-12 Outpatient Amadeo Arana [id number] 09:00:00 09:00:00 FNPC, [facility] [id number] Health [id number] Center, [id number] Inc. 2017-03-19 2017-03-19 Outpatient Amadeo Arana [id number] 08:30:00 08:30:00 FN, [facility] [id number] Health [id number] Center, [id number] Inc. 2017-01-28 2017-01-28 Outpatient Amadeo Arana [id number] 10:00:00 10:00:00 FNPC, [facility] [id number]- 8 Health [id number] Center, AFA8DE Inc. 2016-05-22 2016-05-22 Outpatient Amadeo Arana [id number] 08:45:00 08:45:00 FN, [facility] [id number]- 8 Health [id number] Center, [id number] Inc. 2016-01-15 2016-01-15 Outpatient Amadeo Arana [id number] 08:45:00 08:45:00 FNPC, [facility] [id number]- A Health [id number] Center, [id number] Inc. 2015-07-24 2015-07-24 Outpatient Amadeo Arana [id number] 12:30:00 12:30:00 FN, [facility] [id number] Health [id number] Center, [id number] Inc. 2015-07-04 2015-07-04 Outpatient Amadeo Arana [id number] 08:30:00 08:30:00 FNPC, [facility] [id number]- A Health [id number] Center, [id number] Inc. 2015-06-27 2015-06-27 Outpatient Amadeo Arana [id number] 08:15:00 08:15:00 FNPC, [facility] [id number]- 8 Health [id number] Center, [id number] Inc. 2015-06-15 2015-06-15 Outpatient Amadeo Arana [id number] 10:30:00 10:30:00 FNPC, [facility] [id number]- 8 Health [id number] Center, [id number] Inc. 2015-02-16 2015-02-16 Outpatient Amadeo Arana [id number] 08:30:00 08:30:00 FNPC, [facility] [id number]- B Health [id number] Center, [id number] Inc. 2014-12-11 2014-12-11 Outpatient Amadeo Arana [id number] 08:30:00 08:30:00 FNPC, [facility] [id number] Health [id number] Center, [id number] Inc. 2014-09-27 2014-09-27 Outpatient Amadeo Arana [id number] 13:30:00 13:30:00 FNPC, [facility] [id number]- 9 Health [id number] Center, [id number] Inc. 2014-09-11 2014-09-11 Outpatient Amadeo Arana [id number] 09:00:00 09:00:00 FNPC, [facility] [id number]- A Health [id number] Center, [id number] Inc. 2014-08-24 2014-08-24 Outpatient Amadeo Arana [id number] 12:30:00 12:30:00 FNPC, [facility] [id number]- A Health [id number] [place], [id number] Inc. 2014-08-09 2014-08-09 Outpatient Amadeo Arana [id number] 08:00:00 08:00:00 FNPC, [facility] [id number]- B Health [id number] Center, [id number] Inc. 2014-07-24 2014-07-24 Outpatient Amadeo Arana [id number] 11:00:00 11:00:00 [facility] [id number]- 8 Health [id number] [place], [id number] Inc. 2014-06-09 2014-06-09 Outpatient Amadeo Arana [id number] 09:15:00 09:15:00 [facility] [id number]- [id number] [facility] [id number] [place], [id number] Inc. 2014-06-01 2014-06-01 Outpatient Tiffanie JAMES, JOANIE Arana [id number] 13:45:00 13:45:00 [facility] [id number] [facility] [id number] [place], [id number] Inc. 2014-05-11 2014-05-11 Outpatient Amadeo Arana [id number] 11:28:00 11:28:00 [facility] [id number]-[id number]- A [facility] [id number] [place], [id number] Inc. 2014-05-10 2014-05-10 Outpatient Amadeo Arana [id number] 10:45:00 10:45:00 [facility] [id number]- B [facility] [id number] [place], [id number] Inc. 2014-02-07 2014-02-07 Outpatient Tiffanie JAMES, JOANIE Arana [id number] 09:00:00 09:00:00 [facility] [id number] [facility] [id number] [place], [id number] Inc. Immunizations Ordered Immunization Filled Immunization Date Status Commen ts Refusal Reason Name Name influenza, 2016-07-12 Completed unspecified 00:00:00 formulation influenza, 2014-07-12 Completed unspecified 00:00:00 formulation Plan of Treatment Planned Activity Planned Date Details Comments Future Appointment 2020-09-17 08:10:00 Vince Pop, [address] [place] [address]; [address], [place] [address] Social History Smoking Status Start Date Stop [...]
== END ==
LOC: HHS 09:21
DX: Z12.83 Encounter for screening for malignant neoplasm of skin (principal); D22.5 Melanocytic nevi of trunk; L85.3 Xerosis cutis

== ENCOUNTER → 2020-08-24 | Outpatient (CLI) | payer BC ==
--- NOTE | 2020-08-25 11:35 | RADIOLOGY REPORT (SQ) ---
EXAM DESCRIPTION: MRI HEAD COMBO IMAGES COMPLETED DATE/TIME: 08/24/2020 8:28 pm REASON FOR STUDY: (R51.9)HEADACHE, UNSPECIFIED;(R20.2)PARESTHESIA OF SKIN;(R53.1)WEAKNESS R51.9 HEA DACHE, UNSPECIFIED R20.2 PARESTHESIA OF SKIN R53.1 WEAKNESS COMPARISON: None. TECHNIQUE: Multiplanar imaging includes noncontrasted T1, T2, FLAIR, and Diffusion with ADC map seq uences. Contrast enhanced T1 images. Images stored on PACS. CONTRAST TYPE AND DOSE: 20 mL Prohance. RENAL FUNCTION: Not indicated. ACR Type II contrast agent associated with few, if any, unconfounded cases of NSF LIMITATIONS: None. FINDINGS: ANATOMY: No anomalies. Normal vascular flow voids. Pituitary fossa normal. CSF SPACES: Normal size and contour. No hemorrhage. CEREBRUM: A few high-signal intensity lesions scattered throughout the white matter on FLAIR imaging with distribution suggesting chronic microvascular ischemic change. Sulci and gyri normal in size and contour. No evidence of hemorrhage, mass or extraaxial fluid collection. No enhancing lesions. POSTERIOR FOSSA: No signal alteration. No hemorrhage. No edema, masses or mass effect. Internal audit ory canals, cerebello-pontine angles, mastoids normal. DIFFUSION: Negative for acute or subacute infarction. ORBITS: No masses. Globes normal. PARANASAL SINUSES: No fluid levels. Mucosa normal. OTHER: No other significant finding. IMPRESSION: NO ENHANCING LESIONS. MINIMAL MICROVASCULAR ISCHEMIC CHANGE. OTHERWISE NORMAL STUDY. EVIDENCE OF ACUTE STROKE: NO. TECHNICAL DOCUMENTATION: JOB ID: [id number] 2010 [employer]- All Rights Reserved Reading location - IP/workstation name: [email or web address]
--- NOTE | 2020-08-25 11:41 | RADIOLOGY REPORT (SQ) ---
EXAM DESCRIPTION: MRI CERVICAL SPINE COMBO IMAGES COMPLETED DATE/TIME: 08/24/2020 8:28 pm REASON FOR STUDY: (R51.9)HEADACHE, UNSPECIFIED;(R20.2)PARESTHESIA OF SKIN;(R53.1)WEAKNESS R51.9 HEA DACHE, UNSPECIFIED R20.2 PARESTHESIA OF SKIN R53.1 WEAKNESS COMPARISON: None. TECHNIQUE: Sagittal and Axial imaging includes T1, T2, STIR and gradient echo sequences. T1 post srikanth olinium sequences. CONTRAST TYPE AND DOSE: 20 mL Prohance. RENAL FUNCTION: Not indicated. ACR Type II contrast agent associated with few, if any, unconfounded cases of NSF LIMITATIONS: Mild-moderate motion artifact on some sequences. FINDINGS: ALIGNMENT: Normal. VERTEBRAE: Intact. BONE MARROW: Normal. No marrow replacement or reactive changes. DISCS: Variable signal and height loss. HARDWARE: None in the spine. CORD AND BASE OF BRAIN: Normal in size and signal intensity. SOFT TISSUES: No soft tissue masses. C1-C2: No significant spinal stenosis. C2-C3: Mild left foraminal narrowing. C3-C4: Mild disc osteophyte complex and mild facet arthropathy. No significant central stenosis. Mi ld -moderate bilateral foraminal narrowing. C4-C5: Left facet overgrowth with moderate-marked left and mild right foraminal narrowing. C5-C6: Disc osteophyte complex without cord compression. Facet arthropathy. Mild central stenosis. Moderate-marked bilateral foraminal stenosis. C6-C7: Disc osteophyte complex without cord compression. Moderate -marked bilateral foraminal stenos is. C7-T1: Bilateral moderate foraminal narrowing. UPPER THORACIC: Incompletely imaged. No significant spinal stenosis or exit foraminal stenosis. ENHANCEMENT: No abnormal enhancement. OTHER: No other significant finding. IMPRESSION: 1. Multilevel spondylosis. No evidence of high-grade central narrowing or cord compression. No enha ncing cord lesions. Note is made of multilevel foraminal stenosis as above. 2. No fracture or bone lesion or spinal malalignment. COMMENT: None. TECHNICAL DOCUMENTATION: JOB ID: [id number] 2010 [employer]- All Rights Reserved Reading location - IP/workstation name: [email or web address]
== END ==
LOC: RAD 08-01 08:50
PROVIDERS: ATTEND Pediatrics
DX: R51.9 Headache, unspecified (principal); R20.2 Paresthesia of skin; R53.1 Weakness; H55.00 Unspecified nystagmus; M47.893 Other spondylosis, cervicothoracic region
CPT/HCPCS: 82565; 70553; 72156; A9576

== ENCOUNTER → 2020-09-14 | Outpatient (CLI) | payer BC ==
[2020-09-14 11:58] LABS: ABSOLUTE BASOPHILS # (AUTO) 0.1 10^3/uL (0.0-0.2); ABSOLUTE EOSINOPHILS # (AUTO) 0.1 10^3/uL (0.0-0.6); ABSOLUTE LYMPHOCYTES (AUTO) 1.6 10^3/uL (0.5-4.7); ABSOLUTE MONOCYTES (AUTO) 0.7 10^3/uL (0.1-1.4); ABSOLUTE NEUT (AUTO) 3.4 10^3/uL (1.7-8.2); EOSINOPHILS % (AUTO) 1.7 % (0-6); HEMATOCRIT 34.9 % (37.9-51.0); HEMOGLOBIN 11.5 g/dL (13.5-17.0); LYMPHOCYTES % (AUTO) 28.1 % (13-45); MEAN CORPUSCULAR VOLUME 91 fl (80-97); MONOCYTES % (AUTO) 11.4 % (3-13); PLATELET COUNT 241 10^3/uL (150-450); RED BLOOD COUNT 3.84 10^6/uL (4.35-5.55); SEGMENTED NEUTROPHILS % (AUTO) 57.8 % (42-78); TOTAL CELLS COUNTED % (AUTO) 100 %; WHITE BLOOD COUNT 5.9 10^3/uL (4.0-10.5)
[2020-09-14 12:01] LABS: APPEARANCE,URINE CLEAR; BILIRUBIN,URINE NEGATIVE (NEGATIVE); COLOR,URINE YELLOW; GLUCOSE, URINE NEGATIVE (NEGATIVE); KETONES,URINE NEGATIVE (NEGATIVE); LEUKOCYTE ESTERASE,URINE NEGATIVE (NEGATIVE); NITRITE,URINE NEGATIVE (NEGATIVE); PROTEIN,URINE NEGATIVE (NEGATIVE)
[2020-09-14 12:14] LABS: ANION GAP 6 (5-19); BLOOD UREA NITROGEN 19 mg/dL (7-20); CARBON DIOXIDE 28 mmol/L (22-30); CHLORIDE 108 mmol/L (98-107); GLUCOSE 105 mg/dL (75-110); POTASSIUM 5.3 mmol/L (3.6-5.0)
== END ==
LOC: OD 11:06
PROVIDERS: ATTEND Internal Medicine Nephrology
DX: I12.9 Hypertensive chronic kidney disease with stage 1 through stage 4 chronic kidney disease, or unspecified chronic kidney disease (principal); N18.2 Chronic kidney disease, stage 2 (mild); E11.22 Type 2 diabetes mellitus with diabetic chronic kidney disease; R60.9 Edema, unspecified; E66.9 Obesity, unspecified
CPT/HCPCS: 36415; 80048; 81001; 83735; 85025

== ENCOUNTER → 2020-09-24 | Outpatient (CLI) | payer BC ==
[2020-09-25 09:03] LABS: ABSOLUTE BASOPHILS # (AUTO) 0.1 10^3/uL (0.0-0.2); ABSOLUTE EOSINOPHILS # (AUTO) 0.2 10^3/uL (0.0-0.6); ABSOLUTE LYMPHOCYTES (AUTO) 2.6 10^3/uL (0.5-4.7); ABSOLUTE MONOCYTES (AUTO) 0.8 10^3/uL (0.1-1.4); ABSOLUTE NEUT (AUTO) 4.6 10^3/uL (1.7-8.2); BASOPHILS % (AUTO) 0.8 % (0-2); EOSINOPHILS % (AUTO) 1.8 % (0-6); HEMATOCRIT 37.8 % (37.9-51.0); HEMOGLOBIN 12.2 g/dL (13.5-17.0); LYMPHOCYTES % (AUTO) 31.2 % (13-45); MEAN CORPUSCULAR HEMOGLOBIN 28.8 pg (27.0-33.4); MEAN CORPUSCULAR HGB CONC 32.3 g/dL (32.0-36.0); MEAN CORPUSCULAR VOLUME 89 fl (80-97); PLATELET COUNT 303 10^3/uL (150-450); RED BLOOD COUNT 4.24 10^6/uL (4.35-5.55); RED CELL DISTRIBUTION WIDTH 14.5 % (11.5-14.0); SEGMENTED NEUTROPHILS % (AUTO) 56.2 % (42-78); TOTAL CELLS COUNTED % (AUTO) 100 %; WHITE BLOOD COUNT 8.2 10^3/uL (4.0-10.5)
[2020-09-25 09:35] LABS: ALBUMIN 4.3 g/dL (3.5-5.0); ALKALINE PHOSPHATASE 91 U/L (38-126); ANION GAP 7 (5-19); ASPARTATE AMINO TRANSFERASE 29 U/L (17-59); BILIRUBIN,DIRECT 0.1 mg/dL (0.0-0.4); BILIRUBIN,TOTAL 0.7 mg/dL (0.2-1.3); BLOOD UREA NITROGEN 28 mg/dL (7-20); CALCIUM 9.5 mg/dL (8.4-10.2); CARBON DIOXIDE 29 mmol/L (22-30); CHLORIDE 106 mmol/L (98-107); GLUCOSE 87 mg/dL (75-110); POTASSIUM 4.1 mmol/L (3.6-5.0); TOTAL PROTEIN 7.2 g/dL (6.3-8.2)
== END ==
LOC: LAB 22:46
PROVIDERS: ATTEND Nurse Practitioner Family
DX: E11.65 Type 2 diabetes mellitus with hyperglycemia (principal)
CPT/HCPCS: 36415; 80053; 82043; 82570; 83036; 84443; 85025

== ENCOUNTER → 2020-09-28 | Outpatient (CLI) | payer BC ==
[~2020-09-28] MED LIST changes: -BALANCED SALT IRRIG SOLN COMB2 15 ML BOTTLE ONE; +COVID-19 VACCINE (PFIZER)/PF 30 MCG/0.3 ML VIAL IM ONE; +EPINEPHRINE INJ/PF 1 MG/1 ML AMPULE IM PRN; -POVIDONE-IODINE 5% OPH PREP SOLN 30 ML ONE; -TOBRAMYCIN SULFATE/DEXAMETH OPH OINTMENT 3.5 GM ONE
== END ==
LOC: EMPHEALTH 10:09
PROVIDERS: ATTEND Internal Medicine
DX: Z23 Encounter for immunization (principal)
CPT/HCPCS: 91300

== ENCOUNTER 2020-09-29 00:44 | Emergency (ER) | payer BC ==
[2020-09-29 01:52] LABS: APPEARANCE,URINE CLEAR; BILIRUBIN,URINE NEGATIVE (NEGATIVE); COLOR,URINE YELLOW; GLUCOSE, URINE NEGATIVE (NEGATIVE); KETONES,URINE NEGATIVE (NEGATIVE); LEUKOCYTE ESTERASE,URINE NEGATIVE (NEGATIVE); NITRITE,URINE NEGATIVE (NEGATIVE); PROTEIN,URINE NEGATIVE (NEGATIVE); URINE SPECIFIC GRAVITY 1.025; UROBILINOGEN,URINE NEGATIVE mg/dL (<2.0)
[2020-09-29 01:55] LABS: ABSOLUTE BASOPHILS # (AUTO) 0.1 10^3/uL (0.0-0.2); ABSOLUTE EOSINOPHILS # (AUTO) 0.2 10^3/uL (0.0-0.6); ABSOLUTE LYMPHOCYTES (AUTO) 2.7 10^3/uL (0.5-4.7); ABSOLUTE MONOCYTES (AUTO) 1.3 10^3/uL (0.1-1.4); ABSOLUTE NEUT (AUTO) 6.4 10^3/uL (1.7-8.2); BASOPHILS % (AUTO) 0.7 % (0-2); EOSINOPHILS % (AUTO) 1.8 % (0-6); HEMATOCRIT 38.1 % (37.9-51.0); HEMOGLOBIN 12.4 g/dL (13.5-17.0); MEAN CORPUSCULAR HEMOGLOBIN 28.8 pg (27.0-33.4); MEAN CORPUSCULAR HGB CONC 32.6 g/dL (32.0-36.0); MEAN CORPUSCULAR VOLUME 88 fl (80-97); PLATELET COUNT 211 10^3/uL (150-450); RED BLOOD COUNT 4.31 10^6/uL (4.35-5.55); RED CELL DISTRIBUTION WIDTH 14.3 % (11.5-14.0); SEGMENTED NEUTROPHILS % (AUTO) 60.5 % (42-78); TOTAL CELLS COUNTED % (AUTO) 100 %; WHITE BLOOD COUNT 10.6 10^3/uL (4.0-10.5)
[2020-09-29 02:11] LABS: ALKALINE PHOSPHATASE 112 U/L (38-126); ANION GAP 8 (5-19); ASPARTATE AMINO TRANSFERASE 32 U/L (17-59); BILIRUBIN,DIRECT 0.3 mg/dL (0.0-0.4); BILIRUBIN,TOTAL 0.6 mg/dL (0.2-1.3); BLOOD UREA NITROGEN 25 mg/dL (7-20); CALCIUM 9.1 mg/dL (8.4-10.2); CARBON DIOXIDE 24 mmol/L (22-30); CHLORIDE 111 mmol/L (98-107); GLUCOSE 93 mg/dL (75-110); POTASSIUM 4.5 mmol/L (3.6-5.0); TOTAL PROTEIN 6.9 g/dL (6.3-8.2)
[2020-09-29] MEDS ORDERED: HYDROMORPHONE HCL INJ/PF 2 MG/ML AMPULE IV ONE (02:29)
[2020-09-29] MEDS ORDERED: PROMETHAZINE HCL INJ 25 MG/1 ML VIAL IV ONE (02:29)
[2020-09-29] MEDS ORDERED: TAMSULOSIN HCL 0.4 MG CAP.SR.24H PO ONE (02:56)
[2020-09-29] MEDS ORDERED: KETOROLAC TROMETHAMINE INJ/PF 30 MG/1 ML SDV IV ONE (02:56)
--- NOTE | 2020-09-29 02:56 | ER Document Report ---
ED General - General Chief Complaint: Possible Kidney Stone Stated Complaint: POSSIBLE KIDNEY STONE Time Seen by Provider: 09/29/20 02:21 Primary Care Provider: Tanika KIRK MD [Primary Care Provider] - Follow up as needed TRAVEL OUTSIDE OF THE [place] IN LAST 30 DAYS: No - HPI Context: Time:249 Chief Complaint: [Right flank pain] [Six 5-year-old male with a history of kidney stones presents complaining of right-sided flank pain that started around 1900 hrs. tonight. 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 Patient denies prior history of AAA. Positive nausea ] History obtained from [patient] Symptoms began:[1900 hrs.] Onset: [Sudden] Timing: [Sudden] Quality: [Sharp] Intensity: [4] Location: [Right flank] Radiation: [Radiates around the right groin] [The pain does not migrate to a new location.] Aggravating factors: [none] Relieving factors: [none] [Denies] SOB Positive] nausea [Denies] vomiting [Denies] sweats [Denies] fever [Denies] cough [Denies] calf or leg swelling or pain - Related Data Allergies/Adverse Reactions: butorphanol tartrate [From Stadol] Allergy (Severe, Verified 01/25/19 09:57) Anaphylaxis pseudoephedrine HCl [From Sudafed] Allergy (Intermediate, Verified 01/25/19 09:57) Hives triprolidine HCl [From Actifed] Allergy (Intermediate, Verified 01/25/19 09:57) Hives nalbuphine HCl [From Nubain] Allergy (Unknown, Verified 01/25/19 09:57) Anaphylaxis TOMATO Allergy (Intermediate, Uncoded 01/25/19 09:57) Hives Past Medical History - General Information source: Patient - Social History Smoking Status: Never Smoker Family History: Reviewed & Not Pertinent, DM, Hypertension - Past Medical History Cardiac Medical History: Reports: Hx Coronary Artery Disease, Hx Hypercholesterolemia, Hx Hypertension - MEDICATED Denies: Hx Heart Attack Pulmonary Medical History: Denies: Hx Asthma, Hx Tuberculosis Neurological Medical History: Denies: Hx Cerebrovascular Accident, Hx Seizures Endocrine Medical History: Reports: Hx Diabetes Mellitus Type 2 Renal/ Medical History: Reports: Hx Kidney Stones. Denies: Hx Peritoneal Dialysis GI Medical History: Reports: Hx Gastroesophageal Reflux Disease, Hx Ulcer - YEARS AGO. Denies: Hx Hepatitis, Hx Hiatal Hernia Psychiatric Medical History: Reports: Hx Depression Infectious Medical History: Denies: Hx Hepatitis Past Surgical History: Reports: Hx Appendectomy, Hx Cardiac Catheterization - 1 stent, Hx Coronary Stent, Hx Orthopedic Surgery - shoulder, knee, elbow. De nies: Hx Open Heart Surgery, Hx Pacemaker - Immunizations Hx Diphtheria, Pertussis, Tetanus Vaccination: Yes Hx Pneumococcal Vaccination: 09/11/12 Review of Systems - Review of Systems Notes: Review of systems as below unless otherwise stated in HPI. CONSTITUTIONAL [No] fever, [No] chills. EYES [No] eye pain. ENT [No] URI symptoms, [No] sore throat, [No] ear pain. CARDIOVASCULAR [No] chest pain, [No] palpitations, [No] edema. RESPIRATORY [No] Cough, [No] SOB, [No] wheezing. GASTROINTESTINAL [No] abdominal pain, [No] nausea, [No] Diarrhea, [No] Vomiting, [No] constipation, [No] melena, [No] rectal bleeding. GENITOURINARY [No] dysuria, [No] urinary frequency, [No] hematuria, [No] urinary urgency, positive flank pain MUSCULOSKELETAL [No] Back pain. SKIN [No] Rash. NEUROLOGIC [No] Headache, [No] recent seizures, [No] paralysis,[No] parathesias. ENDOCRINE [No] polyuria. HEMO/LYMPATIC [No] easy brusing PSYCHIATRIC [No] depression. Physical Exam - Vital signs Vitals: Pulse Resp BP Pulse Ox 58 L 18 109/56 L 100 09/29/20 05:36 09/29/20 05:36 09/29/20 05:36 09/29/20 05:36 - Notes Notes: CONSTITUTIONAL [Vital signs reviewed, Patient appears comfortable, Alert and oriented X 3, Normal stature.] HEAD [Atraumatic, Normocephalic.] EYES [Eyes are normal to inspection, No discharge from eyes, Extraocular muscles intact, Sclera are normal, Conjunctiva are normal.] ENT [External ears normal to inspection, Nose examination normal, Mouth normal to inspection.] NECK [Normal ROM, No jugular venous distention, No meningeal signs, ] RESPIRATORY CHEST [Chest is nontender, Breath sounds normal, No respiratory distress.] CARDIOVASCULAR [RRR, No murmurs, Normal S1 S2, No rub, No gallop.] ABDOMEN [Abdomen is nontender, No pulsatile masses, No other masses, Bowel sounds normal, No distension, No peritoneal signs, No hernias.] BACK [There is right-sided CVA Tenderness to palpation, Normal inspection.] UPPER EXTREMITY [Inspection normal, No cyanosis, No clubbing, No edema, LOWER EXTREMITY [Inspection normal, No cyanosis, No clubbing, No edema, No calf tenderness, NEURO [No focal motor deficits, No focal sensory deficits, Speech normal.] SKIN [Skin is warm, Skin is dry, Skin is normal color.] PSYCHIATRIC [Normal affect. ] Course - Re-evaluation Re-evalutation: 09/29/20 03:00 Differential diagnosis: Kidney stone, pyelonephritis, UTI, AAA, muscle strain, pneumonia, diverticulitis 09/29/20 05:53 Patient states he is feeling better this time except for some heartburn. Results of ED MSE discussed with patient. All questions were answered prior to discharge. Emergency signs and symptoms, reasons to return to the emergency department discussed with patient. - Vital Signs Vital signs: Temp Pulse Resp BP Pulse Ox 58 L 18 109/56 L 100 09/29/20 05:36 09/29/20 05:36 09/29/20 05:36 09/29/20 05:36 - Laboratory Results Result Diagrams: 09/29/20 01:40 09/29/20 01:40 Laboratory Results Interpreted: 09/29/20 09/29/20 01:40 01:40 WBC 10.6 H RBC 4.31 L Hgb 12.4 L RDW 14.3 H Chloride 111 H BUN 25 H Critical Laboratory Results Reviewed: No Critical Results Attending or Supervising Physician who Reviewed Labs: HOMERO ELENA IV - Radiology Results Critical Radiology Results Reviewed: Yes Attending or Supervising Physician who Reviewed Radiology: HOMERO ELENA IV - 9 mm ureteral calculus present at right distal ureter near right UVJ. No hydronephrosis is noted. Discharge - Discharge Clinical Impression: Right ureteral stone Condition: Stable Disposition: HOME, SELF-CARE Additional Instructions: Return to the Emergency Department without delay if any worse. HOME CARE INSTRUCTIONS & INFORMATION: Thank you for choosing us for your medical needs. We hope you're satisfied with the care you received. After you leave, you must properly care for your problem and, at the same time, observe its progress. Any condition can change. Some illnesses can change rapidly over hours or days. If your condition worsens, return to the Emergency Department or see your physician promptly. ABOUT YOUR X-RAYS AND EKG'S: If you had an EKG or X-rays taken, they have been read by the Emergency Physician. The X-rays and EKG's will also be read by a Radiologist or Manager Billing within 24 hours. If discrepancies are noted, you will be notified by telephone. Please be certain the ED has a correct telephone number & address where you can be reached. Also, realize that some fractures or abnormalities do not show up on initial X-rays. If your symptoms continue, see your physician. ABOUT YOUR LABORATORY TEST: If you had laboratory tests, the results have been reviewed by the Emergency Physician. Some test results (for example cultures) may not be available for several days. You will be contacted if any test result shows you need additional treatment. Please be certain the ED has a correct telephone number and address where you can be reached. ABOUT YOUR MEDICATIONS: You will receive instructions on how to take your medicine on the prescription label you receive. Additional information may be provided by the Pharmacy. If you have questions afterwards, call the ED for clarification or further instructions. Some prescribed medications may cause drowsiness. Do not perform tasks such as driving a car or operating machinery without consulting your Pharmacist. If you feel you need a refill of pain medication, your condition will need re-evaluation. Please do not call for a refill of any medication. ABOUT YOUR SIGNATURE: Signature of this document acknowledges to followin. Understanding that you received emergency treatment and that you may be released before al medical problems are known or treated. Please be certain the ED has a correct phone number & address where you can be reached. 2. Acknowledgement that you will arrange for follow-up care as recommended. 3. Authorization for the Emergency Physician to provide information to your follow-up Physician in order to maximize your care. AT ANY TIME, IF YOUR SYMPTOMS CHANGE SIGNIFICANTLY OR WORSEN OR YOU DEVELOP NEW SYMPTOMS, RETURN TO THE EMERGENCY DEPARTMENT IMMEDIATELY FOR RE-EVALUATION. OUR GOAL IS TO PROVIDE EXCELLENT MEDICAL CARE! WE HOPE THAT WE HAVE MET YOUR EXPECTATIONS DURING YOUR EMERGENCY DEPARTMENT VISIT AND THAT YOU FEEL YOU HAVE RECEIVED EXCELLENT CARE! Kidney Stone You are passing or have passed a kidney stone. These stones are usually due to increased calcium or uric acid concentrations in your urine. Stones within the kidney itself are not painful. The pain occurs as the stone leaves the kidney to pass down the long tube, called the ureter, leading to the bladder. If the stone is small, it will usually pass by itself. Most patients can pass the stone at home. You will usually receive medications for pain, nausea or vomiting, and sometimes a medication to assist in passing the kidney stone. However, if the pain is very severe or if vomiting prevents you from taking oral pain medications, you may need to return for further treatment. Drink three or four quarts of fluids per day. You will be given pain medication (if needed) and urine strainers. Strain all your urine to see if the stone passes. If your doctor has asked you to bring the stone in for analysis, return with the stone once it has passed. Return if pain or vomiting become severe, if you develop a high fever, if you are unable to pass your urine, or if other unusual symptoms occur. Prescriptions: Hydrocodone/Acetaminophen [[place] 5-325 mg Tablet] 1 tab PO Q6HP PRN #20 tablet PRN Reason: Forms: Return to Work Referrals: Tanika KIRK MD [Primary Care Provider] - Follow up as needed EDWIGE SWAIN MD [NO LOCAL MD] - Follow up as needed (Call on 10/01/2020 to schedule follow-up appointment.)
--- NOTE | 2020-09-29 04:09 | RADIOLOGY REPORT (SQ) ---
CT abdomen and pelvis without contrast on 09/29/2020 at 3:13 AM CLINICAL INDICATION: Right-sided back pain, history of kidney stones TECHNIQUE: Multiple axial images are obtained throughout the abdomen and pelvis without the administration of contrast. This exam was performed according to our departmental dose-optimization program, which includes automated exposure control, adjustment of the mA and/or kV according to patient size and/or use of iterative reconstruction technique. Total DLP is 850.16 mGy*cm. COMPARISON: 01/25/2019 FINDINGS: Abdomen: There is slight elevation of the left hemidiaphragm. There is minimal basilar atelectasis or scarring. The lung bases are otherwise clear. Mild coronary artery calcifications and other vascular calcifications are noted. There are a few tiny nonobstructing bilateral renal stones. Left renal cyst is noted. There is no significant right hydronephrosis or hydroureter but there is a 9 mm right distal ureteral stone in the right distal ureter just above the right UVJ. Stone is seen well on axial image 75 and coronal image 80. There are no other ureteral stones. The unenhanced solid abdominal organs are otherwise unremarkable. There is no abdominal adenopathy. 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 There is no free fluid or free air within the abdomen. The abdominal portion of the GI tract is unremarkable. Pelvis: There is mild diverticulosis. There is no free fluid in the pelvis. There is no pelvic adenopathy. The appendix is not definitely visualized but no pericecal inflammatory changes are noted. The pelvic portion of the GI tract is otherwise unremarkable. Degenerative changes are noted in the spine. No acute bony abnormality is noted. IMPRESSION: 1. No significant right hydronephrosis or hydroureter but there is a 9 mm right distal ureteral stone just above the right UVJ. 2. Tiny nonobstructing bilateral renal stones. 3. Mild diverticulosis.
[2020-09-29] MEDS ORDERED: FAMOTIDINE 20 MG TABLET PO ONE (05:51)
[2020-09-29] MEDS ORDERED: HYDROCODONE/ACETAMINOPHEN 5-325 MG (6 TAB/ER DISP) PO PRN (05:52)
[2020-09-29 09:35] VITALS: BP 106/58
== END 2020-09-29 09:37 | disposition home or self-care (01) ==
LOC: ER 00:44
DX: N20.2 Calculus of kidney with calculus of ureter (principal); K57.90 Diverticulosis of intestine, part unspecified, without perforation or abscess without bleeding; R10.9 Unspecified abdominal pain; R12 Heartburn; I25.10 Atherosclerotic heart disease of native coronary artery without angina pectoris; I10 Essential (primary) hypertension; E11.9 Type 2 diabetes mellitus without complications; Z87.892 Personal history of anaphylaxis; Z88.6 Allergy status to analgesic agent; Z88.5 Allergy status to narcotic agent; Z88.8 Allergy status to other drugs, medicaments and biological substances; Z91.018 Allergy to other foods
CPT/HCPCS: 99285; 96374; 96375; 36415; 83690; 85025; 80053; 81001; 74176; J1885; J1170; J2550

== ENCOUNTER → 2020-10-19 | Outpatient (CLI) | payer BC ==
--- NOTE | 2020-10-19 10:31 | RADIOLOGY REPORT (SQ) ---
EXAM DESCRIPTION: KUB/ABDOMEN (SINGLE VIEW) IMAGES COMPLETED DATE/TIME: 10/19/2020 9:21 am REASON FOR STUDY: (N20.0)CALCULUS OF KIDNEY N20.0 CALCULUS OF KIDNEY COMPARISON: None. NUMBER OF VIEWS: One view. TECHNIQUE: Supine radiographic image of the abdomen acquired. LIMITATIONS: None. FINDINGS: BOWEL GAS PATTERN: Normal bowel gas pattern. No dilated loops. CALCIFICATIONS: No definitive renal stones. Calcific densities overlie pelvis, likely phleboliths. Additional calcific density at the expected location of the right distal ureter measuring 9 mm, possi freddy distal ureteral stone. SOFT TISSUES: No gross mass or suggestion of organomegaly. HARDWARE: None in the abdomen. BONES: Lower lumbar spondylosis. OTHER: No other significant finding. IMPRESSION: No evidence of acute intra-abdominal process. Calcific densities overlie pelvis, likely phleboliths. 9 mm calcific density in the region of the di stal right ureter, possibly distal ureteral stone or phlebolith. Findings similar to prior CT. TECHNICAL DOCUMENTATION: JOB ID: [id number] [employer]- All Rights Reserved Reading location - IP/workstation name: [email or web address]
== END ==
LOC: RAD 08:56
PROVIDERS: ATTEND Urology
DX: N20.0 Calculus of kidney (principal); R39.12 Poor urinary stream
CPT/HCPCS: 74018

== ENCOUNTER → 2020-10-19 | Outpatient (CLI) | payer BC | LOC: EMPHEALTH 09:20 | PROVIDERS: ATTEND Internal Medicine | DX: Z23 Encounter for immunization (principal) | CPT/HCPCS: 91300 ==

== ENCOUNTER 2020-10-22 11:23 | Observation (INO) | payer BC ==
--- NOTE | 2020-10-22 11:41 | ER Document Report ---
ED Medical Screen (RME) - General Chief Complaint: S/S of Possible Stroke Stated Complaint: POSSIBLE STROKE SYMPTOMS Time Seen by Provider: 10/22/20 11:30 Primary Care Provider: GIBSON AGUILAR MD [Primary Care Provider] - Follow up as needed Notes: HPI: 65-year-old male presenting with stroke symptoms. Patient was at lunch with family at approximately 1:15 PM yesterday had sudden onset of midline significant head pressure that lasted for an hour and does continue today still. States it is less today than it was yesterday. Patient felt at the time that he may have had some drooping of his face and some slurred speech. No chest pain or shortness of breath. Patient reports some weakness in the right arm, vision change in the right eye. Does not feel like his speech is slurred today. PHYSICAL EXAMINATION: Patient speech is not slurred there is no facial droop noted. Sensation is intact and equal bilateral forehead cheeks and mandible. Patient reports more sensitivity to touch in the right upper extremity versus the left but no change in sensation in the bilateral lower extremities. Patient asphalt layer appear equal, strength appears equal 5/5 lower extremities as well. Lung sounds are clear to auscultation regular rate and rhythm I have greeted and performed a rapid initial assessment of this patient. A comprehensive ED assessment and evaluation of the patient, analysis of test results and completion of medical decision making process will be conducted by an additional ED providers. Please note that clinical decision making for this patient was made during the 2019 pandemic of novel coronavirus which caused a significant strain on the healthcare system including at this particular facility. Criteria for admission discharge and level of care decisions as well as treatment decisions have necessarily changed TRAVEL OUTSIDE OF THE [place] IN LAST 30 DAYS: No - Related Data Allergies/Adverse Reactions: butorphanol tartrate [From Stadol] Allergy (Severe, Verified 10/22/20 11:31) Anaphylaxis pseudoephedrine HCl [From Sudafed] Allergy (Intermediate, Verified 10/22/20 11:31) Hives triprolidine HCl [From Actifed] Allergy (Intermediate, Verified 10/22/20 11:31) Hives nalbuphine HCl [From Nubain] Allergy (Unknown, Verified 10/22/20 11:31) Anaphylaxis TOMATO Allergy (Intermediate, Uncoded 10/22/20 11:31) Hives Past Medical History - Social History Chew tobacco use (# tins/day): No Frequency of alcohol use: None Drug Abuse: None - Past Medical History Cardiac Medical History: Reports: Hx Coronary Artery Disease, Hx Hypercholesterolemia, Hx Hypertension - MEDICATED Denies: Hx Heart Attack Pulmonary Medical History: Denies: Hx Asthma, Hx Tuberculosis Neurological Medical History: Denies: Hx Cerebrovascular Accident, Hx Seizures Endocrine Medical History: Reports: Hx Diabetes Mellitus Type 2 Renal/ Medical History: Reports: Hx Kidney Stones. Denies: Hx Peritoneal Dialysis GI Medical History: Reports: Hx Gastroesophageal Reflux Disease, Hx Ulcer - YEARS AGO. Denies: Hx Hepatitis, Hx Hiatal Hernia Psychiatric Medical History: Reports: Hx Depression Infectious Medical History: Denies: Hx Hepatitis Past Surgical History: Reports: Hx Appendectomy, Hx Cardiac Catheterization - 1 stent, Hx Coronary Stent, Hx Orthopedic Surgery - shoulder, knee, elbow. Denies: Hx Open Heart Surgery, Hx Pacemaker - Immunizations Hx Diphtheria, Pertussis, Tetanus Vaccination: Yes Physical Exam - Vital signs Vitals: Temp Pulse Resp BP Pulse Ox 98.1 F 72 16 165/80 H 100 10/22/20 11:31 10/22/20 11:31 10/22/20 11:31 10/22/20 11:31 10/22/20 11:31 Course - Vital Signs Vital signs: Temp Pulse Resp BP Pulse Ox 98.1 F 72 16 165/80 H 100 10/22/20 11:31 10/22/20 11:31 10/22/20 11:31 10/22/20 11:31 10/22/20 11:31 Doctor's Discharge - Discharge Referrals: GIBSON AGUILAR MD [Primary Care Provider] - Follow up as needed
--- NOTE | 2020-10-22 12:07 | RADIOLOGY REPORT (SQ) ---
EXAM DESCRIPTION: CT HEAD WITHOUT IMAGES COMPLETED DATE/TIME: 10/22/2020 11:45 am REASON FOR STUDY: stroke sx COMPARISON: CT of the head without contrast from 04/05/2020. TECHNIQUE: Axial images acquired through the brain without intravenous contrast. Images reviewed wi th bone, brain and subdural windows. Additional sagittal and coronal reconstructions were generated. Images stored on PACS. All CT scanners at this facility use dose modulation, iterative reconstruction, and/or weight based d osing when appropriate to reduce radiation dose to as low as reasonably achievable (ALARA). [facility]: Dose Right [facility]: CareDose [facility]: Dose Right [facility]: Teradose 4D [facility]: [employer] RADIATION DOSE: CT Rad equipment meets quality standard of care and radiation dose reduction techniq ues were employed. CTDIvol: 53.2 mGy. DLP: 1044 mGy-cm. LIMITATIONS: None. FINDINGS: There is no acute intracranial hemorrhage, vascular territorial infarct, extra-axial fluid collection, mass effect or midline shift. The hamlin-white matter differentiation is preserved. The caliber of the ventricles is concordant with the degree of sulcation. There is no effacement of the cerebral sulci or basal subarachnoid cisterns. The orbits and globes are intact. The paranasal sinuses and the mastoids air cells are clear. There is no fracture of the calvarium. IMPRESSION: No acute intracranial abnormality. EVIDENCE OF ACUTE STROKE: NO. COMMENT: Quality ID # [id number]: Final reports with documentation of one or more dose reduction techniques (e.g., Automated exposure control, adjustment of the mA and/or kV according to patient size, use of iterative reconstruction technique) TECHNICAL DOCUMENTATION: JOB ID: [id number] [employer]- All Rights Reserved Reading location - IP/workstation name: [email or web address]
[2020-10-22 12:14] LABS: ABSOLUTE EOSINOPHILS # (AUTO) 0.2 10^3/uL (0.0-0.6); ABSOLUTE LYMPHOCYTES (AUTO) 1.3 10^3/uL (0.5-4.7); ABSOLUTE MONOCYTES (AUTO) 0.6 10^3/uL (0.1-1.4); ABSOLUTE NEUT (AUTO) 2.5 10^3/uL (1.7-8.2); BASOPHILS % (AUTO) 1.1 % (0-2); EOSINOPHILS % (AUTO) 3.7 % (0-6); HEMOGLOBIN 11.8 g/dL (13.5-17.0); LYMPHOCYTES % (AUTO) 28.4 % (13-45); MEAN CORPUSCULAR HEMOGLOBIN 27.9 pg (27.0-33.4); MEAN CORPUSCULAR HGB CONC 32.9 g/dL (32.0-36.0); MEAN CORPUSCULAR VOLUME 85 fl (80-97); MONOCYTES % (AUTO) 12.9 % (3-13); PLATELET COUNT 248 10^3/uL (150-450); RED BLOOD COUNT 4.25 10^6/uL (4.35-5.55); RED CELL DISTRIBUTION WIDTH 15.1 % (11.5-14.0); SEGMENTED NEUTROPHILS % (AUTO) 53.9 % (42-78); TOTAL CELLS COUNTED % (AUTO) 100 %; WHITE BLOOD COUNT 4.5 10^3/uL (4.0-10.5)
[2020-10-22 12:17] LABS: INTERNATIONAL RATION (INR) 0.98; PROTHROMBIN TIME 13.2 SEC (11.4-15.4)
[2020-10-22 12:18] LABS: PARTIAL THROMBOPLASTIN TIME 28.6 SEC (23.5-35.8)
--- NOTE | 2020-10-22 12:26 | RADIOLOGY REPORT (SQ) ---
EXAM DESCRIPTION: CHEST SINGLE VIEW IMAGES COMPLETED DATE/TIME: 10/22/2020 12:15 pm REASON FOR STUDY: stroke sx COMPARISON: AP view of the chest from 02/09/2020. EXAM PARAMETERS: NUMBER OF VIEWS: One view. TECHNIQUE: An AP view of the chest was obtained. RADIATION DOSE: NA LIMITATIONS: None. FINDINGS: LUNGS AND PLEURA: No consolidation, pleural effusion or pneumothorax. MEDIASTINUM AND HILAR STRUCTURES: No mediastinal or hilar contour abnormality. HEART AND VASCULAR STRUCTURES: The cardiac silhouette and pulmonary vasculature are within normal [place] its. BONES: No acute findings. HARDWARE: Surgical screw in the right scapula. OTHER: No other finding. IMPRESSION: No acute cardiopulmonary process. TECHNICAL DOCUMENTATION: JOB ID: [id number] 2010 [employer]- All Rights Reserved Reading location - IP/workstation name: [email or web address]
[2020-10-22 12:31] LABS: ALBUMIN 4.1 g/dL (3.5-5.0); ALKALINE PHOSPHATASE 109 U/L (38-126); ANION GAP 8 (5-19); ASPARTATE AMINO TRANSFERASE 37 U/L (17-59); BILIRUBIN,DIRECT 0.3 mg/dL (0.0-0.4); BILIRUBIN,TOTAL 0.4 mg/dL (0.2-1.3); BLOOD UREA NITROGEN 17 mg/dL (7-20); CALCIUM 9.1 mg/dL (8.4-10.2); CARBON DIOXIDE 26 mmol/L (22-30); CHLORIDE 109 mmol/L (98-107); CREATINE KINASE 282 U/L (55-170); GLUCOSE 114 mg/dL (75-110); POTASSIUM 4.3 mmol/L (3.6-5.0); TOTAL PROTEIN 6.9 g/dL (6.3-8.2)
[2020-10-22 12:43] LABS: CREATINE KINASE MB 5.36 ng/mL (<4.55)
[2020-10-22 12:44] LABS: TROPONIN I < 0.012 ng/mL
[2020-10-22] MEDS ORDERED: ACETAMINOPHEN 325 MG TABLET PO ONE (13:34)
[2020-10-22] MEDS ORDERED: NORMAL SALINE 1000 ML 1,000 ML IV ONE (13:34)
--- NOTE | 2020-10-22 13:43 | ER Document Report ---
ED Neuro Symptoms/Deficit - General Chief Complaint: S/S of Possible Stroke Stated Complaint: POSSIBLE STROKE SYMPTOMS Time Seen by Provider: 10/22/20 11:30 TRAVEL OUTSIDE OF THE [place] IN LAST 30 DAYS: No - HPI Notes: Patient is a 65-year-old male with a past medical history of cardiac stent placement on Plavix and aspirin, hypertension, diabetes who presents with stroke like symptoms. Patient states he was eating lunch yesterday around noon when he developed a pressure-like pain in his head. He states that he felt that he had a left-sided facial droop. He also thought that he was slurring his words and has been leaning to the right when he walks. Patient has taken Percocet and ibuprofen for the headache with minimal relief. He states that today, his headache is more over the left samaritan. He states it is worse with light. Patient states he has had a headache like this before in the past. He denies any chest pain or shortness of breath. No vomiting. - Related Data Allergies/Adverse Reactions: butorphanol tartrate [From Stadol] Allergy (Severe, Verified 10/22/20 11:31) Anaphylaxis pseudoephedrine HCl [From Sudafed] Allergy (Intermediate, Verified 10/22/20 11:31) Hives triprolidine HCl [From Actifed] Allergy (Intermediate, Verified 10/22/20 11:31) Hives nalbuphine HCl [From Nubain] Allergy (Unknown, Verified 10/22/20 11:31) Anaphylaxis TOMATO Allergy (Intermediate, Uncoded 10/22/20 11:31) Hives Past Medical History - General Information source: Patient - Social History Smoking Status: Former Smoker Chew tobacco use (# tins/day): No Frequency of alcohol use: None Drug Abuse: None Family History: Reviewed & Not Pertinent, DM, Hypertension Patient has homicidal ideation: No - Past Medical History Cardiac Medical History: Reports: Hx Coronary Artery Disease, Hx Hypercholesterolemia, Hx Hypertension - MEDICATED Denies: Hx Heart Attack Pulmonary Medical History: Denies: Hx Asthma, Hx Tuberculosis Neurological Medical History: Denies: Hx Cerebrovascular Accident, Hx Seizures Endocrine Medical History: Reports: Hx Diabetes Mellitus Type 2 Renal/ Medical History: Reports: Hx Kidney Stones. Denies: Hx Peritoneal Dialysis GI Medical History: Reports: Hx Gastroesophageal Reflux Disease, Hx Ulcer - YEARS AGO. Denies: Hx Hepatitis, Hx Hiatal Hernia Psychiatric Medical History: Reports: Hx Depression Infectious Medical History: Denies: Hx Hepatitis Past Surgical History: Reports: Hx Appendectomy, Hx Cardiac Catheterization - 1 stent, Hx Coronary Stent, Hx Orthopedic Surgery - shoulder, knee, elbow. Denies: Hx Open Heart Surgery, Hx Pacemaker - Immunizations Hx Diphtheria, Pertussis, Tetanus Vaccination: Yes Hx Pneumococcal Vaccination: 09/11/12 Review of Systems - Review of Systems Notes: CONSTITUTIONAL: No fever, fatigue or weight loss. SKIN: No rash. HENT: No congestion, ear pain, or sore throat. EYES: Positive for blurry vision. CARDIOVASCULAR: No chest pain or edema. RESPIRATORY: No cough, shortness of breath, congestion, or wheezing. GASTROINTESTINAL: No abdominal pain, nausea, vomiting MUSCULOSKELETAL: No joint pain or swelling. NEUROLOGIC: No seizures. Positive for headache. No focal weakness. HEMATOLOGIC: No unusual bruising or bleeding. PSYCHIATRIC: No depression or anxiety. Physical Exam - Vital signs Vitals: Temp Pulse Resp BP Pulse Ox 98.1 F 72 16 165/80 H 100 10/22/20 11:31 10/22/20 11:31 10/22/20 11:31 10/22/20 11:31 10/22/20 11:31 - General General appearance: Appears well In distress: None Notes: VITAL SIGNS: Within normal limits. GENERAL: No acute distress, non-toxic appearance. HEAD: Normal with no signs of head trauma. Discomfort to palpation of left samaritan. EYES: EOMI, conjunctiva normal, no discharge. EARS: Hearing grossly intact. NOSE: Normal. NECK: Normal range of motion, no tenderness, supple CHEST: Clear breath sounds bilaterally. No wheezes, rales, or rhonchi. CARDIAC: Regular rate and rhythm. VASCULAR: Trace lower extremity edema bilaterally. ABDOMEN: Normal and soft with no tenderness MUSCULOSKELETAL: Good range of motion of all major joints. Extremities without clubbing, cyanosis or edema. NEUROLOGICAL: Alert and oriented x 3. No strength deficits, strength 5/5 bilaterally. Sensation intact bilaterally. Mild left sided facial droop, unsure of baseline. PSYCHIATRIC: Normal Affect, judgement and mood. SKIN: Normal appearance with no rashes or lesions. Course - Re-evaluation Re-evalutation: 10/22/20 15:25 I ambulated patient and he ambulated with a steady gait but states he feels like there is a subtle lean to the right. Patient CTA showed a 50% stenosis of the left internal carotid artery. I will discuss with [facility] Camejo neurology. I dis cussed with neurology and they stated that this is likely an incidental finding and not the cause of his symptoms. They just recommended a stroke work-up at our facility. I discussed all this with the patient. He is in agreement to the admission. His NIH is 1. Patient is not a TPA candidate as his symptoms started yesterday and he is outside the window and his NIH score is low. I discussed with the hospitalist who will admit the patient. 10/22/20 20:37 - Vital Signs Vital signs: Temp Pulse Resp BP Pulse Ox 98.1 F 72 16 165/80 H 100 10/22/20 11:31 10/22/20 12:12 10/22/20 12:12 10/22/20 12:12 10/22/20 12:12 - Laboratory Results Result Diagrams: 10/22/20 12:00 10/22/20 12:00 Laboratory Results Interpreted: 10/22/20 10/22/20 10/22/20 12:00 12:00 12:00 RBC 4.25 L Hgb 11.8 L Hct 36.0 L RDW 15.1 H Chloride 109 H Glucose 114 H Creatine Kinase 282 H CK-MB (CK-2) 5.36 H Critical Laboratory Results Reviewed: No Critical Results - Radiology Results Critical Radiology Results Reviewed: No Critical Results - EKG Interpretation by Me EKG shows normal: Sinus rhythm Rate: Normal Rhythm: NSR When compared to previous EKG there are: No significant change Additional EKG results interpreted by me: 10/22/20 14:09 Sinus rhythm at a rate of 72. QTc 408. No acute ST changes. EKG is similar to previous. ED NIH Stroke Scale - NIH Stroke Scale When completed:: Protocol *: 1. NIH scale should be completed with appropriate accompanying assessment tools. *: 2. The NIH should reflect what the patient is capable of doing and should not be coached by the clinician. 1a. Level of Consciousness: 0=Alert;keenly responsive -: 1=Drowsy -: 2=Obtunded -: 3=Coma/unresponsive or reflex to noxious stimuli. 1a. Responses: 0 1b. Orientation Questions: a. What month is it? -: b. How old are you? -: 0=Answers both questions correctly. -: 1=Answers one question correctly or patient is intubated or has orotracheal trauma. -: 2=Answers neither question correctly. 1b. Responses: 0 1c. Response to commands: a. Open and close eyes? -: b. Geological E Logger and release hand? -: Credit is given despite weakness. Demonstration of task is permitted. Substitute command if hands cannot be used. -: 0=Performs both tasks correctly -: 1=Performs one task correctly -: 2=Performs neither task correctly 1c. Responses: 0 2. Gaze: Establish eye contact and instruct patient to "Follow my finger" -: 0=Normal -: 1=Partial gaze palsy. Gaze is abnormal in one or both eyes, but where forced deviation or total gaze paresis is not present. -: 2=Forced deviation or total gaze paresis. 2. Responses: 0 3. Visual Mckinney: Sees fingers in all four quadrants. -: 0=No visual loss. -: 1=Partial hemianopsia. -: 2=Complete hemianopsia. -: 3=Bilateral hemianopsia (including Cortical blindness) 3. Responses: 0 4. Facial Movement: Instruct patient to: -: a. Show me your teeth -: b. Raise your eyebrows -: c. Close your eyes -: d. Smile -: 0=Normal symmetrical movement -: 1=Minor paralysis (flattened nasolabial fold, asymmetry on smiling). -: 2=Partial paralysis (total or near total paralysis of lower face). -: 3=Complete paralysis of upper and lower face 4. Responses: 1 5. Motor functions (left arm): Alternate sides and extend each arm with palms down (90 degrees if sitting or 45 degrees for supine). -: 0=No drift;limb holds for full 10 seconds. -: 1=Drift; limb holds but drifts down before full 10 seconds, but does not hit bed. -: 2=Some effort against gravity; limb cannot get to or maintain position. -: 3=No effort against gravity; limb falls. -: 4=No movement. -: UN=Amputation, joint fusion, explain in comments. 5. Responses (left arm): 0 5. Motor Functions (right arm): Alternate sides and extend each arm with palms down (90 degrees if sitting or 45 degrees for supine). -: 0=No drift;limb holds for full 10 seconds. -: 1=Drift; limb holds but drifts down before full 10 seconds, but does not hit bed. -: 2=Some effort against gravity; limb cannot get to or maintain position. -: 3=No effort against gravity; limb falls. -: 4=No movement. -: UN=Amputation, joint fusion, explain in comments. 5. Responses (right arm): 0 6. Motor Functions (left leg): With patient lying supine, alternate sides and extend each leg (30 degrees always while supine). -: 0=No drift, leg holds position for full 5 seconds -: 1=Drift; leg falls before full 5 seconds but does not hit bed. -: 2=Some effort against gravity, leg falls to bed but some effort against gravity. -: 3=No effort against gravity, leg falls to bed immediately. -: 4=No movement. -: UN=Amputation, joint fusion; explain in comments. 6. Responses (left leg): 0 6. Motor Functions (right leg): With patient lying supine, alternate sides and extend each leg (30 degrees always while supine). -: 0=No drift, leg holds position for full 5 seconds -: 1=Drift; leg falls before full 5 seconds but does not hit bed. -: 2=Some effort against gravity, leg falls to bed but some effort against gravi ty. -: 3=No effort against gravity, leg falls to bed immediately. -: 4=No movement. -: UN=Amputation, joint fusion; explain in comments. 6. Responses (right leg): 0 7. Limb Ataxia: With eyes open instruct patient to: -: a. "Touch your finger to your nose". -: b. "Touch your heel to your ma" -: 0=Absent -: 1=Present in one limb. -: 2=Present in two limbs. -: UN=Amputation or joint fusion; explain in comments. 7. Responses: 0 8. Sensory: Test sensation using pinprick or noxious stimuli. Test as many body parts as possible. -: 0=Normal;no sensory loss -: 1=Mile to moderate sensory loss (patient feels pin prick but is less sharp on affected side). -: 2=Severe or total sensory loss. 8. Responses: 0 9. Best Language: Instruct patient to: -: a. "Describe what you see in this picture." -: b. "Name the items in this picture." -: c. "Read these sentences." -: 0=No aphasia, normal -: 1=Mild to moderate aphasia. -: 2=Severe aphasia -: 3=Mute, global aphasia, no usable speech or auditory comprehension. 9. Responses: 0 10. Articulation, Dysarthia: Instruct patient to: -: "Read these words" or "Repeat these words" -: 0=Normal -: 1=Mild to moderate; patient may slur some words but can be understood without difficulty. -: 2=Severe; patients speech so slurred as to be unintelligible in the absence of dysphasia. -: UN=Intubated or other physical barrier, explain in comments. 10. Responses: 0 11. Extinction or inattention: 0=No abnormality -: 1= Visual, tactile, auditory, spatial, or personal inattention or extinction to bilateral simulation in one or the sensory modalities. -: 2=Profound nkechi-inattention or nkechi-inattention to more than one modality; does not recognize own hand. 11. Responses: 0 Total Score: 1 Discharge - Discharge Clinical Impression: Stroke-like symptoms Condition: Stable Disposition: ADMITTED INPATIENT Admitting Provider: Amy (Hospitalist) Unit Admitted: DEANDRE
--- NOTE | 2020-10-22 14:51 | RADIOLOGY REPORT (SQ) ---
EXAM DESCRIPTION: CTA NECK IMAGES COMPLETED DATE/TIME: 10/22/2020 2:26 pm REASON FOR STUDY: stroke like symptoms COMPARISON: CT of the head without contrast from 10/22/2019. TECHNIQUE: Axial dynamic scanning technique with dynamic contrast enhancement through the extra-crab catcher nial carotid and vertebral arteries. Multiplanar reconstruction. 3-D MIPS and Volume-rendered imag es acquired at the workstation and saved to PACS. Images are reviewed in soft tissue, bone, lung w indows. All CT scanners at this facility use dose modulation, iterative reconstruction, and/or weight based d osing when appropriate to reduce radiation dose to as low as reasonably achievable (ALARA). [facility]: Dose Right [facility]: CareDose [facility]: Dose Right [facility]: Teradose 4D [facility]: mLED CONTRAST TYPE AND DOSE: 70 mL Omnipaque 350- low osmolar. RENAL FUNCTION: Creatinine 1.08 milligrams/deciliter. LIMITATIONS: None. FINDINGS: AORTIC ARCH: There is a variant 4 vessel arch with a direct origin of the left vertebral a rtery from the arch. The origins of the brachiocephalic, left common carotid, left subclavian and le ft vertebral arteries are patent. There is no dissection of the aortic arch. RIGHT CAROTIDS: There are eccentric calcified atheromatous plaques at the carotid bifurcation. There is no dissection, high-grade stenosis or aneurysm of the carotid arteries. RIGHT VERTEBRAL: Patent. LEFT CAROTIDS: There are eccentric calcified atheromatous plaques at the origin of the internal carot id artery that result in a 50% stenosis. LEFT VERTEBRAL: Patent. OTHER: No other finding. OTHER: 3-D reconstructions confirm findings. IMPRESSION: 1. 50% stenosis of the proximal left internal carotid artery. 2. 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 COMMENT: Quality ID #[id number]: Measurements of distal internal carotid diameter were used as the denomina tor for stenosis measurement. TECHNICAL DOCUMENTATION: JOB ID: [id number] Quality ID # [id number]: Final reports with documentation of one or more dose reduction techniques (e.g., Au tomated exposure control, adjustment of the mA and/or kV according to patient size, use of iterative reconstruction technique) 2010 [employer]- All Rights Reserved Reading location - IP/workstation name: [email or web address]
--- NOTE | 2020-10-22 15:07 | RADIOLOGY REPORT (SQ) ---
EXAM DESCRIPTION: CTA HEAD IMAGES COMPLETED DATE/TIME: 10/22/2020 2:25 pm REASON FOR STUDY: stroke like symptoms COMPARISON: None. TECHNIQUE: Post IV contrast scanning, thin section axial imaging through the brain to evaluate the a rterial structures. Source and MIP images are saved and reviewed on PACS. Advanced 3D imaging as volume-rendering, MIPs, SSD performed? yes All CT scanners at this facility use dose modulation, iterative reconstruction, and/or weight based d osing when appropriate to reduce radiation dose to as low as reasonably achievable (ALARA). [facility]: Dose Right [facility]: CareDose [facility]: Dose Right [facility]: Teradose 4D [facility]: Prizzm CONTRAST TYPE AND DOSE: Contrast/concentration: Isovue 350.00 mmol/ml; Total Contrast Delivered: 70. 0 ml; Total Saline Delivered: 64.8 ml RENAL FUNCTION: Creatinine 1.08 milligrams/deciliter. LIMITATIONS: None. FINDINGS: MOHEGAN OF CAT: The intracranial segments of the ICAs are patent. The anterior communic ating artery is also patent. There is no aneurysm, stenosis or distal branch occlusion of the ACAs a nd MCAs. POSTERIOR CIRCULATION: The basilar artery is patent. There is a variant origin of the left [employer] . The arborization pattern in the distribution of the general counselor is symmetric. There is no distal branch occlusion. BRAIN: There is no pathologic intracranial enhancement. BONES: Intact. SINUSES: No air-fluid level of mucoperiosteal thickening. OTHER: No other findings. IMPRESSION: No abnormality of the intracranial arterial vasculature. TECHNICAL DOCUMENTATION: JOB ID: [id number] Quality ID # [id number]: Final reports with documentation of one or more dose reduction techniques (e.g., Au tomated exposure control, adjustment of the mA and/or kV according to patient size, use of iterative reconstruction technique) 2010 [employer]- All Rights Reserved Reading location - IP/workstation name: [email or web address]
[2020-10-22] MEDS ORDERED: ACETAMINOPHEN 325 MG TABLET PO PRN (17:53)
[2020-10-22] MEDS ORDERED: DEXTROSE 50%-WATER 25 GM/50 ML DISP.SYRIN IV PRN ×2 (17:57)
[2020-10-22] MEDS ORDERED: GLUCAGON,HUMAN RECOMB 1 MG INJ IM PRN (17:57)
[2020-10-22] MEDS ORDERED: DEXTROSE 40% GEL 15 GM TUBE PO PRN ×2 (17:57)
--- NOTE | 2020-10-22 18:15 | EKG REPORT ---
SEVERITY:- NORMAL ECG - SINUS RHYTHM : Confirmed by: Zahida Deluca MD 22-Oct-2020 18:14:24
--- NOTE | 2020-10-22 18:17 | PDOC H&P ---
History of Present Illness Admission Date/PCP: 10/22/20 16:56 GIBSON AGUILAR MD Patient complains of: Headache, slurred speech, History of Present Illness: CINTHYA CARR is a 65 year old male with history of CAD status post PCI, hypertension, diabetes type 2, cervical disc bulging, left rotator cuff tear partial, lower esophageal sphincter dysfunction, who presents to the hospital for complaints of new onset neurological symptoms. His symptoms started yest erday around lunchtime. He started with sudden onset headache mostly involving his parietal and left temporal region. Associated with dysarthria, and feeling of facial droop. States that his did note mild left facial droop in the region of his lip. Also admits to some blurred vision. Today symptoms have progressed including the headache and he is now having photophobia. He denies any nausea vomiting. Denies any trauma to the head or neck. Denies history of migraines. He does have history of CAD with stenting so he takes aspirin and Plavix daily. However he admits to poor compliance with his atorvastatin. In the ER patient received work-up with head CT, CTA head and neck and a neurology consult was performed by the ER provider. Past Medical History Cardiac Medical History: Reports: Coronary Artery Disease, Hyperlipidema, Hypertension - MEDICATED Denies: Myocardial Infarction Pulmonary Medical History: Denies: Asthma, Tuberculosis Neurological Medical History: Denies: Seizures Endocrine Medical History: Reports: Diabetes Mellitus Type 2 GI Medical History: Reports: Gastroesophageal Reflux Disease Denies: Hepatitis, Hiatal Hernia Psychiatric Medical History: Reports: Depression Hematology: Denies: Anemia, Sickle Cell Disease Past Surgical History Past Surgical History: Reports: Appendectomy, Cardiac Catheterization - 1 stent, Coronary Stent, Orthopedic Surgery - shoulder, knee, elbow Denies: Pacemaker Social History Smoking Status: Former Smoker Electronic Cigarette use?: No Frequency of Alcohol Use: None Hx Recreational Drug Use: No Hx Prescription Drug Abuse: No - Advance Directive Resuscitation Status: Full Code Family History Family History: Reviewed & Not Pertinent, DM, Hypertension Parental Family History Reviewed: Yes Children Family History Reviewed: Yes Sibling(s) Family History Reviewed.: Yes Medication/Allergy Home Medications: Allopurinol 100 mg PO DAILY 09/17/13 Aspirin [Aspirin 325 mg Tablet] 325 mg PO DAILY 09/17/13 Atorvastatin Calcium [Lipitor 80 mg Tablet] 80 mg PO DAILY 09/17/13 Clopidogrel Bisulfate [Plavix 75 mg Tablet] 75 mg PO DAILY 09/17/13 Dexlansoprazole [Dexilant 60 mg Capsule] 60 mg PO DAILY 09/17/13 Furosemide [Lasix 20 mg Tablet] 10 mg PO DAILY 09/17/13 Potassium Chloride 20 meq PO DAILY 09/17/13 Lisinopril [Prinivil 10 mg Tablet] 10 mg PO Q12 #60 tablet 05/03/14 Nitroglycerin 0.4 mg SL Q5MP PRN #30 tab.subl 05/03/14 Metoprolol Tartrate [Lopressor 25 mg Tablet] 12.5 mg PO DAILY 01/08/16 Nifedipine 10 mg PO DAILY 01/08/16 Ranolazine [Ranexa 500 mg Tab.sr] 500 mg PO DAILY 01/08/16 Oxycodone HCl/Acetaminophen [Percocet 5-325 mg Tablet] 1 - 2 tab PO Q4H PRN #15 tablet 01/09/16 Sucralfate [Carafate 1 gm Tablet] 1 gm PO QHS #30 tablet 01/09/16 Dulaglutide [Trulicity] 0.75 mg SQ .WEEKLY 10/01/18 Empagliflozin [Jardiance] 10 mg PO DAILY 10/01/18 Neomycin/Polymyxin B/Dexametha [Maxitrol Eye Ointment] 3.5 gm OP BID 10/07/18 Ciprofloxacin HCl [Cipro 500 mg Tablet] 500 mg PO BID #14 tablet 01/25/19 Hydrocodone/Acetaminophen [[place] 5-325 Tablet] 1 each PO Q6HP PRN #12 tablet 01/25/19 Ondansetron [Zofran Odt 4 mg Tablet] 1 - 2 tab PO Q4H PRN #15 tab.rapdis 01/25/19 Tamsulosin HCl [Flomax 0.4 mg Cap.sr] 0.4 mg PO DAILY #20 cap.sr.24h 01/25/19 Hydrocodone/Acetaminophen [[place] 5-325 mg Tablet] 1 tab PO Q6HP PRN #20 tablet 09/29/20 Allergies/Adverse Reactions: butorphanol tartrate [From Stadol] Allergy (Severe, Verified 10/22/20 11:31) Anaphylaxis pseudoephedrine HCl [From Sudafed] Allergy (Intermediate, Verified 10/22/20 11:31) Hives triprolidine HCl [From Actifed] Allergy (Intermediate, Verified 10/22/20 11:31) Hives nalbuphine HCl [From Nubain] Allergy (Unknown, Verified 10/22/20 11:31) Anaphylaxis TOMATO Allergy (Intermediate, Uncoded 10/22/20 11:31) Hives Review of Systems Constitutional: ABSENT: chills, fever(s) Eyes: PRESENT: visual disturbances Ears: ABSENT: hearing changes Nose, Mouth, and Throat: PRESENT: headache(s) Cardiovascular: ABSENT: chest pain Respiratory: ABSENT: cough, dyspnea Gastrointestinal: ABSENT: nausea, vomiting Genitourinary: ABSENT: dysuria Musculoskeletal: PRESENT: muscle weakness - Left arm since rotator cuff tear Neurological: PRESENT: paresthesias - Left. ABSENT: dizziness - Admits to feeling like he needs to the left Psychiatric: ABSENT: anxiety, depression Endocrine: ABSENT: polyuria Hematologic/Lymphatic: ABSENT: easy bleeding Physical Exam Vital Signs: Temp Pulse Resp BP Pulse Ox 98.1 F 72 22 H 147/83 H 100 10/22/20 11:31 10/22/20 12:12 10/22/20 17:01 10/22/20 17:01 10/22/20 17:01 Intake & Output 10/21/20 10/22/20 10/23/20 06:59 06:59 06:59 Intake Total 1000 Balance 1000 Weight 112.5 kg General appearance: PRESENT: no acute distress, cooperative, morbidly obese Head exam: PRESENT: normocephalic Eye exam: PRESENT: EOMI, PERRLA Mouth exam: PRESENT: neck supple Neck exam: ABSENT: JVD, tracheal deviation Respiratory exam: PRESENT: symmetrical, unlabored. ABSENT: accessory muscle use, prolonged expiratory phas, tachypnea, wheezes Cardiovascular exam: PRESENT: RRR, +S1, +S2. ABSENT: diastolic murmur, systolic murmur, tachycardia GI/Abdominal exam: PRESENT: soft. ABSENT: rebound, rigid, tenderness Extremities exam: PRESENT: pedal edema, +1 edema. ABSENT: calf tenderness Neurological exam: PRESENT: alert, awake, oriented to person, oriented to place, oriented to time, oriented to situation, motor sensory deficit - left arm but likely from his rotator cuff tear. ABSENT: altered, ataxia, CN II-XII grossly intact - Only deficit noted is mildf left facial droop. Questionable if dysarthric, aphasic Psychiatric exam: ABSENT: agitated, anxious Focused psych exam: ABSENT: pressured speech Skin exam: ABSENT: jaundice Results Laboratory Results: 10/22/20 12:00 10/22/20 12:00 10/22/20 10/22/20 10/22/20 12:00 12:00 12:00 WBC 4.5 RBC 4.25 L Hgb 11.8 L Hct 36.0 L MCV 85 MCH 27.9 MCHC 32.9 RDW 15.1 H Plt Count 248 Seg Neutrophils % 53.9 Sodium 142.5 Potassium 4.3 Chloride 109 H Carbon Dioxide 26 Anion Gap 8 BUN 17 Creatinine 1.08 Est GFR ( Amer) > 60 Glucose 114 H Calcium 9.1 Total Bilirubin 0.4 AST 37 Alkaline Phosphatase 109 C-Reactive Protein 13.5 H Total Protein 6.9 Albumin 4.1 10/22/20 10/22/20 12:00 12:00 Creatine Kinase 282 H CK-MB (CK-2) 5.36 H Troponin I < 0.012 Impressions: Chest X-Ray 10/22/20 11:39 IMPRESSION: No acute cardiopulmonary process. Head CT 10/22/20 11:39 IMPRESSION: No acute intracranial abnormality. EVIDENCE OF ACUTE STROKE: NO. Head CTA 10/22/20 13:32 IMPRESSION: No abnormality of the intracranial arterial vasculature. Neck CTA 10/22/20 13:32 IMPRESSION: 1. 50% stenosis of the proximal left internal carotid artery. 2. 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 Assessment and Plan - Diagnosis (1) Stroke-like symptoms Is this a current diagnosis for this admission?: Yes Plan: Main symptoms include mild left facial droop, paresthesia in his left face. Questionable if dysarthric but he notes that his voice feels a little slurred compared to his usual. Left arm is weak but likely from his partial rotator cuff tear. His symptoms could be from an acute stroke or from complex migraine. We will initiate stroke protocol Permissive hypertension for now We will give aspirin. Continue Plavix Atorvastatin Check lipid panel and hemoglobin A1c Placed on telemetry CTA head shows no significant findings. CTA of the neck reveals 50% carotid artery stenosis on the left-intervention not required. Check stat MRI of the brain (2) Headache Qualifiers: Headache chronicity pattern: acute headache Intractability: not intractable Is this a current diagnosis for this admission?: Yes Plan: Ddx: Tension headache from stroke or Complex migraine or from Cervical Disc herniation Nothing seems to have helped him so far so we will try headache protocol with Reglan, Benadryl and Toradol. Notably CTA head showed no evidence of bleed or aneurysm. (3) CAD (coronary artery disease) Qualifiers: Coronary Disease-Associated Artery/Lesion type: [place] artery [place] vs. transplanted heart: [place] heart Associated angina: without angina Qualified Code(s): I25.10 - Atherosclerotic heart disease of [place] coronary artery without angina pectoris Is this a current diagnosis for this admission?: Yes Plan: c/w ASA, plavix, BB, Lipitor. Follows with Dr. Presley. 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-way use Diabetes mellitus complication status: with neurologic complications Diabetes mellitus complication detail: with polyneuropathy Qualified Code(s): E11.42 - Type 2 diabetes mellitus with diabetic polyneuropathy Is this a current diagnosis for this admission?: Yes Plan: SSI, Accuchecks, Gabapentin for neuropathy (5) HTN (hypertension) Qualifiers: Hypertension type: unspecified Qualified Code(s): I10 - Essential (primary) hypertension Is this a current diagnosis for this admission?: Yes Plan: permissive HTN for now pending MRI (6) Morbid obesity with BMI of 40.0-44.9, adult Is this a current diagnosis for this admission?: Yes Plan: lipid panel - Time Time Spent with patient: 35 or more minutes Medications reviewed and adjusted accordingly: Yes Anticipated Discharge Disposition: Home, Self Care Anticipated Discharge Timeframe: within 24 hours
[2020-10-22] MEDS ORDERED: METOCLOPRAMIDE HCL INJ/PF 10 MG/2 ML SDV IV ONE (18:45)
[2020-10-22] MEDS ORDERED: DIPHENHYDRAMINE HCL 50 MG/ML VIAL IV ONE (18:45)
[2020-10-22] MEDS ORDERED: ASPIRIN 81 MG TABLET, CHEWABLE PO ONE (18:45)
[2020-10-22] MEDS ORDERED: KETOROLAC TROMETHAMINE INJ/PF 30 MG/1 ML SDV IV ONE (18:45)
--- NOTE | 2020-10-22 20:01 | RADIOLOGY REPORT (SQ) ---
EXAM DESCRIPTION: MRI HEAD WITHOUT IMAGES COMPLETED DATE/TIME: 10/22/2020 7:48 pm REASON FOR STUDY: strokelike symptoms. RESENDEZ. Left face droop COMPARISON: 08/24/2020 TECHNIQUE: Multiplanar imaging includes non-contrasted T1, T2, FLAIR, and diffusion with ADC map seq uences. Images stored on PACS. LIMITATIONS: None. FINDINGS: ANATOMY: No anomalies. Normal vascular flow voids. Pituitary fossa normal. CSF SPACES: Normal in size and contour. No hemorrhage. CEREBRUM: Sulci and gyri normal in size and contour. Normal white matter signal on FLAIR imaging. No evidence of hemorrhage, mass, or extraaxial fluid collection. POSTERIOR FOSSA: No signal alteration. No hemorrhage. No edema, masses or mass effect. Internal lc tory canals, cerebello-pontine angles, mastoids normal. DIFFUSION IMAGING: Negative for acute or sub-acute infarction. ORBITS: No masses. Globes normal. PARANASAL SINUSES: No fluid levels. Mucosa normal. OTHER: No other significant finding. IMPRESSION: NORMAL MRI OF THE BRAIN WITHOUT INTRAVENOUS GADOLINIUM CONTRAST. EVIDENCE OF ACUTE STROKE: NO. TECHNICAL DOCUMENTATION: JOB ID: [id number] [employer]- All Rights Reserved Reading location - IP/workstation name: [email or web address]
[2020-10-22] MEDS: CLOPIDOGREL BISULFATE 75 MG TABLET PO SCH (20:25)
[2020-10-22] MEDS: INSULIN LISPRO 100 UNIT/ML 3 ML VIAL SUBCUT SCH (21:08)
[2020-10-22] MEDS: FAMOTIDINE INJ/PF 20 MG/2 ML SDV IV SCH (21:18)
[2020-10-22] MEDS: GABAPENTIN 100 MG CAPSULE PO SCH (21:18)
[2020-10-22] MEDS: TIZANIDINE HCL 4 MG TABLET PO SCH (21:56)
[2020-10-22] MEDS ORDERED: TIZANIDINE HCL 4 MG TABLET PO SCH (22:00)
[2020-10-22] MEDS ORDERED: ATORVASTATIN CALCIUM 80 MG TABLET PO SCH (22:00)
[2020-10-23] MEDS ORDERED: KETOROLAC TROMETHAMINE INJ/PF 30 MG/1 ML SDV IV ONE (04:30)
[2020-10-23] MEDS ORDERED: METOCLOPRAMIDE HCL INJ/PF 10 MG/2 ML SDV IV ONE (04:30)
[2020-10-23] MEDS ORDERED: DIPHENHYDRAMINE HCL 50 MG/ML VIAL IV ONE (04:30)
[2020-10-23] MEDS: GABAPENTIN 100 MG CAPSULE PO SCH (05:01)
[2020-10-23] MEDS: TIZANIDINE HCL 4 MG TABLET PO SCH (05:01)
[2020-10-23 06:57] LABS: BLOOD UREA NITROGEN 16 mg/dL (7-20); CALCIUM 8.6 mg/dL (8.4-10.2); CHOLESTEROL 95.86 mg/dL (0-200); GLUCOSE 118 mg/dL (75-110); POTASSIUM 3.9 mmol/L (3.6-5.0); TRIGLYCERIDES 79 mg/dL (<150)
[2020-10-23 07:03] LABS: CARBON DIOXIDE 27 mmol/L (22-30); CHLORIDE 112 mmol/L (98-107)
[2020-10-23 07:06] LABS: ANION GAP 3 (5-19)
[2020-10-23 07:07] LABS: DIRECT LDL 43 mg/dL (<100)
[2020-10-23] MEDS: INSULIN LISPRO 100 UNIT/ML 3 ML VIAL SUBCUT SCH ×2 (08:10→12:03)
[2020-10-23] MEDS: CLOPIDOGREL BISULFATE 75 MG TABLET PO SCH (09:06)
[2020-10-23] MEDS: FAMOTIDINE INJ/PF 20 MG/2 ML SDV IV SCH (09:07)
[2020-10-23] MEDS ORDERED: ENOXAPARIN SODIUM INJ 40 MG/0.4 ML DISP.SYRIN SUBCUT SCH (10:00)
[2020-10-23] MEDS ORDERED: METOPROLOL TARTRATE 25 MG TABLET PO SCH (10:00)
[2020-10-23] MEDS ORDERED: ASPIRIN 81 MG TABLET, ENT COATED PO SCH (10:00)
--- NOTE | 2020-10-23 13:42 | PDOC DISCHARGE SUMMARY ---
Impression - Admit/DC Date/PCP Admission Date/Primary Care Provider: 10/22/20 16:56 GIBSON AGUILAR MD Discharge Date: 10/23/20 - Discharge Diagnosis (1) Migraine headache Is this a current diagnosis for this admission?: Yes (2) Stroke-like symptoms Is this a current diagnosis for this admission?: Yes (3) CAD (coronary artery disease) Is this a current diagnosis for this admission?: Yes (4) Diabetes Is this a current diagnosis for this admission?: Yes (5) HTN (hypertension) Is this a current diagnosis for this admission?: Yes (6) Morbid obesity with BMI of 40.0-44.9, adult Is this a current diagnosis for this admission?: Yes - Additional Information Resuscitation Status: Full Code Discharge Diet: Cardiac Referrals: GIBSON AGUILAR MD [Primary Care Provider] - Follow up as needed Prescriptions: Butalb/Acetaminophen/Caffeine [Fioricet (50-325-40 mg) Tablet] 1 tab PO Q8HP PRN #20 tab PRN Reason: Home Medications: Aspirin [Aspirin 325 mg Tablet] 325 mg PO DAILY 09/17/13 Atorvastatin Calcium [Lipitor 80 mg Tablet] 80 mg PO DAILY 09/17/13 Clopidogrel Bisulfate [Plavix 75 mg Tablet] 75 mg PO DAILY 09/17/13 Dexlansoprazole [Dexilant 60 mg Capsule] 60 mg PO DAILY 09/17/13 Furosemide [Lasix 20 mg Tablet] 10 mg PO DAILY 09/17/13 Potassium Chloride 20 meq PO DAILY 09/17/13 Metoprolol Tartrate [Lopressor 25 mg Tablet] 12.5 mg PO DAILY 01/08/16 Nifedipine 10 mg PO DAILY 01/08/16 Ranolazine [Ranexa 500 mg Tab.sr] 500 mg PO DAILY 01/08/16 Sucralfate [Carafate 1 gm Tablet] 1 gm PO QHS #30 tablet 01/09/16 Dulaglutide [Trulicity] 0.75 mg SQ SA 10/01/18 Empagliflozin [Jardiance] 10 mg PO DAILY 10/01/18 Tamsulosin HCl [Flomax 0.4 mg Cap.sr] 0.4 mg PO DAILY #20 cap.sr.24h 01/25/19 Gabapentin [Neurontin 300 mg Capsule] 300 mg PO QHS 10/22/20 Hydrocodone/Acetaminophen [[place] 5-325 Tablet] 1 each PO Q6HP PRN 10/22/20 Lisinopril [Prinivil 10 mg Tablet] 20 mg PO DAILY 10/22/20 Methocarbamol [Robaxin 500 mg Tablet] 500 mg PO Q8 10/22/20 Ondansetron [Zofran Odt 4 mg Tablet] 2 tab PO Q4HP PRN 10/22/20 Tizanidine HCl [Zanaflex 4 mg Tablet] 4 mg PO Q8HP PRN 10/22/20 Butalb/Acetaminophen/Caffeine [Fioricet (50-325-40 mg) Tablet] 1 tab PO Q8HP PRN #20 tab 10/23/20 History of Present Illiness History of Present Illness: CINTHYA CARR is a 65 year old male with history of CAD status post PCI, hypertension, diabetes type 2, cervical disc bulging, left rotator cuff tear partial, lower esophageal sphincter dysfunction, who presents to the hospital for complaints of new onset neurological symptoms. His symptoms started yesterday around lunchtime. He started with sudden onset headache mostly involving his parietal and left temporal region. Associated with dysarthria, and feeling of facial droop. States that his did note mild left facial droop in the region of his lip. Also admits to some blurred vision. Today symptoms have progressed including the headache and he is now having photophobia. He denies any nausea vomiting. Denies any trauma to the head or neck. Denies history of migraines. He does have history of CAD with stenting so he takes aspirin and Plavix daily. However he admits to poor compliance with his atorvastatin. In the ER patient received work-up with head CT, CTA head and neck and a neurology consult was performed by the ER provider. Hospital Course Hospital Course: Patient presented with strokelike symptoms including left facial droop which was mild, visual changes accompanied by headache. Headache involves his left parietal and temporal region. Notably he had no pronounced muscle weakness. He underwent stroke work-up which was negative so far. His CTA did brass pickler 50% carotid stenosis for which no intervention is required. MRI of the brain was negative for any stroke. ESR was normal and CRP was only minimally elevated making giant cell arteritis highly unlikely. I strongly suspect patient had a complex migraine which precipitated his symptoms. I did give him a migraine cocktail yesterday which helped his headache significantly. Today his headache is down to a 2/10. Given his cardiac history, I would like to avoid discharging with NSAIDs so I will discharge him with Fioricet to use as needed for his migraines. Should his migraines become very frequent he may need prophylactics. He is scheduled to follow-up with his neurosurgeon regarding his cervical disc bulging which could also trigger headaches. Physical Exam Vital Signs: Temp Pulse Resp BP Pulse Ox 97.9 F 63 16 92/51 L 99 10/23/20 09:50 10/23/20 08:12 10/23/20 08:12 10/23/20 08:12 10/23/20 08:12 Intake & Output 10/22/20 10/23/20 10/24/20 06:59 06:59 06:59 Intake Total 1444 Balance 1444 Weight 108.7 kg General appearance: PRESENT: no acute distress, cooperative Neck exam: ABSENT: JVD Respiratory exam: PRESENT: unlabored Neurological exam: PRESENT: alert, awake, oriented to person, oriented to place, oriented to time, oriented to situation Results Laboratory Results: WBC 4.5 10^3/uL (4.0-10.5) 10/22/20 12:00 RBC 4.25 10^6/uL (4.35-5.55) L 10/22/20 12:00 Hgb 11.8 g/dL (13.5-17.0) L 10/22/20 12:00 Hct 36.0 % (37.9-51.0) L 10/22/20 12:00 MCV 85 fl (80-97) 10/22/20 12:00 MCH 27.9 pg (27.0-33.4) 10/22/20 12:00 MCHC 32.9 g/dL (32.0-36.0) 10/22/20 12:00 RDW 15.1 % (11.5-14.0) H 10/22/20 12:00 Plt Count 248 10^3/uL (150-450) 10/22/20 12:00 Lymph % (Auto) 28.4 % (13-45) 10/22/20 12:00 [place] % (Auto) 12.9 % (3-13) 10/22/20 12:00 Eos % (Auto) 3.7 % (0-6) 10/22/20 12:00 Baso % (Auto) 1.1 % (0-2) 10/22/20 12:00 Absolute Neuts (auto) 2.5 10^3/uL (1.7-8.2) 10/22/20 12:00 Absolute Lymphs (auto) 1.3 10^3/uL (0.5-4.7) 10/22/20 12:00 Absolute Monos (auto) 0.6 10^3/uL (0.1-1.4) 10/22/20 12:00 Absolute Eos (auto) 0.2 10^3/uL (0.0-0.6) 10/22/20 12:00 Absolute Basos (auto) 0.0 10^3/uL (0.0-0.2) 10/22/20 12:00 Seg Neutrophils % 53.9 % (42-78) 10/22/20 12:00 ESR 16 mm/hr (0-20) 10/22/20 12:00 PT 13.2 SEC (11.4-15.4) 10/22/20 12:00 INR 0.98 10/22/20 12:00 APTT 28.6 SEC (23.5-35.8) 10/22/20 12:00 Sodium 141.7 mmol/L (137-145) 10/23/20 06:15 Potassium 3.9 mmol/L (3.6-5.0) 10/23/20 06:15 Chloride 112 mmol/L (98-107) H 10/23/20 06:15 Carbon Dioxide 27 mmol/L (22-30) 10/23/20 06:15 Anion Gap 3 (5-19) L 10/23/20 06:15 BUN 16 mg/dL (7-20) 10/23/20 06:15 Creatinine 1.03 mg/dL (0.52-1.25) 10/23/20 06:15 Est GFR ( Amer) > 60 (>60) 10/23/20 06:15 Est GFR (MDRD) Non-Af > 60 (>60) 10/23/20 06:15 Glucose 118 mg/dL (75-110) H 10/23/20 06:15 POC Glucose 92 mg/dL (70-110) 10/22/20 21:04 Hemoglobin A1c % 5.7 % (4.7-6.0) 10/23/20 06:15 Calcium 8.6 mg/dL (8.4-10.2) 10/23/20 06:15 Magnesium 2.1 mg/dL (1.6-2.3) 10/23/20 06:15 Total Bilirubin 0.4 mg/dL (0.2-1.3) 10/22/20 12:00 Direct Bilirubin 0.3 mg/dL (0.0-0.4) 10/22/20 12:00 Neonat Total Bilirubin Not Reportable 10/22/20 12:00 Neonat Direct Bilirubin Not Reportable 10/22/20 12:00 Neonat Indirect Bili Not Reportable 10/22/20 12:00 AST 37 U/L (17-59) 10/22/20 12:00 ALT 27 U/L (<50) 10/22/20 12:00 Alkaline Phosphatase 109 U/L (38-126) 10/22/20 12:00 Creatine Kinase 282 U/L (55-170) H 10/22/20 12:00 CK-MB (CK-2) 5.36 ng/mL (<4.55) H 10/22/20 12:00 Troponin I < 0.012 ng/mL 10/22/20 12:00 C-Reactive Protein 13.5 mg/L (<10.0) H 10/22/20 12:00 Total Protein 6.9 g/dL (6.3-8.2) 10/22/20 12:00 Albumin 4.1 g/dL (3.5-5.0) 10/22/20 12:00 Triglycerides 79 mg/dL (<150) 10/23/20 06:15 Cholesterol 95.86 mg/dL (0-200) 10/23/20 06:15 LDL Cholesterol Direct 43 mg/dL (<100) 10/23/20 06:15 VLDL Cholesterol 16.0 mg/dL (10-31) 10/23/20 06:15 HDL Cholesterol 40 mg/dL (>40) 10/23/20 06:15 TSH 2.22 uIU/mL (0.47-4.68) 10/23/20 06:15 10/22/20 12:00 CK-MB (CK-2) 5.36 H Troponin I < 0.012 Impressions: Head MRI 10/22/20 00:00 IMPRESSION: NORMAL MRI OF THE BRAIN WITHOUT INTRAVENOUS GADOLINIUM CONTRAST. EVIDENCE OF ACUTE STROKE: NO. Chest X-Ray 10/22/20 11:39 IMPRESSION: No acute cardiopulmonary process. Head CT 10/22/20 11:39 IMPRESSION: No acute intracranial abnormality. EVIDENCE OF ACUTE STROKE: NO. Head CTA 10/22/20 13:32 IMPRESSION: No abnormality of the intracranial arterial vasculature. Neck CTA 10/22/20 13:32 IMPRESSION: 1. 50% stenosis of the proximal left internal carotid artery. 2. 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 Plan Time Spent: Less than 30 Minutes Stroke Is this a Stroke Patient?: No Acute Heart Failure Is this a Heart Failure Patient?: No
[2020-10-23 13:46] VITALS: BP 137/79
== END 2020-10-23 14:25 | disposition home or self-care (01) ==
LOC: ER 11:23 → EH 16:56 → INTOOBSV 16:56 → 5TH 19:38
PROVIDERS: ADMIT Internal Medicine; ATTEND Internal Medicine
DX: G43.909 Migraine, unspecified, not intractable, without status migrainosus (principal); I25.10 Atherosclerotic heart disease of native coronary artery without angina pectoris; R47.1 Dysarthria and anarthria; R29.810 Facial weakness; I65.22 Occlusion and stenosis of left carotid artery; E11.42 Type 2 diabetes mellitus with diabetic polyneuropathy; I10 Essential (primary) hypertension; R29.701 NIHSS score 1; Z95.5 Presence of coronary angioplasty implant and graft; E66.01 Morbid (severe) obesity due to excess calories; M50.20 Other cervical disc displacement, unspecified cervical region; R20.2 Paresthesia of skin; M62.81 Muscle weakness (generalized); M75.102 Unspecified rotator cuff tear or rupture of left shoulder, not specified as traumatic; R60.0 Localized edema; H53.9 Unspecified visual disturbance; E78.5 Hyperlipidemia, unspecified; Z68.41 Body mass index [BMI] 40.0-44.9, adult; Z79.82 Long term (current) use of aspirin; Z79.02 Long term (current) use of antithrombotics/antiplatelets; Z87.891 Personal history of nicotine dependence; Z82.49 Family history of ischemic heart disease and other diseases of the circulatory system; Z79.899 Other long term (current) drug therapy; Z91.14 Patient's other noncompliance with medication regimen; R26.89 Other abnormalities of gait and mobility; Z98.890 Other specified postprocedural states
CPT/HCPCS: 93005; 99285; 96360; 36415 ×2; 82553; 82962 ×2; 82550; 83735; 84443; 85025; 85652; 85610; 85730; 86140; 80048; 80053; 84484; 83036; 80061; 70551; 71045; 70450; 70496; 70498; 93010; 97116; 97162; 97165; G0378 ×3; J3490 ×2; J1200 ×2; J1885 ×2; J2765 ×2; J1650; J7030; S0028 ×2

== ENCOUNTER → 2020-11-09 | Outpatient (CLI) | payer BC | LOC: OD 09:42 | PROVIDERS: ATTEND Nurse Practitioner Family | DX: E11.65 Type 2 diabetes mellitus with hyperglycemia (principal) | CPT/HCPCS: 36415; 82985 ==